=== PATIENT | female | born 1960 | race Hispanic/Latino ===

== ENCOUNTER 2016-11-29 16:30 | Emergency (ER) | payer MEDICAID ==
[2016-11-29 16:30] VITALS: BMI 45.7
[2016-11-29 16:46] VITALS: TEMP 98.2; O2SAT 97
--- NOTE | 2016-11-29 18:22 | ED PDOC ---
Lower Extremity Pain/Injury Time Seen by Provider: 11/29/16 18:03 Chief Complaint (Nursing): Lower Extremity Problem/Injury History Per: Patient Additional Complaint(s): Pt. states yesterday she attempted to get up from a low seated position when she suddenly felt her L knee "pop." Since then she's been having pain to the area. Has been taking "Motrin and Ultram" (last dose was last night). Pt. states she did not fall down as another person was able to keep her from falling. Denies previous knee problems, blunt trauma, calf pain, numbness, tingling. Past Medical History Reviewed: Historical Data, Nursing Documentation, Vital Signs Vital Signs: Last Vital Signs Temp 98.2 F 11/29/16 16:39 Pulse 74 11/29/16 16:39 Resp 18 11/29/16 16:39 BP 98/59 L 11/29/16 16:39 Pulse Ox 97 11/29/16 16:39 - Medical History PMH: Anxiety, Arthritis, Asthma, Depression, Diabetes, HTN, Hypercholesterolemia , Kidney Stones (stent placement), Pneumonia, Chronic Kidney Disease Denies: HIV - Family History Family History: States: Unknown Family Hx - Immunization History Hx Tetanus Toxoid Vaccination: No Hx Influenza Vaccination: Yes Hx Pneumococcal Vaccination: Yes - Home Medications Home Medications: Ambulatory Orders Medication Instructions Recorded Amitriptyline [Elavil] 10 mg PO BID 08/24/15 Hydrochlorothiazide 25 mg PO DAILY 08/24/15 MetFORMIN [glucoPHAGE] 1,000 mg PO BID 08/24/15 Metoprolol Tartrate 25 mg PO BID #0 tablet 08/24/15 Omeprazole 20 mg PO HS 08/24/15 Oxybutynin XL [Ditropan XL] 10 mg PO BID 08/24/15 Simvastatin 20 mg PO DAILY 08/24/15 clonazePAM [Klonopin] 0.5 mg PO HS 08/24/15 Multivit,Iron,Min 5/Folic Acid 1 tab PO DAILY 03/19/16 [Strovite Forte Caplet] Multimineral/Multivitamin 1 tab PO DAILY #0 tab 03/21/16 [Therapeutic-M Tab] Ziprasidone [Geodon] 40 mg PO HS #0 cap 03/21/16 Calcium/Vitamin D [Oyster Shell 1 tab PO BID #0 tab 03/29/16 Calcium/Vitamin D 500 mg-200 IU] Cyanocobalamin [Vitamin B12 1000 1,000 mcg PO DAILY #0 tab 03/29/16 mcg Tab] Escitalopram [Lexapro] 20 mg PO HS #0 tab 03/29/16 Gabapentin [Neurontin] 600 mg PO TID@0900,1700,2200 #0 tab 03/29/16 Losartan [Cozaar] 25 mg PO DAILY #0 tab 03/29/16 traMADol/Acetaminophen [Ultracet 1 tab PO Q6 PRN #10 tab 03/29/16 325 MG-37.5 MG] Dicyclomine [Bentyl] 20 mg PO Q6 PRN #12 tab 08/21/16 Metoclopramide [Reglan] 10 mg PO Q8 #12 tab 08/21/16 metroNIDAZOLE 0.75% [Metrogel 45 gm EXT BID #1 tube 11/10/16 Cream] traMADol [Ultram] 50 mg PO TID PRN #12 tab 11/10/16 - Allergies Allergies/Adverse Reactions: Allergies Allergy/AdvReac Type Severity Reaction Status Date / Time acetaminophen [From Percocet] Allergy RASH Verified 11/10/16 17:45 ciprofloxacin [From Cipro] Allergy RASH Verified 11/10/16 17:45 ciprofloxacin HCl Allergy RASH Verified 11/10/16 17:45 [From Cipro] hydromorphone HCl Allergy RASH Verified 11/10/16 17:45 [From Dilaudid] lisinopril Allergy RASH Verified 11/10/16 17:45 morphine Allergy ITCHING Verified 11/10/16 17:45 nitroglycerin Allergy RASH Verified 11/10/16 17:45 oxycodone HCl [From Percocet] Allergy RASH Verified 11/10/16 17:45 Penicillins Allergy RASH Verified 11/10/16 17:45 Review of Systems ROS Statement: Except As Marked, All Systems Reviewed And Found Negative Physical Exam - Physical Exam Appears: Positive for: Well, Non-toxic, No Acute Distress Skin: Positive for: Normal Color, Warm. Negative for: Rash Pulses-Dorsalis Pedis (L): 2+ Pulses-Dorsalis Pedis (R): 2+ Extremity: Positive for: Normal ROM, Capillary Refill (< 2 seconds of LLE), Other (L knee with mild anterior tenderness without deformity or swelling). Negative for: Pedal Edema, Calf Tenderness (b/l) - ECG ECG: Positive for: Interpreted By Me ECG Rhythm: Positive for: Sinus Rhythm. Negative for: ST/T Changes Rate: 90 O2 Sat by Pulse Oximetry: 97 - Radiology X-Ray: Interpreted by Me (L knee x-ray) X-Ray Interpretation: Other (moderate DJD; multiple osteophytes) - Progress ED Course And Treament: Repeat BP: 105/70 Knee x-ray ordered which showed multiple osteophytes. CT ordered. Disposition - Clinical Impression Clinical Impression: Knee pain - Patient ED Disposition Is Patient to be Admitted: Transfer of Care (Signed out to Claribel TATUM pending CT results and final disposition.) - Disposition Referrals: Fahad Montes MD [Staff Provider] - Disposition Time: 20:00 Condition: STABLE
[2016-11-29 19:25] VITALS: BP 105/70; RESP 19
[2016-11-29 19:51] VITALS: PULSE 90
--- NOTE | 2016-11-29 20:28 | CT ---
EXAM: CT Left Lower Extremity Without Intravenous Contrast, Knee CLINICAL HISTORY: 56 years old, female; Pain; Knee; Left; Additional info: Patient attempted to get up from a low seated position when she suddenly felt her left knee "pop". Since then she's been having pain. TECHNIQUE: Axial computed tomography images of the left knee without intravenous contrast. This CT exam was performed using one or more of the following dose reduction techniques: automated exposure control, adjustment of the mA and/or kV according to patient size, and/or use of iterative reconstruction technique. Coronal and sagittal reformatted images were created and reviewed. EXAM DATE/TIME: 11/29/2016 7:21 PM COMPARISON: Recent left knee radiographs 11/29/2016 6:18:25 PM FINDINGS: BONES/JOINTS: Moderate knee joint effusion is seen. This does not appear hemorrhagic or contain fat to suggest a lipohemarthrosis. Tricompartmental osteoarthritic/degenerative changes. There are moderate tricompartmental osteoarthritic changes seen--osteophyte formation, subchondral cystic changes, and subchondral sclerosis are noted. The joint spaces appear relatively preserved. No acute fractures are seen. No evidence of acute dislocation. SOFT TISSUES: 5.5 x 2.6 cm Antony's cyst noted. No evidence of soft tissue hematoma. Note that the extremity soft tissues, such as the tendons and ligaments, are suboptimally evaluated by CT compared with MRI. IMPRESSION: - No acute fractures identified. - Moderate knee joint effusion. - 5.5 cm Antony's cyst. - Osteoarthritic changes, as described. - See above for remaining findings.
--- NOTE | 2016-11-29 20:36 | ED PDOC ---
- ECG O2 Sat by Pulse Oximetry: 97 - Progress ED Course And Treament: Case endorsed to marketing underwriter from Ryley TATUM pending CT lower extremity EXAM: CT Left Lower Extremity Without Intravenous Contrast, Knee CLINICAL HISTORY: 56 years old, female; Pain; Knee; Left; Additional info: Patient attempted to get up from a low seated position when she suddenly felt her left knee "pop". Since then she's been having pain. TECHNIQUE: Axial computed tomography images of the left knee without intravenous contrast. This CT exam was performed using one or more of the following dose reduction techniques: automated exposure control, adjustment of the mA and/or kV according to patient size, and/or use of iterative reconstruction technique. Coronal and sagittal reformatted images were created and reviewed. EXAM DATE/TIME: 11/29/2016 7:21 PM COMPARISON: Recent left knee radiographs 11/29/2016 6:18:25 PM FINDINGS: BONES/JOINTS: Moderate knee joint effusion is seen. This does not appear hemorrhagic or contain fat to suggest a lipohemarthrosis. Tricompartmental osteoarthritic/degenerative changes. There are moderate tricompartmental osteoarthritic changes seen--osteophyte formation, subchondral cystic changes, and subchondral sclerosis are noted. The joint spaces appear relatively preserved. No acute fractures are seen. No evidence of acute dislocation. SOFT TISSUES: 5.5 x 2.6 cm Antony's cyst noted. No evidence of soft tissue hematoma. Note that the extremity soft tissues, such as the tendons and ligaments, are suboptimally evaluated by CT compared with MRI. IMPRESSION: - No acute fractures identified. - Moderate knee joint effusion. - 5.5 cm Antony's cyst. - Osteoarthritic changes, as described. - See above for remaining findings. Patient educated on findings, left knee wrapped in JILLIAN compression. Rx Naproxen provided. Patient educated on RICE. Patient states she has an orthopedist she would like to follow up with and has an appt with her primary care doctor next week to obtain referral. Return to ED for worsening/concerning symtoms. Disposition - Clinical Impression Clinical Impression: Knee pain, Bakers cyst - POA Present On Arrival: None - Disposition Referrals: Fahad Montes MD [Staff Provider] - Disposition: Routine/Home Disposition Time: 20:37 Condition: STABLE Prescriptions: Naproxen [Naprosyn] 500 mg PO Q12 PRN #20 tablet PRN Reason: Pain, Moderate (4-7) Instructions: Antony's Cyst (ED), Swollen Knee Joint (ED), RICE Therapy (ED)
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
== END 2016-11-29 23:47 | disposition home or self-care (01) ==
LOC: H.ER 16:30
DX: M71.22 Synovial cyst of popliteal space [Baker], left knee (principal); M17.12 Unilateral primary osteoarthritis, left knee; E11.22 Type 2 diabetes mellitus with diabetic chronic kidney disease; E78.00 Pure hypercholesterolemia, unspecified; F32.9 Major depressive disorder, single episode, unspecified; F41.9 Anxiety disorder, unspecified; I12.9 Hypertensive chronic kidney disease with stage 1 through stage 4 chronic kidney disease, or unspecified chronic kidney disease; J45.909 Unspecified asthma, uncomplicated; Z79.84 Long term (current) use of oral hypoglycemic drugs; Z88.0 Allergy status to penicillin

== ENCOUNTER 2016-12-19 10:58 | Observation (INO) | payer MEDICAID ==
[2016-12-19 10:58] VITALS: BMI 45.7
[2016-12-19 11:03] VITALS: TEMP 98
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
[2016-12-19] MEDS ORDERED: DiphenhydrAMINE 50 mg/ml Inj IVP STA (11:49)
[2016-12-19] MEDS ORDERED: Sodium Chloride 0.9% 1,000 ML IV STA ×3 (11:50→14:39)
[2016-12-19] MEDS ORDERED: DiphenhydrAMINE 50 mg/ml Inj ONE (11:53)
[2016-12-19 12:11] LABS: BASO # 0.1 K/uL (0.0-0.2); BASO % 1.3 % (0.0-2.0); EOS # 0.1 K/uL (0.0-0.7); EOS % 1.7 % (0.0-4.0); HEMOGLOBIN 11.9 g/dL (12.0-16.0); LYMPH # 2.1 K/uL (1.0-4.3); LYMPH % 26.3 % (20.0-40.0); MEAN CELL VOLUME 74.2 fl (81.0-99.0); MEAN CORPUSCULAR HEMOGLOBIN 23.8 pg (27.0-31.0); MONO # 0.5 K/uL (0.0-0.8); MONO % 6.2 % (0.0-10.0); NEUT # 5.1 K/uL (1.8-7.0); NEUT % 64.5 % (50.0-75.0); NRBC % 0.2 % (0.0-0.0); RED CELL DISTRIBUTION WIDTH 17.3 % (11.5-14.5); WHITE BLOOD COUNT 7.9 K/uL (4.8-10.8)
[2016-12-19 12:38] LABS: ALB/GLOB RATIO 1.3 (1.0-2.1); ALBUMIN 4.1 g/dL (3.5-5.0); CALCIUM 10.2 mg/dL (8.4-10.2)
--- NOTE | 2016-12-19 15:56 | CT ---
PROCEDURE: CT Abdomen and Pelvis without intravenous contrast HISTORY: r/o renal stone COMPARISON: 08/21/2016 TECHNIQUE: Technique. Unenhanced study. Neither oral nor intravenous contrast administered. Radiation dose: Total exam DLP = mGy-cm. This CT exam was performed using one or more of the following dose reduction techniques: Automated exposure control, adjustment of the mA and/or kV according to patient size, and/or use of iterative reconstruction technique. FINDINGS: LOWER THORAX: Unremarkable. LIVER: Unremarkable. No gross lesion or ductal dilatation. GALLBLADDER AND BILE DUCTS: Unremarkable. PANCREAS: Unremarkable. No gross lesion or ductal dilatation. SPLEEN: Unremarkable. ADRENALS: Unremarkable. No mass. KIDNEYS AND URETERS: Stable bilateral nonobstructing renal calculus disease. No evidence of hydroureter. Unremarkable urinary bladder is visualized. VASCULATURE: Unremarkable. No aortic aneurysm. BOWEL: Unremarkable. No obstruction. No gross mural thickening. APPENDIX: Unremarkable. Normal appendix. PERITONEUM: Unremarkable. No free fluid. No free air. LYMPH NODES: Unremarkable. No enlarged lymph nodes. BLADDER: Unremarkable. REPRODUCTIVE: Unremarkable. BONES: No acute fracture. OTHER FINDINGS: None. IMPRESSION: No significant interval change compared to the prior examination(s). Bilateral nonobstructing renal calculus disease. Largest stone in the lower pole of the right kidney measures 5 x 11 mm.
[2016-12-19 17:13] LABS: SQUAMOUS EPITHIAL 2 /hpf (0-5); URINE BILIRUBIN NEGATIVE (NEGATIVE); URINE BLOOD MODERATE (NEGATIVE); URINE CLARITY CLEAR (Clear); URINE COLOR YELLOW (YELLOW); URINE GLUCOSE (UA) NEG (Normal); URINE LEUKOCYTE ESTERASE TRACE Leu/uL (Negative); URINE NITRATE NEGATIVE (NEGATIVE); URINE PROTEIN 30 mg/dL (NEGATIVE); URINE UROBILINOGEN 0.2-1.0 mg/dL (0.2-1.0)
[2016-12-19 18:50] VITALS: BP 142/89; PULSE 72; RESP 18
[2016-12-20 16:52] VITALS: O2SAT 99
== END 2016-12-19 20:10 | disposition home or self-care (01) ==
LOC: H.ER 10:58 → H.EROBSV 16:25
PROVIDERS: ADMIT Emergency Medicine; ATTEND Emergency Medicine
DX: M54.9 Dorsalgia, unspecified (principal); E11.22 Type 2 diabetes mellitus with diabetic chronic kidney disease; J45.909 Unspecified asthma, uncomplicated; E78.00 Pure hypercholesterolemia, unspecified; I12.9 Hypertensive chronic kidney disease with stage 1 through stage 4 chronic kidney disease, or unspecified chronic kidney disease; N18.9 Chronic kidney disease, unspecified; Z87.442 Personal history of urinary calculi; F32.9 Major depressive disorder, single episode, unspecified; F41.9 Anxiety disorder, unspecified; M19.90 Unspecified osteoarthritis, unspecified site; F31.9 Bipolar disorder, unspecified; E66.9 Obesity, unspecified; G89.29 Other chronic pain; Z79.84 Long term (current) use of oral hypoglycemic drugs

== ENCOUNTER 2017-01-30 17:42 | Emergency (ER) | payer MEDICAID ==
[2017-01-30 17:43] VITALS: BMI 45.7
[2017-01-30 18:19] VITALS: BP 122/78; PULSE 92; RESP 20; TEMP 98; O2SAT 99
--- NOTE | 2017-01-30 18:32 | ED PDOC ---
Lower Extremity Pain/Injury Time Seen by Provider: 01/30/17 18:20 Chief Complaint (Nursing): Lower Extremity Problem/Injury Chief Complaint (Provider): left knee pain, right lower back pain History Per: Patient History/Exam Limitations: no limitations Onset/Duration Of Symptoms: Mins (45) Current Symptoms Are (Timing): Still Present Severity: Moderate Additional History Per: Patient Additional Complaint(s): The patient is a 56yo female, past medical history of DM, hypertension, presents to the ED for evaluation of a twisting type injury to her left knee and lower back. Patient reports she missed a step and while attempting to stop herself from falling, she heard a popping noise in her left knee followed by pain and swelling, as well as twisting her lower back resulting in pain. Patient states she has had prior "popping" injury to her left knee and currently follows up with an orthopedist; states she is scheduled for an MRI soon. She denies taking any medication for her pain, also denies numbness or tingling. She offers no additional medical complaints. PCP; Dr. Smith - Knee Description Of Injury: Twisted Past Medical History Reviewed: Historical Data, Nursing Documentation, Vital Signs Vital Signs: Last Vital Signs Temp 98.0 F 01/30/17 18:15 Pulse 92 H 01/30/17 18:15 Resp 20 01/30/17 18:15 BP 122/78 01/30/17 18:15 Pulse Ox 99 01/30/17 18:15 - Medical History PMH: Anxiety, Arthritis, Asthma, Depression, Diabetes, HTN, Hypercholesterolemia , Kidney Stones (stent placement), Pneumonia, Chronic Kidney Disease Denies: HIV - Surgical History Surgical History: No Surg Hx - Family History Family History: States: Unknown Family Hx - Immunization History Hx Tetanus Toxoid Vaccination: No Hx Influenza Vaccination: Yes Hx Pneumococcal Vaccination: Yes - Home Medications Home Medications: Ambulatory Orders Medication Instructions Recorded MetFORMIN [glucoPHAGE] 1,000 mg PO BID 08/24/15 Omeprazole 20 mg PO BID 08/24/15 Simvastatin 20 mg PO DAILY 08/24/15 clonazePAM [Klonopin] 0.5 mg PO BID 08/24/15 Cyanocobalamin [Vitamin B12 1000 1,000 mcg PO DAILY #0 tab 03/29/16 mcg Tab] Losartan [Cozaar] 25 mg PO DAILY #0 tab 03/29/16 Naproxen [Naprosyn] 500 mg PO Q12 PRN #20 tablet 11/29/16 Albuterol HFA [Ventolin HFA 90 2 puff IH Q4H PRN 12/19/16 mcg/actuation (8 g)] Aspirin [Ecotrin] 81 mg PO DAILY 12/19/16 Calcium/Vitamin D [Oyster Shell 1 tab PO DAILY 12/19/16 Calcium/Vitamin D 500 mg-200 IU] Cetirizine HCl [Wal-Zyr] 10 mg PO DAILY 12/19/16 Citalopram Hydrobromide [Celexa] 20 mg PO DAILY 12/19/16 Fluticasone Nasal [Flonase] 2 spray IBAN DAILY PRN 12/19/16 Gabapentin [Neurontin] 600 mg PO DAILY 12/19/16 Metoprolol Tartrate [Lopressor] 25 mg PO BID 12/19/16 Multivitamin [Multi-Vitamin Daily] 1 tab PO DAILY 12/19/16 Oxybutynin XL [Ditropan XL] 15 mg PO DAILY 12/19/16 Potassium Citrate [Urocit-K ER Tab] 10 meq PO TID 12/19/16 Potassium Citrate [Urocit-K] 15 meq PO BID 12/19/16 Tamsulosin [Flomax] 0.4 mg PO DAILY 12/19/16 Ziprasidone [Geodon] 40 mg PO BID 12/19/16 traZODone [Desyrel] 100 mg PO HS 12/19/16 Naproxen 500 mg PO Q12 PRN #14 ect 01/30/17 - Allergies Allergies/Adverse Reactions: Allergies Allergy/AdvReac Type Severity Reaction Status Date / Time acetaminophen [From Percocet] Allergy RASH Verified 12/19/16 11:09 ciprofloxacin [From Cipro] Allergy RASH Verified 12/19/16 11:09 ciprofloxacin HCl Allergy RASH Verified 12/19/16 11:09 [From Cipro] hydromorphone HCl Allergy RASH Verified 12/19/16 11:09 [From Dilaudid] lisinopril Allergy RASH Verified 12/19/16 11:09 morphine Allergy ITCHING Verified 12/19/16 11:09 nitroglycerin Allergy RASH Verified 12/19/16 11:09 oxycodone HCl [From Percocet] Allergy RASH Verified 07/11/17 11:09 Penicillins Allergy RASH Verified 12/19/16 11:09 Review of Systems ROS Statement: Except As Marked, All Systems Reviewed And Found Negative Musculoskeletal: Positive for: Back Pain, Leg Pain (left knee) Physical Exam - Reviewed Nursing Documentation Reviewed: Yes Vital Signs Reviewed: Yes - Physical Exam Appears: Positive for: Well, Non-toxic, No Acute Distress Head Exam: Positive for: ATRAUMATIC, NORMAL INSPECTION, NORMOCEPHALIC Skin: Positive for: Normal Color, Dry Eye Exam: Positive for: Normal appearance Neck: Positive for: Normal, Supple Cardiovascular/Chest: Positive for: Regular Rate, Rhythm Respiratory: Negative for: Respiratory Distress Pulses-Dorsalis Pedis (L): 2+ Back: Positive for: Other (right paralumbar and parathoracic tenderness). Negative for: Vertebral Tenderness Extremity: Positive for: Tenderness (medial left knee tenderness), Swelling ( mild effusion of left knee). Negative for: Normal ROM (limited ROM due to pain however patient able to fully extend and flex slowly at left knee), Deformity Neurologic/Psych: Positive for: Alert, Oriented. Negative for: Motor/Sensory Deficits - ECG O2 Sat by Pulse Oximetry: 99 (RA) Pulse Ox Interpretation: Normal - Progress ED Course And Treament: xry of knee: wnl Placed in knee immobilizer and given crutch instructions. Medical Decision Making Medical Decision Making: Time: 1829 Impression: Lower back pain and left knee pain Plan: -- Toradol 30 mg IM -- XR Left knee Reassess Scribe Attestation: Documented by Krystina Stephenson acting as a scribe for FREYA Fernandez Provider Attestation: All medical record entries made by the Scribe were at my direction and personally dictated by me. I have reviewed the chart and agree that the record accurately reflects my personal performance of the history, physical exam, medical decision making, and the department course for this patient. I have also personally directed, reviewed, and agree with the discharge instructions and disposition. Disposition - Clinical Impression Clinical Impression: Knee injury, Back strain - Patient ED Disposition Is Patient to be Admitted: No - Disposition Disposition: Routine/Home Disposition Time: 19:30 Condition: FAIR Prescriptions: Naproxen 500 mg PO Q12 PRN #14 ect PRN Reason: Pain, Moderate (4-7) Instructions: Knee Pain (ED), Thoracic Back Strain (ED) Forms: [employer] ([place])
--- NOTE | 2017-01-31 09:14 | RAD ---
PROCEDURE: Left Knee Radiographs. HISTORY: Pain. COMPARISON: 11/29/2016 FINDINGS: BONES: Normal. No fracture. JOINTS: Mild tricompartmental osteoarthritis. No articular erosions. JOINT EFFUSION: None. OTHER FINDINGS: None. IMPRESSION: Mild tricompartmental osteoarthritis. No acute fracture.
== END 2017-01-30 20:14 | disposition home or self-care (01) ==
LOC: H.ER 17:42
DX: S89.92XA Unspecified injury of left lower leg, initial encounter (principal); S39.012A Strain of muscle, fascia and tendon of lower back, initial encounter; X50.9XXA Other and unspecified overexertion or strenuous movements or postures, initial encounter; Y92.89 Other specified places as the place of occurrence of the external cause; E11.22 Type 2 diabetes mellitus with diabetic chronic kidney disease; F32.9 Major depressive disorder, single episode, unspecified; F41.9 Anxiety disorder, unspecified; Z79.82 Long term (current) use of aspirin; Z79.84 Long term (current) use of oral hypoglycemic drugs; Z88.0 Allergy status to penicillin
CPT/HCPCS: 73562; 82948; 96372; 99283; J1885

== ENCOUNTER 2017-02-18 02:38 | Emergency (ER) | payer MEDICAID ==
[2017-02-18 02:48] VITALS: BMI 44.1
--- NOTE | 2017-02-18 02:50 | ED PDOC ---
Lower Extremity Pain/Injury Time Seen by Provider: 02/18/17 02:45 Chief Complaint (Nursing): Lower Extremity Problem/Injury Chief Complaint (Provider): Knee Pain History Per: Patient Additional Complaint(s): The patient is a 56yo female, past medical history of DM, hypertension, presents to the ED for evaluation of severe left knee pain. Patient states she has had prior "popping" injury to her left knee and currently follows up with an orthopedist, scheduled to see him on Sunday. (Dr. Saleh) Pt states she is scheduled for an MRI soon. She denies taking any medication for her pain, also denies numbness or tingling. She offers no additional medical complaints. PCP; Dr. Smith Past Medical History Reviewed: Nursing Documentation, Vital Signs - Medical History PMH: Anxiety, Arthritis, Asthma, Depression, Diabetes, HTN, Hypercholesterolemia , Kidney Stones (stent placement), Pneumonia, Chronic Kidney Disease Denies: HIV - Family History Family History: States: Unknown Family Hx - Living Arrangements Living Arrangements: Alone - Social History Current smoker - smoking cessation education provided: No Alcohol: None Drugs: Denies - Immunization History Hx Tetanus Toxoid Vaccination: No Hx Influenza Vaccination: Yes Hx Pneumococcal Vaccination: Yes - Home Medications Home Medications: Ambulatory Orders Medication Instructions Recorded MetFORMIN [glucoPHAGE] 1,000 mg PO BID 08/24/15 Omeprazole 20 mg PO BID 08/24/15 Simvastatin 20 mg PO DAILY 08/24/15 clonazePAM [Klonopin] 0.5 mg PO BID 08/24/15 Cyanocobalamin [Vitamin B12 1000 1,000 mcg PO DAILY #0 tab 03/29/16 mcg Tab] Losartan [Cozaar] 25 mg PO DAILY #0 tab 03/29/16 Naproxen [Naprosyn] 500 mg PO Q12 PRN #20 tablet 11/29/16 Albuterol HFA [Ventolin HFA 90 2 puff IH Q4H PRN 12/19/16 mcg/actuation (8 g)] Aspirin [Ecotrin] 81 mg PO DAILY 12/19/16 Calcium/Vitamin D [Oyster Shell 1 tab PO DAILY 12/19/16 Calcium/Vitamin D 500 mg-200 IU] Cetirizine HCl [Wal-Zyr] 10 mg PO DAILY 12/19/16 Citalopram Hydrobromide [Celexa] 20 mg PO DAILY 12/19/16 Fluticasone Nasal [Flonase] 2 spray IBAN DAILY PRN 12/19/16 Gabapentin [Neurontin] 600 mg PO DAILY 12/19/16 Metoprolol Tartrate [Lopressor] 25 mg PO BID 12/19/16 Multivitamin [Multi-Vitamin Daily] 1 tab PO DAILY 12/19/16 Oxybutynin XL [Ditropan XL] 15 mg PO DAILY 12/19/16 Potassium Citrate [Urocit-K ER Tab] 10 meq PO TID 12/19/16 Potassium Citrate [Urocit-K] 15 meq PO BID 12/19/16 Tamsulosin [Flomax] 0.4 mg PO DAILY 12/19/16 Ziprasidone [Geodon] 40 mg PO BID 12/19/16 traZODone [Desyrel] 100 mg PO HS 12/19/16 Naproxen 500 mg PO Q12 PRN #14 ect 01/30/17 traMADol [Ultram] 50 mg PO Q6 #10 tab 02/18/17 - Allergies Allergies/Adverse Reactions: Allergies Allergy/AdvReac Type Severity Reaction Status Date / Time acetaminophen [From Percocet] Allergy RASH Verified 02/18/17 02:48 ciprofloxacin [From Cipro] Allergy RASH Verified 02/18/17 02:48 ciprofloxacin HCl Allergy RASH Verified 02/18/17 02:48 [From Cipro] hydromorphone HCl Allergy RASH Verified 02/18/17 02:48 [From Dilaudid] lisinopril Allergy RASH Verified 02/18/17 02:48 morphine Allergy ITCHING Verified 02/18/17 02:48 nitroglycerin Allergy RASH Verified 02/18/17 02:48 oxycodone HCl [From Percocet] Allergy RASH Verified 02/18/17 02:48 Penicillins Allergy RASH Verified 02/18/17 02:48 Review of Systems ROS Statement: Except As Marked, All Systems Reviewed And Found Negative Musculoskeletal: Positive for: Other (knee pain) Physical Exam - Reviewed Nursing Documentation Reviewed: Yes Vital Signs Reviewed: Yes - Physical Exam Appears: Positive for: Well, Non-toxic, No Acute Distress Head Exam: Positive for: ATRAUMATIC, NORMAL INSPECTION, NORMOCEPHALIC Skin: Positive for: Normal Color, Warm, DRY Eye Exam: Positive for: EOMI, Normal appearance, PERRL ENT: Positive for: Normal ENT Inspection Neck: Positive for: Normal, Painless ROM Cardiovascular/Chest: Positive for: Regular Rate, Rhythm Respiratory: Positive for: CNT, Normal Breath Sounds Gastrointestinal/Abdominal: Positive for: Normal Exam, Bowel Sounds, Soft Back: Positive for: Normal Inspection Extremity: Positive for: Tenderness. Negative for: Deformity, Swelling Neurologic/Psych: Positive for: Alert, Oriented Medical Decision Making Medical Decision Making: XR: Severe DJD, NAD, as read by RC XR from 01/30/17: IMPRESSION: Mild tricompartmental osteoarthritis. No acute fracture. CT IMPRESSION 11/29/16: - No acute fractures identified. - Moderate knee joint effusion. - 5.5 cm Antony's cyst. - Osteoarthritic changes, as described. - See above for remaining findings. Medicated with tramadol PO. Knee Immobilizer in place Disposition - Clinical Impression Clinical Impression: Knee pain, DJD (degenerative joint disease) - Patient ED Disposition Is Patient to be Admitted: No - Disposition Disposition: Routine/Home Disposition Time: 05:32 Condition: STABLE Prescriptions: traMADol [Ultram] 50 mg PO Q6 #10 tab Instructions: Knee Pain (ED) Forms: [employer] ([place])
[2017-02-18 02:51] VITALS: RESP 16
[2017-02-18] MEDS ORDERED: Oxycodone/Acetaminophen 5/325 mg Tab PO STA (02:59)
[2017-02-18] MEDS ORDERED: Oxycodone/Acetaminophen 5/325 mg Tab ONE (03:06)
[2017-02-18 06:09] VITALS: BP 163/98; PULSE 92; TEMP 98.8; O2SAT 98
--- NOTE | 2017-02-18 10:44 | RAD ---
PROCEDURE: Left Knee Radiographs. HISTORY: Pain. No history of recent/ related trauma provided COMPARISON: None. FINDINGS: BONES: No acute fracture. Proliferative hypertrophic changes emanating from the femoral condyle and tibial plateau JOINTS: Tricompartmental degenerative changes, mild JOINT EFFUSION: None. OTHER FINDINGS: None. IMPRESSION: No acute findings related to/accounting for the clinical presentation. No preliminary report provided by emergency department personnel.
== END 2017-02-18 06:16 | disposition home or self-care (01) ==
LOC: H.ER 02:38
DX: M25.562 Pain in left knee (principal); M17.12 Unilateral primary osteoarthritis, left knee; E11.22 Type 2 diabetes mellitus with diabetic chronic kidney disease; F32.9 Major depressive disorder, single episode, unspecified; F41.9 Anxiety disorder, unspecified; I12.9 Hypertensive chronic kidney disease with stage 1 through stage 4 chronic kidney disease, or unspecified chronic kidney disease; Z79.82 Long term (current) use of aspirin; Z79.84 Long term (current) use of oral hypoglycemic drugs; Z88.0 Allergy status to penicillin

== ENCOUNTER 2017-03-20 10:16 | Inpatient (IN) | payer MEDICAID ==
[2017-03-20 10:21] VITALS: BMI 43.8
--- NOTE | 2017-03-20 10:58 | ED PDOC ---
HPI: SOB/CHF/COPD Time Seen by Provider: 03/20/17 10:24 Chief Complaint (Nursing): Shortness Of Breath Chief Complaint (Provider): Shortness of breath History Per: Patient History/Exam Limitations: no limitations Onset/Duration Of Symptoms: Days (x1 month), Intermittent Episodes Current Symptoms Are (Timing): Better Current Respiratory Medications: Albuterol, Other (Tramadol & Percocet) Associated Symptoms: Dizziness. denies: Fever, Chest Pain, Bloody Cough, Productive Cough, Ankle/Leg Swelling Recently: Treated By A Physician ([facility]) Additional Complaint(s): Precious Lugo is a 56 year old female, with a past medical history of Hypertension, Diabetes, arthritis, asthma, pneumonia and kidney stones, who was brought to the emergency department by EMS complaining of difficulty breathing onset for 1 month. Patient was sent from the [facility]. She was seen earlier for left knee arthritis, she was noted to have increased rate of breathing. Patient reports she has been having intermittent episodes of difficulty breathing for the past month associated with dizziness and feeling like passing out. She takes albuterol pump when she feels shortness of breath because she suffers from "some mild form of asthma." She reports a syncopal episode weeks ago for a brief amount of time but denies any head injury at the time. She also reports having left knee pain and arthritis for a long time. She was recently prescribed tramadol and percocet. She has been wearing a knee immobilizer for 1 month and doesn't walk a lot during the day due to the knee problem. Patient states the symptoms have improved. She denies any chest pain, fever, cough, vomit or leg swelling. PMD: None provided. Past Medical History Reviewed: Historical Data, Nursing Documentation, Vital Signs Vital Signs: Last Vital Signs Temp 98 F 03/22/17 05:00 Pulse 74 03/22/17 05:00 Resp 18 03/22/17 05:00 BP 128/65 03/22/17 05:00 Pulse Ox 97 03/22/17 05:00 - Medical History PMH: Anxiety, Arthritis, Asthma, Depression, Diabetes, HTN, Hypercholesterolemia , Kidney Stones (stent placement), Pneumonia, Chronic Kidney Disease Denies: HIV - Family History Family History: States: Unknown Family Hx - Social History Current smoker - smoking cessation education provided: No Alcohol: None Drugs: Denies - Immunization History Hx Tetanus Toxoid Vaccination: No Hx Influenza Vaccination: Yes Hx Pneumococcal Vaccination: Yes - Home Medications Home Medications: Ambulatory Orders Medication Instructions Recorded MetFORMIN [glucoPHAGE] 1,000 mg PO BID 08/24/15 Omeprazole 20 mg PO BID 08/24/15 Simvastatin 20 mg PO QPM 08/24/15 clonazePAM [Klonopin] 1 mg PO HS 08/24/15 Losartan [Cozaar] 25 mg PO DAILY #0 tab 03/29/16 Albuterol HFA [Ventolin HFA 90 2 puff IH Q4H PRN 12/19/16 mcg/actuation (8 g)] Aspirin [Ecotrin] 81 mg PO DAILY 12/19/16 Calcium/Vitamin D [Oyster Shell 1 tab PO DAILY 12/19/16 Calcium/Vitamin D 500 mg-200 IU] Gabapentin [Neurontin] 600 mg PO HS 12/19/16 Multivitamin [Multi-Vitamin Daily] 1 tab PO DAILY 12/19/16 Oxybutynin XL [Ditropan XL] 15 mg PO Q12H 12/19/16 Potassium Citrate [Urocit-K ER Tab] 10 meq PO TID 12/19/16 Potassium Citrate [Urocit-K] 15 meq PO BID 12/19/16 Ziprasidone [Geodon] 40 mg PO BID 12/19/16 traZODone [Desyrel] 100 mg PO HS 12/19/16 Escitalopram [Lexapro] 20 mg PO HS 03/20/17 [place]-3 Fatty Acids/Fish Oil [Fish 1,000 mg PO BID 03/20/17 Oil 1,000 mg Capsule] oxyCODONE/Acetaminophen [Percocet 1 tab PO Q6H PRN 03/20/17 5/325 mg Tab] - Allergies Allergies/Adverse Reactions: Allergies Allergy/AdvReac Type Severity Reaction Status Date / Time ciprofloxacin [From Cipro] Allergy RASH Verified 02/18/17 02:48 ciprofloxacin HCl Allergy RASH Verified 02/18/17 02:48 [From Cipro] hydromorphone HCl Allergy RASH Verified 02/18/17 02:48 [From Dilaudid] lisinopril Allergy RASH Verified 02/18/17 02:48 morphine Allergy ITCHING Verified 02/18/17 02:48 nitroglycerin Allergy RASH Verified 02/18/17 02:48 Penicillins Allergy RASH Verified 02/18/17 02:48 Wells Criteria for PE - Wells Criteria for Pulmonary Embolism Clinical Signs and Symptoms of DVT: No P.E is #1 Diagnosis, or Equally Likely: No Heart Rate >100: No Immobilization at least 3 days;Surgery previous 4 weeks: No Previous, objectively diagnosed PE or DVT: No Hemoptysis: No Malignancy w/treatment within 6 months, or palliative: No Total Score: 0 Review of Systems ROS Statement: Except As Marked, All Systems Reviewed And Found Negative Constitutional: Negative for: Fever Cardiovascular: Negative for: Chest Pain Respiratory: Positive for: Shortness of Breath. Negative for: Cough Gastrointestinal: Negative for: Vomiting Musculoskeletal: Positive for: Leg Pain (left knee). Negative for: Other (leg swelling) Neurological: Positive for: Headache, Dizziness Physical Exam - Reviewed Nursing Documentation Reviewed: Yes Vital Signs Reviewed: Yes - Physical Exam Appears: Positive for: Well (comfortable), Non-toxic, No Acute Distress Head Exam: Positive for: ATRAUMATIC, NORMAL INSPECTION, NORMOCEPHALIC Skin: Positive for: Normal Color, Warm, Dry Eye Exam: Positive for: EOMI, Normal appearance, PERRL Neck: Positive for: Normal, Painless ROM, Supple Cardiovascular/Chest: Positive for: Regular Rate, Rhythm. Negative for: Murmur Respiratory: Positive for: Normal Breath Sounds. Negative for: Respiratory Distress Gastrointestinal/Abdominal: Positive for: Normal Exam, Bowel Sounds, Soft. Negative for: Tenderness, Guarding, Rebound Back: Positive for: Normal Inspection (No midline tenderness). Negative for: L CVA Tenderness, R CVA Tenderness Extremity: Positive for: Normal ROM. Negative for: Pedal Edema, Deformity, Swelling Neurologic/Psych: Positive for: Alert, Oriented. Negative for: Motor/Sensory Deficits - Laboratory Results Result Diagrams: 03/22/17 05:15 03/22/17 05:15 - ECG ECG Rhythm: Positive for: Normal QRS, Sinus Rhythm (Normal). Negative for: ST/ T Changes Rate: 86 O2 Sat by Pulse Oximetry: 96 (RA) Pulse Ox Interpretation: Normal Medical Decision Making Medical Decision Making: Initial Impression: Syncope, and dyspnea associated with dizziness. Differential includes: ACS, PE, cardiac arrhythmia, other causes of syncope. Dizziness induced by multiple medications. Initial Plan: --EKG --B-type Natriuretic Peptide --Basic Metabolic Panel --Thyroid Stimulating Hormone --Troponin I --Urine dipstick --CBC w/ differential --D Dimer --Chest one view [RAD], --reevaluation 1143 Chest x-ray FINDINGS: LUNGS: Clear. PLEURA: No pneumothorax or pleural fluid seen. CARDIOVASCULAR: Abnormal contour of right heart border caudally consistent with epicardial fat pad as demonstrated on CT angio chest 08/24/2015. Unchanged from prior chest radiograph. OSSEOUS STRUCTURES: No significant abnormalities. VISUALIZED UPPER ABDOMEN: Normal. OTHER FINDINGS: None. IMPRESSION: No active disease. Time: 14:21 --Angio Chest CT FINDINGS: PULMONARY ARTERIES: Unremarkable. No pulmonary embolism. AORTA: No acute findings. No thoracic aortic aneurysm. LUNGS: 5 mm nodule anterior basal right lower lobe, unchanged. 5 mm pleural-based nodule anterior left lung base, unchanged. No new nodule. No pulmonary infiltrate. PLEURAL SPACES: Unremarkable. No effusion or pneuomothorax. HEART: Unremarkable. No cardiomegaly. No significant pericardial effusion. LYMPH NODES: No lymphadenopathy. BONES, CHEST WALL: Unremarkable. No fracture or destructive lesion OTHER FINDINGS: Unremarkable. IMPRESSION: No evidence of pulmonary embolism. No pulmonary infiltrate. Two small pulmonary nodules unchanged from 08/24/2015 for which no follow-up evaluation is required. Scribe Attestation: Documented by Clement Vernon, acting as a scribe for Marley Day MD Provider Scribe Attestation: All medical record entries made by the Scribe were at my direction and personally dictated by me. I have reviewed the chart and agree that the record accurately reflects my personal performance of the history, physical exam, medical decision making, and the department course for this patient. I have also personally directed, reviewed, and agree with the discharge instructions and disposition. Scribe Attestation: Documented by Kaykay Ma, acting as a scribe for Marley Day MD. Provider Scribe Attestation: All medical record entries made by the Scribe were at my direction and personally dictated by me. I have reviewed the chart and agree that the record accurately reflects my personal performance of the history, physical exam, medical decision making, and the department course for this patient. I have also personally directed, reviewed, and agree with the discharge instructions and disposition. Disposition - Clinical Impression Clinical Impression: Dyspnea, Syncope - Patient ED Disposition Is Patient to be Admitted: Yes Discussed With : Kilo Guo Doctor Will See Patient In The: ED Counseled Patient/Family Regarding: Studies Performed, Diagnosis - Disposition Disposition Time: 15:00 Condition: FAIR - Pt Status Changed To: Hospital Disposition Of: Observation - POA Present On Arrival: None BRANDO Risk Score for UA/NSTEMI - BRANDO Risk Score Age > 64: NO 3 or more CAD Risk Factors: YES Known CAD (Stenosis greater than 50%): NO Aspirin use in past 7 days: NO Severe Angina: NO EKG ST changes greater than 0.5mm: NO Positive Cardiac Marker: NO BRANDO Score: 1 % risk at 14 days of: all cause mortality, new or recurrent NE, or severe recurrent ischemia requiring urgen revascularization: 5%
[2017-03-20 11:18] LABS: BASO # 0.1 K/uL (0.0-0.2); BASO % 0.9 % (0.0-2.0); EOS # 0.2 K/uL (0.0-0.7); EOS % 2.2 % (0.0-4.0); HEMATOCRIT 36.2 % (34.0-47.0); LYMPH # 1.7 K/uL (1.0-4.3); LYMPH % 21.2 % (20.0-40.0); MEAN CELL VOLUME 75.7 fl (81.0-99.0); MEAN CORPUSCULAR HEMOGLOBIN 24.6 pg (27.0-31.0); MEAN CORPUSCULAR HGB CONC 32.4 g/dL (33.0-37.0); MEAN PLATELET VOLUME 9.2 fl (7.2-11.7); MONO # 0.4 K/uL (0.0-0.8); NEUT # 5.7 K/uL (1.8-7.0); NEUT % 70.7 % (50.0-75.0); RED CELL DISTRIBUTION WIDTH 16.8 % (11.5-14.5)
[2017-03-20 11:28] LABS: BLOOD UREA NITROGEN 32 mg/dl (7-17); CALCIUM 9.7 mg/dL (8.4-10.2); CARBON DIOXIDE 20 mmol/L (22-30); CHLORIDE 108 mmol/L (98-107); GFR AFRICAN-AMERICAN > 60; GLUCOSE,RANDOM 168 mg/dL (65-105); SODIUM 143 mmol/l (132-148)
--- NOTE | 2017-03-20 11:45 | RAD ---
PROCEDURE: CHEST RADIOGRAPH, 1 VIEW HISTORY: dyspnea COMPARISON: 03/23/2016 FINDINGS: LUNGS: Clear. PLEURA: No pneumothorax or pleural fluid seen. CARDIOVASCULAR: Abnormal contour of right heart border caudally consistent with epicardial fat pad as demonstrated on CT angio chest 08/24/2015. Unchanged from prior chest radiograph. OSSEOUS STRUCTURES: No significant abnormalities. VISUALIZED UPPER ABDOMEN: Normal. OTHER FINDINGS: None. IMPRESSION: No active disease.
[2017-03-20 11:59] LABS: THYROID STIMULATING HORMONE 3.95 mIU/ML (0.46-4.68)
[2017-03-20] MEDS ORDERED: Oxycodone/Acetaminophen 5/325 mg Tab PO STA (14:19)
--- NOTE | 2017-03-20 14:22 | CT ---
PROCEDURE: CT Chest with contrast (Pulmonary Angiogram) HISTORY: chest pain COMPARISON: 08/24/2015 TECHNIQUE: Axial computed tomography images were obtained of the chest in the pulmonary arterial phase of enhancement. Coronal and sagittal reformatted images were created and reviewed. Intravenous contrast dose: 100 mL Visipaque 320 Radiation dose: Total exam DLP = 450.77 mGy-cm. This CT exam was performed using one or more of the following dose reduction techniques: Automated exposure control, adjustment of the mA and/or kV according to patient size, and/or use of iterative reconstruction technique. FINDINGS: PULMONARY ARTERIES: Unremarkable. No pulmonary embolism. AORTA: No acute findings. No thoracic aortic aneurysm. LUNGS: 5 mm nodule anterior basal right lower lobe, unchanged. 5 mm pleural-based nodule anterior left lung base, unchanged. No new nodule. No pulmonary infiltrate. PLEURAL SPACES: Unremarkable. No effusion or pneuomothorax. HEART: Unremarkable. No cardiomegaly. No significant pericardial effusion. LYMPH NODES: No lymphadenopathy. BONES, CHEST WALL: Unremarkable. No fracture or destructive lesion OTHER FINDINGS: Unremarkable. IMPRESSION: No evidence of pulmonary embolism. No pulmonary infiltrate. Two small pulmonary nodules unchanged from 08/24/2015 for which no follow-up evaluation is required.
[2017-03-20] MEDS ORDERED: Albuterol HFA 90 mcg/actuation (8 g) IH PRN (15:56)
--- NOTE | 2017-03-20 16:17 | CP.PCM.HP ---
History of Present Illness - History of Present Illness History of Present Illness: Precious Lugo is a pleasant 56 yo lady with pmhx of HTN, DM, Arthritis, Asthma, pneumonia, nephrolithiasis, incontinence, PTSD, anxiety, depression, migraines who presented to the ED after being seen in the [facility] clinic with Dr. Myers. She was sharing of presyncopal/dizziness episodes for the past month. She states that todays episode began when she was anxious about the new location of clinic and new process of registration. Episodes are intermittent, while walking or upon raising from a seated position. She shares of associated blurred vision, headaches and tachypnea (also 1 month in duration). She denies N /V/chest pain. ED course: EKG: NSR nonspecific ST and T wave abnormalities CT chest: no Pulmonary embolism or infiltrate CXR: no active disease UA: pending CBC with diff, BMP, BNP, TSH, Trop, D-dimer Percocet 5/325 given for pain. PMHx: HTN, DM, Arthritis, Asthma, pneumonia, nephrolithiasis, incontinence, PTSD , anxiety, depression, migraines PSurgHx: Hyterectomy, Lipoma, Hand, Foot PFamHx: Dad passed from [facility]; Mom passed from cerebral hemorrhage; Grandmother: stroke; PSocHx: Denies smoking or alcohol; shares of occasional Marijuana use to relax; disability for 10 years due to back pain and neuropathy; She has Aide that helps her for 2 hours a day on week days PMD: Dr. Myers ECW chart reviewed for meds. Present on Admission - Present on Admission Any Indicators Present on Admission: Yes History of Uncontrolled Diabetes: Yes Review of Systems - Constitutional Constitutional: Headache - EENT Eyes: Blurred Vision, Change in Vision - Cardiovascular Cardiovascular: absent: Chest Pain - Respiratory Additional comments: tachypnea - Gastrointestinal Gastrointestinal: absent: Nausea, Vomiting - Neurological Neurological: Dizziness - Psychiatric Psychiatric: As Per HPI, Anxiety, Depression Past Patient History - Past Medical History & Family History Past Medical History?: Yes - Past Social History Smoking Status: Never Smoked Chewing Tobacco Use: No Alcohol: None Drugs: Denies, Cannabis Home Situation {Lives}: Alone, Other (Has Aide that visits week) - CARDIAC Hx Hypercholesterolemia: Yes Hx Hypertension: Yes - PULMONARY Hx Asthma: Yes Hx Pneumonia: Yes - NEUROLOGICAL Hx Neurological Disorder: No - HEENT Hx HEENT Problems: No - RENAL Hx Chronic Kidney Disease: Yes Hx Kidney Stones: Yes (stent placement) - ENDOCRINE/METABOLIC Hx Diabetes Mellitus Type 2: Yes - HEMATOLOGICAL/ONCOLOGICAL Hx Human Immunodeficiency Virus (HIV): No - INTEGUMENTARY Hx Dermatological Problems: No - MUSCULOSKELETAL/RHEUMATOLOGICAL Hx Arthritis: Yes - GASTROINTESTINAL Hx Gastrointestinal Disorders: Yes Hx Gastroesophageal Reflux: Yes Hx Nausea: Yes Hx Vomiting: Yes - GENITOURINARY/GYNECOLOGICAL Hx Genitourinary Disorders: Yes Hx Urinary Tract Infection: Yes - PSYCHIATRIC Hx Anxiety: Yes Hx Depression: Yes - SURGICAL HISTORY Hx Surgeries: Yes Hx Hysterectomy: Yes Other/Comment: left foot surgery, left hand surgery - ANESTHESIA Hx Anesthesia: Yes Hx Anesthesia Reactions: No Hx Malignant Hyperthermia: No Meds Allergies/Adverse Reactions: Allergies Allergy/AdvReac Type Severity Reaction Status Date / Time acetaminophen [From Percocet] Allergy RASH Verified 02/18/17 02:48 ciprofloxacin [From Cipro] Allergy RASH Verified 02/18/17 02:48 ciprofloxacin HCl Allergy RASH Verified 02/18/17 02:48 [From Cipro] hydromorphone HCl Allergy RASH Verified 02/18/17 02:48 [From Dilaudid] lisinopril Allergy RASH Verified 02/18/17 02:48 morphine Allergy ITCHING Verified 02/18/17 02:48 nitroglycerin Allergy RASH Verified 02/18/17 02:48 oxycodone HCl [From Percocet] Allergy RASH Verified 02/18/17 02:48 Penicillins Allergy RASH Verified 02/18/17 02:48 Physical Exam - Eye Exam Eye Exam: EOMI, PERRL. absent: Nystagmus - Respiratory Exam Respiratory Exam: Clear to Auscultation Bilateral, NORMAL BREATHING PATTERN - Cardiovascular Exam Cardiovascular Exam: REGULAR RHYTHM, +S1, +S2 - GI/Abdominal Exam GI & Abdominal Exam: Normal Bowel Sounds, Soft - Neurological Exam Neurological exam: Alert, CN II-XII Intact, Oriented x3 Additional comments: Pt has history of R knee arthritis; Ambulates with cane or walker. Her orthopedist has recommended "knee replacement". - Psychiatric Exam Psychiatric exam: Normal Affect, Normal Mood Results - Vital Signs Recent Vital Signs: Last Vital Signs Temp 97.7 F 03/20/17 14:22 Pulse 86 03/20/17 15:26 Resp 18 03/20/17 14:22 BP 131/81 03/20/17 14:22 Pulse Ox 96 03/20/17 15:26 - Labs Result Diagrams: 03/20/17 11:06 03/20/17 11:06 Labs: Laboratory Results - last 24 hr 03/20/17 03/20/17 03/20/17 11:06 11:06 11:06 WBC 8.0 RBC 4.78 Hgb 11.7 L Hct 36.2 MCV 75.7 L MCH 24.6 L MCHC 32.4 L RDW 16.8 H Plt Count 221 MPV 9.2 Neut % (Auto) 70.7 Lymph % (Auto) 21.2 [place] % (Auto) 5.0 Eos % (Auto) 2.2 Baso % (Auto) 0.9 Neut # 5.7 Lymph # 1.7 [place] # 0.4 Eos # 0.2 Baso # 0.1 D-Dimer, Quantitative 498 H Sodium 143 Potassium 4.0 Chloride 108 H Carbon Dioxide 20 L Anion Gap 19 BUN 32 H Creatinine 1.1 Est GFR ( Amer) > 60 Est GFR (Non-Af Amer) 51 Random Glucose 168 H Calcium 9.7 Troponin I < 0.0120 NT-Pro-B Natriuret Pep 688 TSH 3rd Generation 3.95 Assessment & Plan - Assessment and Plan (Free Text) Plan: Precious Lugo is a pleasant 56 yo lady with pmhx of HTN, DM, Arthritis, Asthma, pneumonia, nephrolithiasis, incontinence, PTSD, anxiety, depression, migraines who presented to the ED with dizziness. 1) Presyncope -Dizziness for 1 month duration -r/o PE due to CT chest: negative for Pulmonary embolism or infiltrate -[facility] with EKG: NSR, nonspecific ST and T wave abnormality; Troponin I negative; -PT/OT eval for ambulation -ECHO tomorrow. -repeat labs in AM 2) Anxiety -Continue meds 3) Migraines -Continue on meds: Fiorecet 4) DM - continue meds - Monitor blood glucose 5) Neuropathy -Continue meds 6) HTN -Continue meds 7) Asthma -Continue meds 8) Depression -Continue meds 9) DVT prophylaxis -[facility]CD Fortunato Mcgovern, PGY1
[2017-03-20] MEDS ORDERED: Influenza Vaccine 18yr & older 0.5 ML/45 MCG SYR IM ONE (18:08)
[2017-03-21 05:37] LABS: ALB/GLOB RATIO 1.3 (1.0-2.1); BILIRUBIN,TOTAL 0.4 mg/dl (0.2-1.3); CALCIUM 9.5 mg/dL (8.4-10.2); POTASSIUM 4.5 MMOL/L (3.6-5.0); TOTAL PROTEIN 6.1 G/DL (6.3-8.2)
[2017-03-21 06:57] LABS: HEMATOCRIT 35.9 % (34.0-47.0); MEAN CELL VOLUME 76.2 fl (81.0-99.0); MEAN CORPUSCULAR HEMOGLOBIN 24.5 pg (27.0-31.0); MEAN CORPUSCULAR HGB CONC 32.1 g/dL (33.0-37.0); RED CELL DISTRIBUTION WIDTH 16.6 % (11.5-14.5); WHITE BLOOD COUNT 7.8 K/uL (4.8-10.8)
--- NOTE | 2017-03-21 08:46 | CP.PCM.PN ---
Subjective - Date & Time of Evaluation Date of Evaluation: 03/21/17 Time of Evaluation: 08:20 - Subjective Subjective: Pt seen and examined at bedside. She was resting comfortably. She shares of "I cant open my eyes." She explained that she has ocular burning. She shares of slight blurred vision. Denies associated headaches. Denies: N/V, abdominal pain. Pt not ambulating well due to history of L knee OA in immobilizer Objective - Vital Signs/Intake and Output Vital Signs (last 24 hours): Temp Pulse Resp BP Pulse Ox 98.3 F 80 18 143/95 H 97 03/21/17 08:00 03/21/17 08:00 03/21/17 08:00 03/21/17 08:00 03/21/17 08:00 - Medications Medications: Current Medications Albuterol (Ventolin Hfa 90 Mcg/Actuation (8 G)) 2 puff IH Q4H PRN PRN Reason: Shortness of Breath Aspirin (Ecotrin) 81 mg PO DAILY [facility] Clonazepam (Klonopin) 1 mg PO HS [facility] Last Admin: 03/20/17 21:38 Dose: 1 mg Escitalopram Oxalate (Lexapro) 20 mg PO HS [facility] Last Admin: 03/20/17 21:39 Dose: 20 mg Gabapentin (Neurontin) 600 mg PO [facility] Last Admin: 03/20/17 21:39 Dose: 600 mg Losartan Potassium (Cozaar) 25 mg PO DAILY [facility] Metformin HCl (Glucophage) 1,000 mg PO BID [facility] Last Admin: 03/20/17 18:41 Dose: 1,000 mg Oxybutynin Chloride (Ditropan Tab) 5 mg PO QID [facility] Trazodone HCl (Desyrel) 100 mg PO HS [facility] Last Admin: 03/20/17 21:39 Dose: 100 mg Ziprasidone (Geodon) 40 mg PO BID [facility] Last Admin: 03/20/17 18:40 Dose: 40 mg - Labs Labs: 03/21/17 04:20 03/21/17 04:20 - Constitutional Appears: No Acute Distress - Eye Exam Eye Exam: EOMI Additional comments: Pt able to open L eye with slightly blurred vision. No associated headaches. R eye was closed with clear lacrimal discharge. Bilateral ocular exam with no subconjunctival hemorrhage. EOMI present; negative for nystgmus. BL pupillary constriction/dilation. - ENT Exam ENT Exam: Mucous Membranes Moist - Respiratory Exam Respiratory Exam: Clear to Ausculation Bilateral, NORMAL BREATHING PATTERN - Cardiovascular Exam Cardiovascular Exam: REGULAR RHYTHM, +S1, +S2 - GI/Abdominal Exam GI & Abdominal Exam: Soft, Normal Bowel Sounds - Extremities Exam Additional comments: L calf tenderness L knee OA; knee brace; immobile - Neurological Exam Neurological Exam: Alert, Awake, Oriented x3 - Psychiatric Exam Psychiatric exam: Normal Affect, Normal Mood Assessment and Plan - Assessment and Plan (Free Text) Plan: Precious Lugo is a pleasant 56 yo lady with pmhx of L knee Osteoarthritis in knee Immobilizer, HTN, DM, Arthritis, Asthma, pneumonia, nephrolithiasis, incontinence, PTSD, anxiety, depression, migraines who presented to the ED with dizziness. 1) Ambulation -Unable to ambulate well -PT evaluation recommend for SARAH -History of R knee OA; knee immobilizer -Ortho consult 2) Presyncope -Dizziness for 1 month duration -r/o PE due to CT chest: negative for Pulmonary embolism or infiltrate -r/o [place] with EKG: NSR, nonspecific ST and T wave abnormality; Troponin I negative; -PT/OT eval for ambulation -ECHO today 3) Anxiety -Continue meds 4) Migraines -Continue on meds: Fiorecet 5) DM - continue meds - Monitor blood glucose 6) Neuropathy -Continue meds 7) HTN -Continue meds 8) Asthma -Continue meds 9) Depression -Continue meds 10) Ocular pruritis -Saline drops -monitor for vision changes 11) DVT prophylaxis -SCD -Venous doppler: negative Fortunato Mcgovern, PGY1
[2017-03-21] MEDS ORDERED: BSS 15 ML 15 ML IR ONE (08:47)
[2017-03-21] MEDS ORDERED: Lactated Ringer's 1,000 ML IV SCH (09:45)
[2017-03-21] MEDS: Artificial Tears Opht Soln OU PRN ×3 (10:30→23:15)
[2017-03-21] MEDS: Enoxaparin 40 mg Syringe SC SCH (10:30)
--- NOTE | 2017-03-21 10:37 | CARD ---
APPROVED REPORT EKG Measurement Heart [id number] <Conclusion> Normal sinus rhythm Nonspecific ST and T wave abnormality Abnormal ECG
--- NOTE | 2017-03-21 12:04 | CARD ---
APPROVED REPORT EXAM: Two-dimensional and M-mode echocardiogram with Doppler and color Doppler. Other Information Quality : AverageRhythm : NSR INDICATION Syncope 2D DIMENSIONS IVSd1.28 (0.7-1.1cm)LVDd4.54 (3.9-5.9cm) LVOT Diameter2.51 (1.8-2.4cm)PWd0.91 (0.7-1.1cm) IVSs1.39 (0.8-1.2cm)LVDs2.94 (2.5-4.0cm) FS (%) 35.3 %PWs1.49 (0.8-1.2cm) M-Mode DIMENSIONS Left Atrium (MM)3.41 (2.5-4.0cm)IVSd1.13 (0.7-1.1cm) Aortic Root3.44 (2.2-3.7cm)LVDd4.37 (4.0-5.6cm) Aortic Cusp Exc.2.32 (1.5-2.0cm)PWd1.16 (0.7-1.1cm) IVSs1.72 cmFS (%) 46 % LVDs2.35 (2.0-3.8cm)PWs1.92 cm Mitral Valve MV E Osegusux48.7cm/sMV DECEL [id number] A Rlhhxsxy39.6cm/s MV ZRC22sbQ/A ratio0.8MVA (PHT)2.47cm2 TDI Lateral E' Peak V10.84cm/sMedial E' Peak V5.54cm/sE/Lateral E'3.4 E/Medial E'6.6 LEFT VENTRICLE The left ventricle is normal size. There is normal left ventricular wall thickness. The left ventricular function is normal. The left ventricular ejection fraction is 65%. There is normal LV segmental wall motion. The left ventricular diastolic function is normal. No left ventricle thrombus noted on this study. There is no ventricular septal defect visualized. There is no left ventricular aneurysm. There is no mass noted in the left ventricle. RIGHT VENTRICLE The right ventricle is normal size. There is normal right ventricular wall thickness. The right ventricular systolic function is normal. ATRIA The left atrium size is normal. The right atrium size is normal. The interatrial septum is intact with no evidence for an atrial septal defect. AORTIC VALVE The aortic valve is normal in structure and function. No aortic regurgitation is present. There is no aortic valvular stenosis. There is no aortic valvular vegetation. MITRAL VALVE The mitral valve is normal in structure and function. There is no evidence of mitral valve prolapse. There is no mitral valve stenosis. There is no mitral valve regurgitation noted. TRICUSPID VALVE The tricuspid valve is normal in structure and function. There is no tricuspid valve regurgitation noted. There is no tricuspid valve prolapse or vegetation. There is no tricuspid valve stenosis. PULMONIC VALVE The pulmonary valve is normal in structure and function. There is no pulmonic valvular regurgitation. There is no pulmonic valvular stenosis. GREAT VESSELS The aortic root is normal in size. The ascending aorta is normal in size. The IVC is normal in size and collapses >50% with inspiration. PERICARDIAL EFFUSION The pericardium appears normal. There is no pleural effusion. <Conclusion> Normal Echocardiogram
--- NOTE | 2017-03-21 12:24 | US ---
HISTORY: L calf tenderness . PRIORS: None. FINDINGS: 2-D, color and duplex Doppler analysis of the lower extremity venous circulation using routine protocol from the femoral veins through the popliteal veins. Venous compressibility: Normal. Flow and augmentation patterns: Normal. Visualized veins upper third of calf: Normal. Antony cyst: None. IMPRESSION: No sonographic or Doppler evidence for DVT in left lower extremity.
[2017-03-21] MEDS: Oxycodone/Acetaminophen 5/325 mg Tab PO PRN ×2 (15:47→23:14)
--- NOTE | 2017-03-21 22:31 | CP.PCM.PCO ---
Addendum Addendum: 03/21/17 21:40 CC: Chest pain (paged at 2140) S: 56F c/o acute onset sharp pain "under her LEFT breast, in her ribcage" that caused her to catch her breath but denies nausea or diaphoresis. She reports that it lasted for 25 minutes. She denies any current SOB, chest pain or palpitations, denies any pain on deep inspiration. No vital signs available at time of examination GEN: NAD, resting comfortably PULM: CTAB, no distress/labored breathing, no w/r/r CVS: RRR, no JVD ABD: obese, soft, NT/ND EXT: no edema Intervention: EKG obtained prior to my arrival (no acute changes from baseline at admission). A/P: 56F with acute onset of sharp "ribcage" pain while sitting at edge of bed, character and quality most c/w MSK pain and has since resolved. Patient has already been cleared of PE, [place], and review of telemetry/EKG is unchanged from baseline. - c/w cont telemetry - no cardiac enzymes indicated at this time
[2017-03-22 06:14] LABS: HEMATOCRIT 34.6 % (34.0-47.0); MEAN CELL VOLUME 77.3 fl (81.0-99.0); MEAN CORPUSCULAR HEMOGLOBIN 24.7 pg (27.0-31.0); RED CELL DISTRIBUTION WIDTH 16.4 % (11.5-14.5); WHITE BLOOD COUNT 7.3 K/uL (4.8-10.8)
[2017-03-22 06:28] LABS: BLOOD UREA NITROGEN 28 mg/dl (7-17); CALCIUM 9.1 mg/dL (8.4-10.2); CARBON DIOXIDE 21 mmol/L (22-30); CHLORIDE 110 mmol/L (98-107); GFR AFRICAN-AMERICAN > 60; GLUCOSE,RANDOM 114 mg/dL (65-105); SODIUM 144 mmol/l (132-148)
[2017-03-22] MEDS: Oxycodone/Acetaminophen 5/325 mg Tab PO PRN ×2 (08:27→16:16)
[2017-03-22] MEDS: Enoxaparin 40 mg Syringe SC SCH (09:50)
[2017-03-22] MEDS: Artificial Tears Opht Soln OU PRN (09:51)
--- NOTE | 2017-03-22 12:03 | CP.PCM.PN ---
Subjective - Date & Time of Evaluation Date of Evaluation: 03/22/17 Time of Evaluation: 07:00 - Subjective Subjective: Pt seen and examined at bedside she shares of L knee pain. Denies: COHEN/blurred vision/N/V/CP/SOB. Pending SARAH transfer per PT recommendations Objective - Vital Signs/Intake and Output Vital Signs (last 24 hours): Temp Pulse Resp BP Pulse Ox 98.5 F 77 18 123/82 96 03/22/17 08:00 03/22/17 09:00 03/22/17 08:00 03/22/17 08:34 03/22/17 08:00 Intake and Output: 03/22/17 03/22/17 06:59 18:59 Intake Total 1999 Output Total 0 Balance 1999 - Medications Medications: Current Medications Albuterol (Ventolin Hfa 90 Mcg/Actuation (8 G)) 2 puff IH Q4H PRN PRN Reason: Shortness of Breath Artificial Tears (Artificial Tears) 2 drop OU Q4 PRN PRN Reason: Dry eyes Last Admin: 03/22/17 09:51 Dose: 2 drop Aspirin (Ecotrin) 81 mg PO DAILY [facility] Last Admin: 03/22/17 08:35 Dose: 81 mg Clonazepam (Klonopin) 1 mg PO HS [facility] Last Admin: 03/21/17 21:23 Dose: 1 mg Enoxaparin Sodium (Lovenox) 40 mg SC DAILY [facility] PRN Reason: Protocol Last Admin: 03/22/17 09:50 Dose: 40 mg Escitalopram Oxalate (Lexapro) 20 mg PO HS [facility] Last Admin: 03/21/17 21:23 Dose: 20 mg Gabapentin (Neurontin) 600 mg PO HS [facility] Last Admin: 03/21/17 21:23 Dose: 600 mg Losartan Potassium (Cozaar) 25 mg PO DAILY [facility] Last Admin: 03/22/17 08:34 Dose: 25 mg Meclizine HCl (Antivert) 25 mg PO BID PRN PRN Reason: Dizziness Last Admin: 03/22/17 09:52 Dose: 25 mg Metformin HCl (Glucophage) 1,000 mg PO BID [facility] Last Admin: 03/22/17 08:35 Dose: 1,000 mg Oxybutynin Chloride (Ditropan Tab) 5 mg PO QID [facility] Last Admin: 03/22/17 08:35 Dose: 5 mg Oxycodone/Acetaminophen (Percocet 5/325 Mg Tab) 1 tab PO Q8 PRN PRN Reason: Pain, moderate (4-7) Stop: 03/24/17 17:01 Last Admin: 03/22/17 08:27 Dose: 1 tab Trazodone HCl (Desyrel) 100 mg PO HS [facility] Last Admin: 03/21/17 21:23 Dose: 100 mg Ziprasidone (Geodon) 40 mg PO BID [facility] Last Admin: 03/22/17 08:35 Dose: 40 mg - Labs Labs: 03/22/17 05:15 03/22/17 05:15 - Eye Exam Eye Exam: EOMI, Normal appearance. absent: Nystagmus, Periorbital swelling, Scleral icterus - Respiratory Exam Respiratory Exam: Clear to Ausculation Bilateral, NORMAL BREATHING PATTERN - Cardiovascular Exam Cardiovascular Exam: REGULAR RHYTHM, +S1, +S2 - GI/Abdominal Exam GI & Abdominal Exam: Soft, Normal Bowel Sounds - Extremities Exam Extremities Exam: Tenderness Additional comments: L knee tenderness. Able to help extend and flex at knee but with some pain/ hesitancy. Assessment and Plan - Assessment and Plan (Free Text) Plan: Precious Lugo is a pleasant 56 yo lady with pmhx of L knee Osteoarthritis in knee Immobilizer, HTN, DM, Arthritis, Asthma, pneumonia, nephrolithiasis, incontinence, PTSD, anxiety, depression, migraines who presented to the ED with dizziness. 1) Ambulation -Unable to ambulate well -PT evaluation recommend for SARAH -History of R knee OA; knee immobilizer -Ortho consulted and recommended OP f/u -Social work consulted and pending SARAH possibly today. 2) Presyncope -Dizziness for 1 month duration -r/o PE due to CT chest: negative for Pulmonary embolism or infiltrate -r/o [place] with EKG: NSR, nonspecific ST and T wave abnormality; Troponin I negative; -PT/OT eval: recommend SARAH -ECHO: normal echo 03/20/2017 3) Anxiety -Continue meds 4) Migraines -Continue on meds: Fiorecet 5) DM - continue meds - Monitor blood glucose 6) Neuropathy -Continue meds 7) HTN -Continue meds 8) Asthma -Continue meds 9) Depression -Continue meds 10) Ocular pruritis -Saline drops -monitor for vision changes 11) DVT prophylaxis -SCD -Venous doppler: negative Fortunato Mcgovern, PGY1
--- NOTE | 2017-03-22 12:49 | RAD ---
PROCEDURE: Left Knee Radiographs. HISTORY: Pain. COMPARISON: Left knee radiographs 02/18/2017. FINDINGS: BONES: Advanced tricompartmental osteoarthritis is appreciated without acute fracture or dislocation appreciated this time. No destructive bony lesion appreciable. JOINTS: Marked joint space narrowing, osteophyte development and cortical sclerosis appreciated in all 3 joint compartments though joint space narrowing is least at the lateral femorotibial compartment in the images submitted. No significant interval change. JOINT EFFUSION: A small suprapatellar bursa effusions identified. OTHER FINDINGS: None. IMPRESSION: 1. No acute fracture dislocation/subluxation. 2. Advanced degenerative joint disease as discussed above within small interval suprasellar bursa effusion now identified. Exam otherwise appears stable.
--- NOTE | 2017-03-22 13:08 | CP.PCM.DIS ---
Provider - Provider Date of Admission: 03/21/17 19:46 Attending physician: Jessy Medina MD Time Spent in preparation of Discharge (in minutes): 20 Hospital Course - Lab Results Lab Results: Most Recent Lab Values WBC 7.3 K/uL (4.8-10.8) 03/22/17 05:15 RBC 4.48 Mil/uL (3.80-5.20) 03/22/17 05:15 Hgb 11.1 g/dL (12.0-16.0) L 03/22/17 05:15 Hct 34.6 % (34.0-47.0) 03/22/17 05:15 MCV 77.3 fl (81.0-99.0) L 03/22/17 05:15 MCH 24.7 pg (27.0-31.0) L 03/22/17 05:15 MCHC 32.0 g/dL (33.0-37.0) L 03/22/17 05:15 RDW 16.4 % (11.5-14.5) H 03/22/17 05:15 Plt Count 183 K/uL (130-400) 03/22/17 05:15 MPV 9.2 fl (7.2-11.7) 03/20/17 11:06 Neut % (Auto) 70.7 % (50.0-75.0) 03/20/17 11:06 Lymph % (Auto) 21.2 % (20.0-40.0) 03/20/17 11:06 [place] % (Auto) 5.0 % (0.0-10.0) 03/20/17 11:06 Eos % (Auto) 2.2 % (0.0-4.0) 03/20/17 11:06 Baso % (Auto) 0.9 % (0.0-2.0) 03/20/17 11:06 Neut # 5.7 K/uL (1.8-7.0) 03/20/17 11:06 Lymph # 1.7 K/uL (1.0-4.3) 03/20/17 11:06 [place] # 0.4 K/uL (0.0-0.8) 03/20/17 11:06 Eos # 0.2 K/uL (0.0-0.7) 03/20/17 11:06 Baso # 0.1 K/uL (0.0-0.2) 03/20/17 11:06 D-Dimer, Quantitative 498 ng/mlDDU (0-230) H 03/20/17 11:06 Sodium 144 mmol/l (132-148) 03/22/17 05:15 Potassium 4.0 MMOL/L (3.6-5.0) 03/22/17 05:15 Chloride 110 mmol/L (98-107) H 03/22/17 05:15 Carbon Dioxide 21 mmol/L (22-30) L 03/22/17 05:15 Anion Gap 17 (10-20) 03/22/17 05:15 BUN 28 mg/dl (7-17) H 03/22/17 05:15 Creatinine 1.1 mg/dL (0.7-1.2) 03/22/17 05:15 Est GFR ( Amer) > 60 03/22/17 05:15 Est GFR (Non-Af Amer) 51 03/22/17 05:15 POC Glucose (mg/dL) 117 mg/dL (65-110) H 03/22/17 06:18 Random Glucose 114 mg/dL (65-105) H 03/22/17 05:15 Calcium 9.1 mg/dL (8.4-10.2) 03/22/17 05:15 Total Bilirubin 0.4 mg/dl (0.2-1.3) 03/21/17 04:20 AST 21 U/L (14-36) 03/21/17 04:20 ALT 20 U/L (9-52) 03/21/17 04:20 Alkaline Phosphatase 58 U/L (38-126) 03/21/17 04:20 Troponin I < 0.0120 ng/mL (0.00-0.120) 03/20/17 11:06 NT-Pro-B Natriuret Pep 688 pg/ml (0-900) 03/20/17 11:06 Total Protein 6.1 G/DL (6.3-8.2) L 03/21/17 04:20 Albumin 3.4 g/dL (3.5-5.0) L 03/21/17 04:20 Globulin 2.7 gm/dL (2.2-3.9) 03/21/17 04:20 Albumin/Globulin Ratio 1.3 (1.0-2.1) 03/21/17 04:20 TSH 3rd Generation 3.95 mIU/ML (0.46-4.68) 03/20/17 11:06 - Hospital Course Hospital Course: Precious Lugo is a pleasant 56 yo lady with pmhx of L knee Osteoarthritis in knee Immobilizer, HTN, DM, Arthritis, Asthma, pneumonia, nephrolithiasis, incontinence, PTSD, anxiety, depression, migraines who presented to the ED with dizziness/tachypnia. Pulmonary Embolus r/o with CT chest, [place] r.o with ekg and neg trop; normal echo; PT/OT eval recommended SARAH due to difficulty ambulating; Discharge to home as SARAH was not approved by insurance. Discharge Exam - Head Exam Head Exam: ATRAUMATIC, NORMAL INSPECTION, NORMOCEPHALIC Discharge Plan - Discharge Medications Prescriptions: Albuterol HFA [Ventolin HFA 90 mcg/actuation (8 g)] 2 puff IH Q4H PRN #1 inhaler PRN Reason: Shortness Of Breath Aspirin [Ecotrin] 81 mg PO DAILY #1 tabec Calcium/Vitamin D [Oyster Shell Calcium/Vitamin D 500 mg-200 IU] 1 tab PO DAILY #1 tab clonazePAM [Klonopin] 1 mg PO HS #1 tab Escitalopram [Lexapro] 20 mg PO HS #1 tab Gabapentin [Neurontin] 600 mg PO HS #1 tab Losartan [Cozaar] 25 mg PO DAILY #1 tab MetFORMIN [glucoPHAGE] 1,000 mg PO BID #1 tab Multivitamin [Multi-Vitamin Daily] 1 tab PO DAILY #1 tablet [place]-3 Fatty Acids/Fish Oil [Fish Oil 1,000 mg Capsule] 1,000 mg PO BID #1 capsule Omeprazole 20 mg PO BID #1 capsule. Oxybutynin XL [Ditropan XL] 15 mg PO Q12H #[address] ter Simvastatin 20 mg PO QPM #1 tablet traZODone [Desyrel] 100 mg PO HS #1 tab Ziprasidone [Geodon] 40 mg PO BID #1 cap - Follow Up Plan Condition: FAIR Disposition: HOME/ ROUTINE Instructions: Syncope (DC) Additional Instructions: patient stable to receive further therapy in [facility].
--- NOTE | 2017-03-22 15:07 | PQF GENQUE ---
Dr. Medina, Etiology of dizziness if known? or please document etiology unknown OR: Unable to determine This form is a permanent part of the medical record Clarification of your documentation is requested to better reflect the severity of illness and intensity of treatment of your patient. Indicators present [] Specify: [] [] Specify: [] [] Specify: [] [] Specify: [] Location in the medical record that reflects the above clinical findings: [] Treatment Provided: [] PHYSICIAN'S RESPONSE Based on your medical judgment of the clinical indicators outlined above please clarify the following: [] Practitioner response [] If unable to determine, please check the box, sign and date. Present On Admission (POA) Indicator: [] Present at the time of admission [] Not present at the time of admission [] Clinically Undetermined In responding to this query, please exercise your independent professional judgment. The fact that a question is asked does not imply that any particular answer is desired or expected. Thank you for your clarification on this documentation. If you have any questions please call. * Thank you, Becca Lott RN ext. #[phone]: Palmira Barriga RN MTDD
[2017-03-22 17:52] VITALS: BP 119/71; PULSE 86; RESP 16; TEMP 97.8; O2SAT 96
== END 2017-03-22 19:50 | disposition home or self-care (01) | DRG 65 ==
LOC: H.ER 10:16 → H.ERHOLD 15:19 → H.TEL 17:18 → OBSVTOIN 03-21 19:46
PROVIDERS: ADMIT Family Medicine Geriatric Medicine; ATTEND Family Medicine Geriatric Medicine
PROC: 3E0234Z Introduction of Serum, Toxoid and Vaccine into Muscle, Percutaneous Approach (ICD-10-PCS; principal; 2017-03-21)
DX: R42 Dizziness and giddiness (principal); E11.22 Type 2 diabetes mellitus with diabetic chronic kidney disease; N18.9 Chronic kidney disease, unspecified; Z23 Encounter for immunization; Z88.3 Allergy status to other anti-infective agents; Z88.5 Allergy status to narcotic agent; I12.9 Hypertensive chronic kidney disease with stage 1 through stage 4 chronic kidney disease, or unspecified chronic kidney disease; M17.12 Unilateral primary osteoarthritis, left knee; J45.909 Unspecified asthma, uncomplicated; E78.00 Pure hypercholesterolemia, unspecified; G62.9 Polyneuropathy, unspecified; E66.9 Obesity, unspecified; Z68.41 Body mass index [BMI] 40.0-44.9, adult; G43.909 Migraine, unspecified, not intractable, without status migrainosus; F41.9 Anxiety disorder, unspecified; F32.9 Major depressive disorder, single episode, unspecified; F43.10 Post-traumatic stress disorder, unspecified; R06.00 Dyspnea, unspecified; L29.8 Other pruritus

== ENCOUNTER 2017-09-01 14:10 | Emergency (ER) | payer MEDICAID ==
[2017-09-01 14:11] VITALS: BMI 43.8
[2017-09-01 14:15] VITALS: BP 119/75; PULSE 80; RESP 18; TEMP 98; O2SAT 94
--- NOTE | 2017-09-01 14:51 | ED PDOC ---
Syncope/Near Syncope/Dizziness Time Seen by Provider: 09/01/17 14:21 Chief Complaint (Nursing): Dizziness/Lightheaded History Per: Patient History/Exam Limitations: no limitations Onset/Duration Of Symptoms: Gradual (since approx 10 am) Current Symptoms Are (Timing): Still Present Activity At Onset Of Symptoms: Change In Head Position Associated Symptoms Preceding Syncopal Episode: No Predromal Symptoms (Sudden Onset) Seizure Or Post-ictal Symptoms: None Fall Associated With With Symptoms: No Severity: Mild Additional History Per: Patient Additional Complaint(s): pt states dizziness worse with head movement started at approx 1030 am today after pt awoke at 10 am, similar to hospital admission approx 6 mo ago with a neg workup no bv/dv/n/t/w Past Medical History Reviewed: Historical Data, Nursing Documentation, Vital Signs Vital Signs: Last Vital Signs Temp 98.0 F 09/01/17 14:14 Pulse 80 09/01/17 14:14 Resp 18 09/01/17 14:14 BP 119/75 09/01/17 14:14 Pulse Ox 94 L 09/01/17 14:14 - Medical History PMH: Anxiety, Arthritis, Asthma, Depression, Diabetes, HTN, Hypercholesterolemia , Kidney Stones (stent placement), Migraine, Pneumonia, Post Traumatic Stress Disorder, Chronic Kidney Disease Denies: HIV - Family History Family History: States: Unknown Family Hx - Living Arrangements Living Arrangements: With Family - Social History Drugs: Denies - Immunization History Hx Tetanus Toxoid Vaccination: No Hx Influenza Vaccination: Yes Hx Pneumococcal Vaccination: Yes - Home Medications Home Medications: Ambulatory Orders Medication Instructions Recorded Albuterol HFA [Ventolin HFA 90 2 puff IH Q4H PRN #1 inhaler 03/22/17 mcg/actuation (8 g)] Aspirin [Ecotrin] 81 mg PO DAILY #1 tabec 03/22/17 Calcium/Vitamin D [Oyster Shell 1 tab PO DAILY #1 tab 03/22/17 Calcium/Vitamin D 500 mg-200 IU] Escitalopram [Lexapro] 20 mg PO HS #1 tab 03/22/17 Gabapentin [Neurontin] 600 mg PO HS #1 tab 03/22/17 Losartan [Cozaar] 25 mg PO DAILY #1 tab 03/22/17 MetFORMIN [glucoPHAGE] 1,000 mg PO BID #1 tab 03/22/17 Multivitamin [Multi-Vitamin Daily] 1 tab PO DAILY #1 tablet 03/22/17 [place]-3 Fatty Acids/Fish Oil [Fish 1,000 mg PO BID #1 capsule 03/22/17 Oil 1,000 mg Capsule] Omeprazole 20 mg PO BID #1 capsule. 03/22/17 Oxybutynin XL [Ditropan XL] 15 mg PO Q12H #1 ter 03/22/17 Simvastatin 20 mg PO QPM #1 tablet 03/22/17 Ziprasidone [Geodon Cap] 40 mg PO BID #1 cap 03/22/17 clonazePAM [Klonopin] 1 mg PO HS #1 tab 03/22/17 traZODone [Desyrel] 100 mg PO HS #1 tab 03/22/17 Meclizine [Meclizine*] 25 mg PO Q6 PRN #20 tab 09/01/17 - Allergies Allergies/Adverse Reactions: Allergies Allergy/AdvReac Type Severity Reaction Status Date / Time ciprofloxacin [From Cipro] Allergy RASH Verified 02/18/17 02:48 ciprofloxacin HCl Allergy RASH Verified 02/18/17 02:48 [From Cipro] hydromorphone HCl Allergy RASH Verified 02/18/17 02:48 [From Dilaudid] lisinopril Allergy RASH Verified 02/18/17 02:48 morphine Allergy ITCHING Verified 02/18/17 02:48 nitroglycerin Allergy RASH Verified 02/18/17 02:48 Penicillins Allergy RASH Verified 02/18/17 02:48 Review of Systems ROS Statement: Except As Marked, All Systems Reviewed And Found Negative Constitutional: Negative for: Fever, Chills Cardiovascular: Negative for: Chest Pain, Palpitations Respiratory: Negative for: Cough, Shortness of Breath Gastrointestinal: Negative for: Nausea, Vomiting Musculoskeletal: Negative for: Neck Pain Neurological: Positive for: Dizziness. Negative for: Weakness, Numbness, Incoordination, Change in Speech, Confusion, Seizures, Altered Mental Status, Headache Physical Exam - Reviewed Nursing Documentation Reviewed: Yes Vital Signs Reviewed: Yes - Physical Exam Appears: Positive for: Uncomfortable Head Exam: Positive for: ATRAUMATIC, NORMAL INSPECTION, NORMOCEPHALIC Eye Exam: Positive for: Normal appearance, EOMI, PERRL Neck: Positive for: Normal, Painless ROM, Supple. Negative for: Decreased ROM, Limited ROM, Trachea Midline, Pain On Movement Of Neck Cardiovascular/Chest: Positive for: Regular Rate, Rhythm. Negative for: Chest Non Tender, Edema, Gallop, Murmur, Bradycardia, Tachycardia, Irregularly Irregular Respiratory: Positive for: Normal Breath Sounds. Negative for: Decreased Breath Sounds, Accessory Muscle Use, Rales, Rhonchi, Stridor, Wheezing, Respiratory Distress Pulses-Radial (L): 2+ Pulses-Radial (R): 2+ Gastrointestinal/Abdominal: Positive for: Normal Exam, Bowel Sounds, Soft. Negative for: Tenderness Back: Positive for: Normal Inspection. Negative for: L CVA Tenderness, R CVA Tenderness, Vertebral Tenderness Extremity: Positive for: Normal ROM. Negative for: Tenderness, Pedal Edema, Calf Tenderness, Deformity, Swelling Neurologic/Psych: Positive for: Alert, counseling center director II-XII, Oriented, Mood/Affect (flat) , Cerebellar Tests (ftn nml), Other (vf intact). Negative for: Motor/Sensory Deficits, Aphasia, Facial Droop - Laboratory Results Result Diagrams: 09/01/17 15:19 09/01/17 15:19 - ECG ECG: Positive for: Interpreted By Me ECG Rhythm: Positive for: Normal QRS, Normal ST Segment, Sinus Rhythm (69). Negative for: ST/T Changes Interpretation Of Abn EKG: no evidence of ischemia O2 Sat by Pulse Oximetry: 94 Pulse Ox Interpretation: Normal - Progress ED Course And Treament: PROCEDURE: CT HEAD WITHOUT CONTRAST. HISTORY: Dizziness. COMPARISON: Comparison made with CT scan brain dated 05/21/2018. TECHNIQUE: Axial computed tomography images were obtained through the head/brain without intravenous contrast. Radiation dose: Total exam DLP = 967.54 mGy-cm. This CT exam was performed using one or more of the following dose reduction techniques: Automated exposure control, adjustment of the mA and/or kV according to patient size, and/or use of iterative reconstruction technique. FINDINGS: HEMORRHAGE: No acute parenchymal, subarachnoid nor extra-axial hemorrhage. BRAIN: Mild diffuse/ confluent chronic periventricular white matter ischemic changes seen extending peripherally into the deep and subcortical white matter both cerebral hemispheres. Mild -moderate the the the the heidy generalized volume loss VENTRICLES: No obstructive hydrocephalus. CALVARIUM: No acute calvarial fractures PARANASAL SINUSES: Unremarkable as visualized. No significant inflammatory changes. MASTOID AIR CELLS: Unremarkable as visualized. No inflammatory changes. OTHER FINDINGS: None. IMPRESSION: No acute intracranial hemorrhage. Mild chronic white matter ischemic changes. Mild moderate generalized volume loss. Re-evaluation Time: 17:27 Condition: Re-examined, Improved Medical Decision Making Medical Decision Making: sx markedly improved advise close f/u with pmd, pt tolerated po here pt has chronic right hip pain resolved with ibuprofen. pt leaves ambulatory and in steady gait. Disposition - Clinical Impression Clinical Impression: Vertigo - Patient ED Disposition Is Patient to be Admitted: No Counseled Patient/Family Regarding: Studies Performed, Diagnosis, Need For Followup, Rx Given - Disposition Referrals: [facility] [Outside] (2 to 3 days) Disposition: Routine/Home Disposition Time: 18:00 Condition: GOOD Prescriptions: Meclizine [Meclizine*] 25 mg PO Q6 PRN #20 tab PRN Reason: Dizziness Instructions: Vertigo (a Type of Dizziness) Forms: [employer] ([place]er)
[2017-09-01 15:23] LABS: BASO # 0.1 K/uL (0.0-0.2); BASO % 1.2 % (0.0-2.0); EOS # 0.4 K/uL (0.0-0.7); EOS % 4.9 % (0.0-4.0); HEMOGLOBIN 11.9 g/dL (12.0-16.0); LYMPH # 2.7 K/uL (1.0-4.3); LYMPH % 30.7 % (20.0-40.0); MEAN CELL VOLUME 75.2 fl (81.0-99.0); MEAN CORPUSCULAR HEMOGLOBIN 23.8 pg (27.0-31.0); MEAN CORPUSCULAR HGB CONC 31.7 g/dL (33.0-37.0); MEAN PLATELET VOLUME 8.9 fl (7.2-11.7); MONO # 0.6 K/uL (0.0-0.8); MONO % 6.9 % (0.0-10.0); NEUT # 4.9 K/uL (1.8-7.0); NEUT % 56.3 % (50.0-75.0); RBC 5.01 Mil/uL (3.80-5.20); RED CELL DISTRIBUTION WIDTH 17.6 % (11.5-14.5); WHITE BLOOD COUNT 8.8 K/uL (4.8-10.8)
[2017-09-01 15:36] LABS: CALCIUM 9.3 mg/dL (8.4-10.2); GFR AFRICAN-AMERICAN 56; GFR NON-AFRICAN AMERICAN 46
[2017-09-01 15:37] LABS: PROTHROMBIN TIME 10.5 Seconds (9.8-13.1)
[2017-09-01 15:46] LABS: SQUAMOUS EPITHIAL < 1 /hpf (0-5); URINE BILIRUBIN NEGATIVE (NEGATIVE); URINE BLOOD NEGATIVE (NEGATIVE); URINE CLARITY CLEAR (Clear); URINE COLOR YELLOW (YELLOW); URINE GLUCOSE (UA) NEG (Normal); URINE LEUKOCYTE ESTERASE TRACE Leu/uL (Negative); URINE PROTEIN NEGATIVE (NEGATIVE); URINE UROBILINOGEN 0.2-1.0 mg/dL (0.2-1.0)
[2017-09-01 15:54] LABS: ALBUMIN 3.5 g/dL (3.5-5.0); ALT/SGPT 22 U/L (9-52); AST/SGOT 28 U/L (14-36); BLOOD UREA NITROGEN 28 mg/dl (7-17)
--- NOTE | 2017-09-01 16:16 | CT ---
PROCEDURE: CT HEAD WITHOUT CONTRAST. HISTORY: Dizziness. COMPARISON: Comparison made with CT scan brain dated 05/21/2018. TECHNIQUE: Axial computed tomography images were obtained through the head/brain without intravenous contrast. Radiation dose: Total exam DLP = 967.54 mGy-cm. This CT exam was performed using one or more of the following dose reduction techniques: Automated exposure control, adjustment of the mA and/or kV according to patient size, and/or use of iterative reconstruction technique. FINDINGS: HEMORRHAGE: No acute parenchymal, subarachnoid nor extra-axial hemorrhage. BRAIN: Mild diffuse/ confluent chronic periventricular white matter ischemic changes seen extending peripherally into the deep and subcortical white matter both cerebral hemispheres. Mild -moderate the the the the heidy generalized volume loss VENTRICLES: No obstructive hydrocephalus. CALVARIUM: No acute calvarial fractures PARANASAL SINUSES: Unremarkable as visualized. No significant inflammatory changes. MASTOID AIR CELLS: Unremarkable as visualized. No inflammatory changes. OTHER FINDINGS: None. IMPRESSION: No acute intracranial hemorrhage. Mild chronic white matter ischemic changes. Mild moderate generalized volume loss.
[2017-09-01] MEDS ORDERED: Sodium Chloride 0.9% 500 ML IV ONE (18:05)
[2017-09-01 18:11] LABS: OPIATES, UR NEGATIVE (NEGATIVE)
[2017-09-01 18:14] LABS: BARBITURATES, UR NEGATIVE (NEGATIVE); BENZODIAZEPINES, UR NEGATIVE (NEGATIVE); PHENCYCLIDINE, UR NEGATIVE (NEGATIVE)
--- NOTE | 2017-09-02 12:46 | CARD ---
APPROVED REPORT EKG Measurement Heart [id number] [id number] <Conclusion> Normal sinus rhythm Nonspecific ST abnormality Abnormal ECG base artefact is present
== END 2017-09-01 19:30 | disposition home or self-care (01) ==
LOC: H.ER 14:10
DX: R42 Dizziness and giddiness (principal); Z86.59 Personal history of other mental and behavioral disorders; I12.9 Hypertensive chronic kidney disease with stage 1 through stage 4 chronic kidney disease, or unspecified chronic kidney disease; Z88.0 Allergy status to penicillin; Z87.442 Personal history of urinary calculi; J45.909 Unspecified asthma, uncomplicated; N18.9 Chronic kidney disease, unspecified; Z79.82 Long term (current) use of aspirin; Z79.84 Long term (current) use of oral hypoglycemic drugs
CPT/HCPCS: 70450; 80053; 80324; 80345; 80346; 80349; 80353; 80358; 80361; 81003; 83735; 83992; 84100; 84484; 85025; 85610; 85730; 93005; 99285; J7040

== ENCOUNTER 2017-09-20 20:07 | Observation (INO) | payer MEDICAID ==
[2017-09-20 20:07] VITALS: BMI 43.8
[2017-09-20] MEDS ORDERED: Naproxen 500 MG TAB PO STA (21:14)
--- NOTE | 2017-09-20 22:11 | ED PDOC ---
Upper Extremity Pain/Injury Time Seen by Provider: 09/20/17 20:57 Chief Complaint (Nursing): Finger,Hand,&Wrist Past Medical History Vital Signs: Last Vital Signs Temp 98.1 F 09/20/17 20:34 Pulse 94 H 09/20/17 20:34 Resp 16 09/20/17 20:34 BP 141/87 09/20/17 20:34 Pulse Ox 96 09/20/17 20:34 - Medical History PMH: Anxiety, Arthritis, Asthma, Depression, Diabetes, HTN, Hypercholesterolemia , Kidney Stones (stent placement), Migraine, Pneumonia, Post Traumatic Stress Disorder, Chronic Kidney Disease Denies: HIV - Family History Family History: States: Unknown Family Hx - Immunization History Hx Tetanus Toxoid Vaccination: No Hx Influenza Vaccination: Yes Hx Pneumococcal Vaccination: Yes - Home Medications Home Medications: Ambulatory Orders Medication Instructions Recorded Albuterol HFA [Ventolin HFA 90 2 puff IH Q4H PRN #1 inhaler 03/22/17 mcg/actuation (8 g)] Aspirin [Ecotrin] 81 mg PO DAILY #1 tabec 03/22/17 Calcium/Vitamin D [Oyster Shell 1 tab PO DAILY #1 tab 03/22/17 Calcium/Vitamin D 500 mg-200 IU] Escitalopram [Lexapro] 20 mg PO HS #1 tab 03/22/17 Gabapentin [Neurontin] 600 mg PO HS #1 tab 03/22/17 Losartan [Cozaar] 25 mg PO DAILY #1 tab 03/22/17 MetFORMIN [glucoPHAGE] 1,000 mg PO BID #1 tab 03/22/17 Multivitamin [Multi-Vitamin Daily] 1 tab PO DAILY #1 tablet 03/22/17 [place]-3 Fatty Acids/Fish Oil [Fish 1,000 mg PO BID #1 capsule 03/22/17 Oil 1,000 mg Capsule] Omeprazole 20 mg PO BID #1 capsule. 03/22/17 Oxybutynin XL [Ditropan XL] 15 mg PO Q12H #1 ter 03/22/17 Simvastatin 20 mg PO QPM #1 tablet 03/22/17 Ziprasidone [Geodon Cap] 40 mg PO BID #1 cap 03/22/17 clonazePAM [Klonopin] 1 mg PO HS #1 tab 03/22/17 traZODone [Desyrel] 100 mg PO HS #1 tab 03/22/17 Meclizine [Meclizine*] 25 mg PO Q6 PRN #20 tab 09/01/17 - Allergies Allergies/Adverse Reactions: Allergies Allergy/AdvReac Type Severity Reaction Status Date / Time ciprofloxacin [From Cipro] Allergy RASH Verified 02/18/17 02:48 ciprofloxacin HCl Allergy RASH Verified 02/18/17 02:48 [From Cipro] hydromorphone HCl Allergy RASH Verified 02/18/17 02:48 [From Dilaudid] lisinopril Allergy RASH Verified 02/18/17 02:48 morphine Allergy ITCHING Verified 02/18/17 02:48 nitroglycerin Allergy RASH Verified 02/18/17 02:48 Penicillins Allergy RASH Verified 02/18/17 02:48 - Laboratory Results Result Diagrams: 09/20/17 22:00 - ECG O2 Sat by Pulse Oximetry: 96 Medical Decision Making Medical Decision Makin - Pt reports nausea and dizziness. PT states she took meclizine for her vertigo 30 minutes ago. PT did not reportts dizziness on initial exam. Pt states she normally does not get nausea with her vertigo. EKG, vitals and accuCheck ordered. Shortly after patient reports sharp left sided chest pain. Labs, aspirin ordered. Phyllis, RN did not yet given naproxen. Discussed with Phyllis that is is canclled however unable to cancel in the computer. Discussed case with Supervisor [employer] Kiln Dr. Serna. Disposition - Clinical Impression Clinical Impression: Chest pain, Wrist pain - Patient ED Disposition Is Patient to be Admitted: No - Disposition Disposition: Routine/Home Disposition Time: 22:12 Condition: STABLE - Pt Status Changed To: Hospital Disposition Of: Observation - Admit Certification Admit to Inpatient:: Telemetry - POA Present On Arrival: None
[2017-09-20 22:40] LABS: BASO # 0.1 K/uL (0.0-0.2); BASO % 0.7 % (0.0-2.0); EOS # 0.4 K/uL (0.0-0.7); HEMOGLOBIN 11.7 g/dL (12.0-16.0); LYMPH # 2.7 K/uL (1.0-4.3); LYMPH % 25.8 % (20.0-40.0); MEAN CELL VOLUME 74.1 fl (81.0-99.0); MEAN CORPUSCULAR HEMOGLOBIN 24.3 pg (27.0-31.0); MEAN CORPUSCULAR HGB CONC 32.7 g/dL (33.0-37.0); MONO # 0.7 K/uL (0.0-0.8); MONO % 6.3 % (0.0-10.0); NEUT # 6.5 K/uL (1.8-7.0); NEUT % 63.2 % (50.0-75.0); NRBC % 0.1 % (0.0-0.0); RBC 4.83 Mil/uL (3.80-5.20); RED CELL DISTRIBUTION WIDTH 17.7 % (11.5-14.5); WHITE BLOOD COUNT 10.3 K/uL (4.8-10.8)
[2017-09-20 22:52] LABS: ALB/GLOB RATIO 1.3 (1.0-2.1); ALBUMIN 3.7 g/dL (3.5-5.0); ALT/SGPT 33 U/L (9-52); AST/SGOT 25 U/L (14-36); BLOOD UREA NITROGEN 35 mg/dl (7-17); CALCIUM 9.9 mg/dL (8.4-10.2); GFR AFRICAN-AMERICAN > 60; GFR NON-AFRICAN AMERICAN 51
[2017-09-20 23:04] LABS: PARTIAL THROMBOPLASTIN TIME 30.1 Seconds (25.6-37.1)
[2017-09-20 23:14] LABS: INR 0.9 (0.9-1.2); PROTHROMBIN TIME 10.3 Seconds (9.8-13.1)
[2017-09-20] MEDS ORDERED: Albuterol HFA 90 mcg/actuation (8 g) IH PRN (23:21)
[2017-09-20] MEDS ORDERED: Omega-3-Acid Ethyl Esters 1 GM Cap PO SCH (23:30)
[2017-09-20] MEDS ORDERED: Dextrose 50% SYRINGE Inj (50 ml) IV PRN (23:38)
[2017-09-20] MEDS ORDERED: Glucagon Recombinant 1 mg Inj IM PRN (23:38)
[2017-09-20] MEDS ORDERED: Sodium Chloride 0.9% 500 ML IV SCH (23:45)
--- NOTE | 2017-09-20 23:55 | CP.PCM.HP ---
History of Present Illness - History of Present Illness History of Present Illness: 56 yo female with extensive PMHx including HTN, DM type 2, Arthritis, Asthma, nephrolithiasis, urinary incontinence, PTSD, anxiety, depression, migraines who presented to the ED complaining of right wrist pain since yesterday morning ( ), constant, radiating to her shoulder, increasing in intensity , associated with swelling, and numbness sensation of her wrist. Patient was in ER being evaluated for her wrist pain when she started feeling dizzy, nauseated , and complaining of a left sided chest pain, the pain started suddenly behind her shoulder blade, and radiating to her rib cage, below her left breast, described as sharp-pressure like pain, lasted x almost one minute, resolved without intervention. Patient reports 3 episodes of almost 1 minute duration each of them before she took aspirin 325 mg PO once in ER. When patient was seen in ER was pain free, but after she walked back from the restroom she was c/ o similar chest pain, and was aggravated with movements and palpation. PMD: Dr. Myers Full Code Allerg: multiple allergies recorded in [facility] PMHx: HTN, DM, Arthritis, Asthma, pneumonia, nephrolithiasis, incontinence, PTSD , anxiety, depression, migraines PSurgHx: Hyterectomy, Lipoma, Hand, Foot surgeries FHx: Father passed from AL; Mother passed from cerebral hemorrhage; Grandmother : stroke; PSocHx: Denies smoking, alcohol and illicit drugs Meds: as per [facility] records ER course: VS: unremarkable on admission PE: tenderness to palpation of left rib cage below left breast. Right wrist: mild swelling, and tender to palpation. Labs: CBC, CMP, coag panel reviewed EKG : NSR, no acute ST-T waves changes noted when compared with prior EKGs right wrist x ray Tx: Aspirin 325 mg PO Present on Admission - Present on Admission Any Indicators Present on Admission: No History of DVT/PE: No History of Uncontrolled Diabetes: No Urinary Catheter: No Decubitus Ulcer Present: No Review of Systems - Review of Systems All systems: reviewed and no additional remarkable complaints except (as per HPI ) Past Patient History - Infectious Disease Hx of Infectious Diseases: None - Past Medical History & Family History Past Medical History?: Yes - Past Social History Smoking Status: Never Smoked - CARDIAC Hx Hypercholesterolemia: Yes Hx Hypertension: Yes - PULMONARY Hx Asthma: Yes Hx Pneumonia: Yes - NEUROLOGICAL Hx Migraine: Yes - HEENT Hx HEENT Problems: No - RENAL Hx Chronic Kidney Disease: Yes Hx Kidney Stones: Yes (stent placement) - ENDOCRINE/METABOLIC Hx Diabetes Mellitus Type 2: Yes - HEMATOLOGICAL/ONCOLOGICAL Hx Human Immunodeficiency Virus (HIV): No - INTEGUMENTARY Hx Dermatological Problems: No - MUSCULOSKELETAL/RHEUMATOLOGICAL Hx Arthritis: Yes - GASTROINTESTINAL Hx Gastrointestinal Disorders: Yes Hx Gastroesophageal Reflux: Yes Hx Nausea: Yes Hx Vomiting: Yes - GENITOURINARY/GYNECOLOGICAL Hx Genitourinary Disorders: Yes Hx Incontinence: Yes Hx Urinary Tract Infection: Yes - PSYCHIATRIC Hx Anxiety: Yes Hx Depression: Yes Hx Post Traumatic Stress Disorder: Yes - SURGICAL HISTORY Hx Surgeries: Yes Hx Hysterectomy: Yes Other/Comment: left foot surgery, left hand surgery - ANESTHESIA Hx Anesthesia: Yes Hx Anesthesia Reactions: No Hx Malignant Hyperthermia: No Meds Allergies/Adverse Reactions: Allergies Allergy/AdvReac Type Severity Reaction Status Date / Time ciprofloxacin [From Cipro] Allergy RASH Verified 02/18/17 02:48 ciprofloxacin HCl Allergy RASH Verified 02/18/17 02:48 [From Cipro] hydromorphone HCl Allergy RASH Verified 02/18/17 02:48 [From Dilaudid] lisinopril Allergy RASH Verified 02/18/17 02:48 morphine Allergy ITCHING Verified 02/18/17 02:48 nitroglycerin Allergy RASH Verified 02/18/17 02:48 Penicillins Allergy RASH Verified 02/18/17 02:48 Physical Exam - Constitutional Appears: Non-toxic, No Acute Distress - ENT Exam ENT Exam: Mucous Membranes Moist - Respiratory Exam Respiratory Exam: Chest Wall Tenderness (tenderness to palpation of left rib cage below left breast. ), Clear to Auscultation Bilateral, NORMAL BREATHING PATTERN. absent: Decreased Breath Sounds, Rales, Rhonchi, Wheezes, Respiratory Distress, Stridor - Cardiovascular Exam Cardiovascular Exam: REGULAR RHYTHM, RRR, +S1, +S2. absent: Bradycardia, Tachycardia - GI/Abdominal Exam GI & Abdominal Exam: Normal Bowel Sounds, Soft. absent: Guarding, Rebound, Rigid, Tenderness - Extremities Exam Extremities exam: Positive for: normal inspection. Negative for: calf tenderness, pedal edema Additional comments: Right wrist: mild swelling, and tender to palpation. - Back Exam Back exam: NORMAL INSPECTION. absent: CVA tenderness (L), CVA tenderness (R) - Neurological Exam Neurological exam: Alert, Oriented x3 - Skin Skin Exam: Dry, Intact, Normal Color Results - Vital Signs Recent Vital Signs: Last Vital Signs Temp 98.0 F 09/20/17 23:16 Pulse 86 09/20/17 23:16 Resp 18 09/20/17 23:16 BP 136/82 09/20/17 23:16 Pulse Ox 98 09/20/17 23:16 - Labs Result Diagrams: 09/20/17 22:00 09/20/17 22:00 Labs: Laboratory Results - last 24 hr 09/20/17 09/20/17 09/20/17 22:00 22:00 22:00 WBC 10.3 RBC 4.83 Hgb 11.7 L Hct 35.8 MCV 74.1 L MCH 24.3 L MCHC 32.7 L RDW 17.7 H Plt Count 257 MPV 9.0 Neut % (Auto) 63.2 Lymph % (Auto) 25.8 [place] % (Auto) 6.3 Eos % (Auto) 4.0 Baso % (Auto) 0.7 Neut # (Auto) 6.5 Lymph # (Auto) 2.7 [place] # (Auto) 0.7 Eos # (Auto) 0.4 Baso # (Auto) 0.1 PT 10.3 INR 0.9 APTT 30.1 Sodium 143 Potassium 4.2 Chloride 107 Carbon Dioxide 17 L Anion Gap 23 H BUN 35 H Creatinine 1.1 Est GFR ( Amer) > 60 Est GFR (Non-Af Amer) 51 POC Glucose (mg/dL) Random Glucose 141 H Calcium 9.9 Total Bilirubin 0.5 AST 25 ALT 33 Alkaline Phosphatase 65 Troponin I < 0.0120 Total Protein 6.7 Albumin 3.7 Globulin 3.0 Albumin/Globulin Ratio 1.3 09/20/17 22:08 WBC RBC Hgb Hct MCV MCH MCHC RDW Plt Count MPV Neut % (Auto) Lymph % (Auto) [place] % (Auto) Eos % (Auto) Baso % (Auto) Neut # (Auto) Lymph # (Auto) [place] # (Auto) Eos # (Auto) Baso # (Auto) PT INR APTT Sodium Potassium Chloride Carbon Dioxide Anion Gap BUN Creatinine Est GFR ( Amer) Est GFR (Non-Af Amer) POC Glucose (mg/dL) 148 H Random Glucose Calcium Total Bilirubin AST ALT Alkaline Phosphatase Troponin I Total Protein Albumin Globulin Albumin/Globulin Ratio Assessment & Plan - Assessment and Plan (Free Text) Assessment: 56 yo female with extensive PMHx including HTN, DM type 2, Arthritis, Asthma admitted with chest pain to r/o ACS. Plan: Chest Pain -Telemetry -most likely musculoskeletal etiology, reproducible and aggravated with movements and palpation, but because patient has multiple risk factors, we need to r/o ACS -EKG : NSR, no acute ST-T waves changes noted when compared with prior EKGs -repeat EKG in am -troponin I x 1 neg -f/u troponin I x 2 -s/p aspirin 325 mg po once -c/w home aspirin 81 mg Right wrist pain -could be 2/2 Arthritis vs Carpal Tunnel Syndrome -atraumatic, associated with numbness -wrist splint -pain control with Acetaminophen -X ray: read by me, no gross evidence of fracture, pending official report Hypertension -controlled -c/w home meds Diabetes Mellitus type 2 -accucheck -c/w home meds -diabetic diet -hypoglycemic protocol Asthma -c/w home meds Anxiety -c/w home meds Peripheral Neuropathy -c/w home meds Depression -c/w home meds DVT prophylaxis -SCDs heparin SC - Date & Time Date: 09/21/17 Time: 00:45
[2017-09-21] MEDS ORDERED: Oxycodone/Acetaminophen 5/325 mg Tab PO ONE (02:00)
[2017-09-21 06:41] LABS: BLOOD UREA NITROGEN 35 mg/dl (7-17); CALCIUM 9.4 mg/dL (8.4-10.2); GFR AFRICAN-AMERICAN > 60; GFR NON-AFRICAN AMERICAN 51
--- NOTE | 2017-09-21 07:54 | CP.PCM.PN ---
Subjective - Date & Time of Evaluation Date of Evaluation: 09/21/17 Time of Evaluation: 08:00 Objective - Vital Signs/Intake and Output Vital Signs (last 24 hours): Temp Pulse Resp BP Pulse Ox 98.3 F 73 16 113/75 94 L 09/21/17 05:00 09/21/17 05:00 09/21/17 05:00 09/21/17 05:00 09/21/17 05:00 - Medications Medications: Current Medications Acetaminophen (Tylenol 325mg Tab) 650 mg PO Q4 PRN PRN Reason: Pain, moderate (4-7) Albuterol (Ventolin Hfa 90 Mcg/Actuation (8 G)) 2 puff IH Q4H PRN PRN Reason: Shortness of Breath Aspirin (Ecotrin) 81 mg PO DAILY [facility] Atorvastatin Calcium (Lipitor) 10 mg PO QPM [facility] Last Admin: 09/21/17 00:51 Dose: 10 mg Calcium/Vitamin D (Oyster Shell Calcium/Vitamin D 500 Mg-200 Iu) 1 tab PO DAILY [facility] Clonazepam (Klonopin) 1 mg PO HS [facility] Dextrose (Dextrose 50% Inj) 0 ml IV STAT PRN; Protocol PRN Reason: Hypoglycemia Protocol Dextrose (Glutose 15) 0 gm PO ONCE PRN; Protocol PRN Reason: Hypoglycemia Protocol Escitalopram Oxalate (Lexapro) 20 mg PO HS [facility] Last Admin: 09/21/17 00:51 Dose: 20 mg Gabapentin (Neurontin) 600 mg PO HS [facility] Last Admin: 09/21/17 00:50 Dose: 600 mg Glucagon (Glucagen Diagnostic Kit) 0 mg IM STAT PRN; Protocol PRN Reason: Hypoglycemia Protocol Heparin Sodium (Porcine) (Heparin) 5,000 units SC Q8 [place] PRN Reason: Protocol Sodium Chloride (Sodium Chloride 0.9%) 500 mls @ 100 mls/hr IV .Q5H [facility] Last Admin: 09/21/17 00:49 Dose: 100 mls/hr Losartan Potassium (Cozaar) 25 mg PO DAILY [facility] Meclizine HCl (Antivert) 25 mg PO Q6 PRN PRN Reason: Dizziness Metformin HCl (Glucophage) 1,000 mg PO BID [facility] Last Admin: 09/21/17 00:50 Dose: 1,000 mg Multivitamins/Minerals (Therapeutic-M Tab) 1 tab PO DAILY [facility] Istve-1-Grwf Ethyl Esters (Lovaza) 1 gm PO BID [facility] Oxybutynin Chloride (Ditropan Tab) 5 mg PO TID [facility] Last Admin: 09/21/17 01:05 Dose: 5 mg Pantoprazole Sodium (Protonix Ec Tab) 40 mg PO DAILY [facility] Trazodone HCl (Desyrel) 100 mg PO HS [facility] Last Admin: 09/21/17 00:51 Dose: 100 mg Ziprasidone (Geodon Cap) 40 mg PO BID [facility] Last Admin: 09/21/17 00:50 Dose: 40 mg - Labs Labs: 09/20/17 22:00 09/21/17 05:56 PT 10.3 Seconds (9.8-13.1) 09/20/17 22:00 INR 0.9 (0.9-1.2) 09/20/17 22:00 APTT 30.1 Seconds (25.6-37.1) 09/20/17 22:00
[2017-09-21 08:02] VITALS: O2SAT 97
--- NOTE | 2017-09-21 08:11 | RAD ---
PROCEDURE: Right Wrist Radiographs. HISTORY: pain, no trauma COMPARISON: None. FINDINGS: BONES: No acute fracture or destructive bony lesion identified. JOINTS: Normal. No dislocation. SOFT TISSUES: Normal. OTHER FINDINGS: None. IMPRESSION: No acute fracture or dislocation identified in right wrist radiographs.
--- NOTE | 2017-09-21 08:23 | RAD ---
HISTORY: Chest pain COMPARISON: Portable chest 03/20/2017. FINDINGS: LUNGS: No definite infiltrate is appreciate bilaterally. Patient rotated toward the left accentuating the right hilar vascular markings somewhat. PLEURA: No significant pleural effusion identified, no pneumothorax apparent. CARDIOVASCULAR: Normal. OSSEOUS STRUCTURES: No significant abnormalities. VISUALIZED UPPER ABDOMEN: Normal. OTHER FINDINGS: None. IMPRESSION: No definite interval acute cardiopulmonary disease appreciable at this time. Follow-up chest radiography is available should symptoms persist or worsen.
[2017-09-21] MEDS ORDERED: Calcium-Vit D 500 mg-200 Units Tab UD PO SCH (09:00)
[2017-09-21] MEDS ORDERED: Patient's Own Med (Multivitamin [Multi-Vitamin Daily] 1 TAB) PO SCH (09:00)
[2017-09-21] MEDS ORDERED: Enoxaparin 40 mg Syringe SC SCH (09:00)
[2017-09-21] MEDS ORDERED: Multivitamin With Minerals Tab PO SCH (09:00)
[2017-09-21] MEDS ORDERED: Pantoprazole 40 mg EC Tab PO SCH (09:00)
--- NOTE | 2017-09-21 11:19 | CARD ---
APPROVED REPORT EKG Measurement Heart [id number] NM [id number] <Conclusion> Normal sinus rhythm Nonspecific ST abnormality Abnormal ECG
[2017-09-21 15:35] VITALS: BP 125/84; PULSE 68; RESP 20; TEMP 97.3
--- NOTE | 2017-09-21 16:14 | CP.PCM.DIS ---
Provider - Provider Date of Admission: 09/20/17 22:17 Attending physician: Jessy Medina MD Time Spent in preparation of Discharge (in minutes): 20 Diagnosis - Discharge Diagnosis (1) Chest pain Status: Acute (2) Wrist pain Status: Acute Hospital Course - Lab Results Lab Results: Most Recent Lab Values WBC 10.3 K/uL (4.8-10.8) 09/20/17 22:00 RBC 4.83 Mil/uL (3.80-5.20) 09/20/17 22:00 Hgb 11.7 g/dL (12.0-16.0) L 09/20/17 22:00 Hct 35.8 % (34.0-47.0) 09/20/17 22:00 MCV 74.1 fl (81.0-99.0) L 09/20/17 22:00 MCH 24.3 pg (27.0-31.0) L 09/20/17 22:00 MCHC 32.7 g/dL (33.0-37.0) L 09/20/17 22:00 RDW 17.7 % (11.5-14.5) H 09/20/17 22:00 Plt Count 257 K/uL (130-400) 09/20/17 22:00 MPV 9.0 fl (7.2-11.7) 09/20/17 22:00 Neut % (Auto) 63.2 % (50.0-75.0) 09/20/17 22:00 Lymph % (Auto) 25.8 % (20.0-40.0) 09/20/17 22:00 [place] % (Auto) 6.3 % (0.0-10.0) 09/20/17 22:00 Eos % (Auto) 4.0 % (0.0-4.0) 09/20/17 22:00 Baso % (Auto) 0.7 % (0.0-2.0) 09/20/17 22:00 Neut # (Auto) 6.5 K/uL (1.8-7.0) 09/20/17 22:00 Lymph # (Auto) 2.7 K/uL (1.0-4.3) 09/20/17 22:00 [place] # (Auto) 0.7 K/uL (0.0-0.8) 09/20/17 22:00 Eos # (Auto) 0.4 K/uL (0.0-0.7) 09/20/17 22:00 Baso # (Auto) 0.1 K/uL (0.0-0.2) 09/20/17 22:00 PT 10.3 Seconds (9.8-13.1) 09/20/17 22:00 INR 0.9 (0.9-1.2) 09/20/17 22:00 APTT 30.1 Seconds (25.6-37.1) 09/20/17 22:00 Sodium 143 mmol/l (132-148) 09/21/17 05:56 Potassium 4.0 MMOL/L (3.6-5.0) 09/21/17 05:56 Chloride 108 mmol/L (98-107) H 09/21/17 05:56 Carbon Dioxide 20 mmol/L (22-30) L 09/21/17 05:56 Anion Gap 19 (10-20) 09/21/17 05:56 BUN 35 mg/dl (7-17) H 09/21/17 05:56 Creatinine 1.1 mg/dl (0.7-1.2) 09/21/17 05:56 Est GFR ( Amer) > 60 09/21/17 05:56 Est GFR (Non-Af Amer) 51 09/21/17 05:56 POC Glucose (mg/dL) 100 mg/dL (65-110) 09/21/17 11:12 Random Glucose 101 mg/dL (65-105) 09/21/17 05:56 Calcium 9.4 mg/dL (8.4-10.2) 09/21/17 05:56 Total Bilirubin 0.5 mg/dl (0.2-1.3) 09/20/17 22:00 AST 25 U/L (14-36) 09/20/17 22:00 ALT 33 U/L (9-52) 09/20/17 22:00 Alkaline Phosphatase 65 U/L (38-126) 09/20/17 22:00 Troponin I < 0.0120 ng/mL (0.00-0.120) 09/21/17 14:01 Total Protein 6.7 G/DL (6.3-8.2) 09/20/17 22:00 Albumin 3.7 g/dL (3.5-5.0) 09/20/17 22:00 Globulin 3.0 gm/dL (2.2-3.9) 09/20/17 22:00 Albumin/Globulin Ratio 1.3 (1.0-2.1) 09/20/17 22:00 - Hospital Course Hospital Course: 56 yo female with extensive PMHx including HTN, DM type 2, Arthritis, Asthma admitted with chest pain. R/o ACS: EKG; troponin negative x 3. R wrist in splint , with XR: no fractures. stable for discharge to home. Will follow up with Dr. Smith. Discharge Exam - Eye Exam Eye Exam: EOMI - Respiratory Exam Respiratory Exam: Clear to PA & Lateral, UNREMARKABLE. absent: Wheezes - Cardiovascular Exam Cardiovascular Exam: REGULAR RHYTHM, +S1, +S2 - GI/Abdominal Exam GI & Abdominal Exam: Normal Bowel Sounds, Soft. absent: Tenderness - Neurological Exam Neurological exam: Alert, CN II-XII Intact, Normal Gait, Oriented x3 - Psychiatric Exam Psychiatric exam: Normal Affect, Normal Mood Discharge Plan - Discharge Medications Prescriptions: Albuterol HFA [Ventolin HFA 90 mcg/actuation (8 g)] 2 puff IH Q4H PRN #1 inhaler PRN Reason: Shortness Of Breath Aspirin [Ecotrin] 81 mg PO DAILY #1 tabec Calcium/Vitamin D [Oyster Shell Calcium/Vitamin D 500 mg-200 IU] 1 tab PO DAILY #1 tab clonazePAM [Klonopin] 1 mg PO HS #1 tab Escitalopram [Lexapro] 20 mg PO HS #1 tab Gabapentin [Neurontin] 600 mg PO HS #1 tab Losartan [Cozaar] 25 mg PO DAILY #1 tab Meclizine [Meclizine*] 25 mg PO Q6 PRN #20 tab PRN Reason: Dizziness MetFORMIN [glucoPHAGE] 1,000 mg PO BID #1 tab Multivitamin [Multi-Vitamin Daily] 1 tab PO DAILY #1 tablet [place]-3 Fatty Acids/Fish Oil [Fish Oil 1,000 mg Capsule] 1,000 mg PO BID #1 capsule Omeprazole 20 mg PO BID #1 capsule. Oxybutynin XL [Ditropan XL] 15 mg PO Q12H #1 ter Simvastatin 20 mg PO QPM #1 tablet traZODone [Desyrel] 100 mg PO HS #1 tab Ziprasidone [Geodon Cap] 40 mg PO BID #1 cap - Follow Up Plan Condition: STABLE Disposition: HOME/ ROUTINE Instructions: Chest Pain Referrals: Provider TBD, [Non-Staff] -
--- NOTE | 2017-09-22 08:43 | CARD ---
APPROVED REPORT EKG Measurement Heart [id number] <Conclusion> Normal sinus rhythm Nonspecific ST abnormality Abnormal ECG
== END 2017-09-21 17:20 | disposition home or self-care (01) ==
LOC: H.ER 20:07 → SUPCPDRO 20:07 → H.ERHOLD 22:17 → H.TEL 23:55
PROVIDERS: ADMIT Family Medicine Geriatric Medicine; ATTEND Family Medicine Geriatric Medicine
DX: R07.89 Other chest pain (principal); M25.531 Pain in right wrist; E11.22 Type 2 diabetes mellitus with diabetic chronic kidney disease; E78.00 Pure hypercholesterolemia, unspecified; I12.9 Hypertensive chronic kidney disease with stage 1 through stage 4 chronic kidney disease, or unspecified chronic kidney disease; N18.9 Chronic kidney disease, unspecified; K21.9 Gastro-esophageal reflux disease without esophagitis; J45.909 Unspecified asthma, uncomplicated; Z79.82 Long term (current) use of aspirin; Z87.01 Personal history of pneumonia (recurrent); Z87.440 Personal history of urinary (tract) infections; Z87.442 Personal history of urinary calculi; F41.9 Anxiety disorder, unspecified; Z79.84 Long term (current) use of oral hypoglycemic drugs; Z88.6 Allergy status to analgesic agent; Z88.1 Allergy status to other antibiotic agents
CPT/HCPCS: 36415; 71045; 73110; 80048; 80053; 82948; 84484; 85025; 85610; 85730; 93005; 96374; 99283; G0378; J1644; J1885; J7040

== ENCOUNTER 2017-11-07 15:31 | Emergency (ER) | payer MEDICAID ==
[2017-11-07 15:31] VITALS: BMI 43.8
[2017-11-07 15:45] VITALS: TEMP 98.4; O2SAT 98
[2017-11-07] MEDS ORDERED: Oxycodone/Acetaminophen 5/325 mg Tab PO ONE (16:06)
--- NOTE | 2017-11-07 16:11 | ED PDOC ---
HPI: Trauma/Fall - HPI Time Seen by Provider: 11/07/17 15:51 Chief Complaint (Nursing): Hip Pain Chief Complaint (Provider): Fall History Per: Patient History/Exam Limitations: no limitations Onset/Duration Of Symptoms: Days (Sunday11/05/17) Additional Complaint(s): Pt. had an accidentally fall when walking as her knee has trouble moving well from missing cartiliage. She fell backward and hit the right hip, low back, and back of her head on the ground. ? LOC. EMS helped her back to bed and pt. has been dealing with the pain. Has been walking around with her cane and saw her pain management doctor today. He sent her to the ER for imaging of her hip. Pt. denies any numbness, tingles, weakness, abd pain, chest pain, dyspnea , weakness, dizziness. No incontinence or constipation. Ambulates and puts weight on both legs. Ran out of percocet and tramadol. Past Medical History Reviewed: Nursing Documentation, Vital Signs Vital Signs: Last Vital Signs Temp 98.4 F 11/07/17 15:41 Pulse 76 11/07/17 16:26 Resp 22 11/07/17 16:26 BP 160/77 H 11/07/17 16:26 Pulse Ox 98 11/07/17 16:26 - Medical History PMH: Anxiety, Arthritis, Asthma, Bipolar Disorder, Depression, Diabetes, HTN, Hypercholesterolemia, Kidney Stones (stent placement), Migraine, Pneumonia, Post Traumatic Stress Disorder Denies: HIV - Family History Family History: States: Unknown Family Hx - Immunization History Hx Tetanus Toxoid Vaccination: No Hx Influenza Vaccination: Yes Hx Pneumococcal Vaccination: Yes - Home Medications Home Medications: Ambulatory Orders Medication Instructions Recorded Albuterol HFA [Ventolin HFA 90 2 puff IH Q4H PRN #1 inhaler 09/21/17 mcg/actuation (8 g)] Aspirin [Ecotrin] 81 mg PO DAILY #1 tabec 09/21/17 Calcium/Vitamin D [Oyster Shell 1 tab PO DAILY #1 tab 09/21/17 Calcium/Vitamin D 500 mg-200 IU] Escitalopram [Lexapro] 20 mg PO HS #1 tab 09/21/17 Gabapentin [Neurontin] 600 mg PO HS #1 tab 09/21/17 Losartan [Cozaar] 25 mg PO DAILY #1 tab 09/21/17 Meclizine [Meclizine*] 25 mg PO Q6 PRN #20 tab 09/21/17 MetFORMIN [glucoPHAGE] 1,000 mg PO BID #1 tab 09/21/17 Multimineral/Multivitamin 1 tab PO DAILY tab 09/21/17 [Therapeutic-M Tab] Multivitamin [Multi-Vitamin Daily] 1 tab PO DAILY #1 tablet 09/21/17 [place]-3 Fatty Acids/Fish Oil [Fish 1,000 mg PO BID #1 capsule 09/21/17 Oil 1,000 mg Capsule] Omeprazole 20 mg PO BID #1 capsule. 09/21/17 Oxybutynin XL [Ditropan XL] 15 mg PO Q12H #1 ter 09/21/17 Simvastatin 20 mg PO QPM #1 tablet 09/21/17 Ziprasidone [Geodon Cap] 40 mg PO BID #1 cap 09/21/17 clonazePAM [Klonopin] 1 mg PO HS #1 tab 09/21/17 traZODone [Desyrel] 100 mg PO HS #1 tab 09/21/17 traMADol [Ultram] 50 mg PO BID PRN 3 Days tab 11/07/17 - Allergies Allergies/Adverse Reactions: Allergies Allergy/AdvReac Type Severity Reaction Status Date / Time ciprofloxacin [From Cipro] Allergy RASH Verified 11/07/17 15:40 ciprofloxacin HCl Allergy RASH Verified 11/07/17 15:40 [From Cipro] hydromorphone HCl Allergy RASH Verified 11/07/17 15:40 [From Dilaudid] lisinopril Allergy RASH Verified 11/07/17 15:40 morphine Allergy ITCHING Verified 11/07/17 15:40 nitroglycerin Allergy RASH Verified 11/07/17 15:40 Penicillins Allergy RASH Verified 11/07/17 15:40 Review of Systems ROS Statement: Except As Marked, All Systems Reviewed And Found Negative Constitutional: Negative for: Weakness ENT: Negative for: Throat Pain Cardiovascular: Negative for: Chest Pain Respiratory: Negative for: Cough, Shortness of Breath Gastrointestinal: Negative for: Nausea, Vomiting, Abdominal Pain Musculoskeletal: Positive for: Back Pain, Leg Pain Neurological: Positive for: Headache. Negative for: Weakness, Numbness, Incoordination, Change in Speech, Confusion, Seizures, Dizziness Physical Exam - Reviewed Nursing Documentation Reviewed: Yes Vital Signs Reviewed: Yes - Physical Exam Appears: Positive for: Non-toxic, No Acute Distress Head Exam: Negative for: NORMAL INSPECTION (mild diffuse tender posterior head with no hematoma or gross swelling) Skin: Positive for: Normal Color, Warm, DRY Eye Exam: Positive for: EOMI, Normal appearance, PERRL ENT: Positive for: Normal ENT Inspection. Negative for: Nasal Congestion, Pharyngeal Erythema Neck: Positive for: Supple. Negative for: Normal (mild tender right lateral neck with no echymosis or erythema/swelling), Decreased ROM Cardiovascular/Chest: Positive for: Regular Rate, Rhythm Respiratory: Positive for: Normal Breath Sounds. Negative for: Decreased Breath Sounds, Accessory Muscle Use Gastrointestinal/Abdominal: Positive for: Normal Exam, Soft. Negative for: Tenderness Back: Positive for: Other (mild tender right lower back with no gross erythema or echymosis). Negative for: L CVA Tenderness, R CVA Tenderness Extremity: Positive for: Normal ROM, Tenderness (mild right hip with no echymosis). Negative for: Pedal Edema Neurologic/Psych: Positive for: Alert, insurance claims specialist II-XII, Oriented, Other (straight leg neg b/l). Negative for: Motor/Sensory Deficits - ECG ECG: Positive for: Interpreted By Me, Viewed By Me ECG Rhythm: Positive for: Normal QRS, Normal ST Segment, Sinus Rhythm O2 Sat by Pulse Oximetry: 98 Pulse Ox Interpretation: Normal - Radiology X-Ray: Read By Radiologist X-Ray Interpretation: No Acute Disease - CT Scan/US ct Other Rad Studies (CT/US): Read By Radiologist Other Rad Interpretation: no acute - Progress ED Course And Treament: 1800: Stable. AAOx3. Tolerated po. Ambulated with no issues. Fu with pain management and pcp. Has chronic knee and back pain issues. Disposition - Clinical Impression Clinical Impression: Hip pain, Head injury, Back pain - Patient ED Disposition Is Patient to be Admitted: No Counseled Patient/Family Regarding: Studies Performed, Diagnosis, Need For Followup, Rx Given - Disposition Referrals: [facility] [Outside] - 11/08/17 Disposition: Routine/Home Disposition Time: 17:30 Condition: FAIR Additional Instructions: Return if not better in 3 days. Prescriptions: traMADol [Ultram] 50 mg PO BID PRN 3 Days tab PRN Reason: Pain, Severe (8-10) Instructions: Closed Head Injury, Hip Pain (DC), Low Back Pain in Adults Forms: [facility] ED School/Work Excuse
[2017-11-07] MEDS ORDERED: Oxycodone/Acetaminophen 5/325 mg Tab ONE (16:12)
[2017-11-07 16:27] VITALS: BP 160/77; PULSE 76; RESP 22
--- NOTE | 2017-11-07 17:02 | RAD ---
PROCEDURE: Radiographs of the Lumbar Spine. HISTORY: Pain. No history of recent/ related trauma provided COMPARISON: 10/22/2014 FINDINGS: BONES: No acute fractures. Stable non marginal osteophyte formation. DISC SPACES: No significant changes. OTHER FINDINGS: None. IMPRESSION: No significant or acute findings to account for/ related to the clinical presentation. No significant interval change compared to the prior examination(s).
--- NOTE | 2017-11-07 17:03 | RAD ---
PROCEDURE: Pelvis and right hip HISTORY: Back Pain. No history of recent/ related trauma provided COMPARISON: None TECHNIQUE: Standard protocol for this study/examination. FINDINGS: There are no osseous abnormalities to suggest fracture. The pelvic ring is intact. Preserved femoral-acetabular relationship. Negative study for protrusio, subluxation or dislocation. Degenerative changes: Moderate in degree slightly asymmetric right more severe than left. IMPRESSION: No acute findings related to/accounting for the clinical presentation.
--- NOTE | 2017-11-07 17:51 | CT ---
PROCEDURE: CT HEAD WITHOUT CONTRAST. HISTORY: headache COMPARISON: Noncontrast head CT 09/01/2017. TECHNIQUE: Axial computed tomography images were obtained through the head/brain without intravenous contrast. Radiation dose: Total exam DLP = 1291.42 mGy-cm. This CT exam was performed using one or more of the following dose reduction techniques: Automated exposure control, adjustment of the mA and/or kV according to patient size, and/or use of iterative reconstruction technique. FINDINGS: HEMORRHAGE: No intracranial hemorrhage. BRAIN: Good corticomedullary differentiation is seen. Minimal but diffuse expansion of the ventriculosulcal and cisternal spaces is appreciated with trace periventricular white matter lucency compatible with diffuse cerebral atrophy and chronic microangiopathy. No suspicious extra-axial fluid collection is identified and the midline brain anatomy appears grossly nonfocal as imaged. There is no mass effect throughout. VENTRICLES: Unremarkable. No hydrocephalus. CALVARIUM: No destructive bony lesion or displaced fracture identified including through the skullbase. PARANASAL SINUSES: Unremarkable as visualized. No significant inflammatory changes. MASTOID AIR CELLS: Unremarkable as visualized. No inflammatory changes. OTHER FINDINGS: None. IMPRESSION: Unremarkable noncontrast head CT with no significant interval change from prior CT dated 09/01/2017.
--- NOTE | 2017-11-07 17:57 | CT ---
PROCEDURE: CT Cervical Spine without contrast HISTORY: neck pain COMPARISON: 09/19/2018. CT cervical spine TECHNIQUE: Axial computed tomography images were obtained of the cervical spine without the use of intravenous contrast. Coronal and sagittal reformatted images were created and reviewed. Radiation dose: Total exam DLP = 1130.18 mGy-cm. This CT exam was performed using one or more of the following dose reduction techniques: Automated exposure control, adjustment of the mA and/or kV according to patient size, and/or use of iterative reconstruction technique. FINDINGS: VERTEBRAE: Reversal of the anatomic lordosis with kyphosis. Degree: Mild. DISCS/SPINAL CANAL/NEURAL FORAMINA: Progressive degenerative changes primarily mid and lower cervical spine consisting of disc space narrowing, non marginal osteophyte formation, PARASPINAL SOFT TISSUES: Unremarkable. OTHER FINDINGS: None. IMPRESSION: No acute findings related to/accounting for the clinical presentation. Progressive degenerative changes compared to the prior study.
--- NOTE | 2017-11-08 12:01 | CARD ---
APPROVED REPORT EKG Measurement Heart [id number] <Conclusion> Normal sinus rhythm Normal ECG
== END 2017-11-07 18:59 | disposition home or self-care (01) ==
LOC: H.ER 15:31
DX: S09.90XA Unspecified injury of head, initial encounter (principal); M54.9 Dorsalgia, unspecified; M25.551 Pain in right hip; W19.XXXA Unspecified fall, initial encounter; Y92.89 Other specified places as the place of occurrence of the external cause; E11.9 Type 2 diabetes mellitus without complications; E78.00 Pure hypercholesterolemia, unspecified; F31.9 Bipolar disorder, unspecified; F43.10 Post-traumatic stress disorder, unspecified; I10 Essential (primary) hypertension; J45.909 Unspecified asthma, uncomplicated; Z79.82 Long term (current) use of aspirin; Z79.84 Long term (current) use of oral hypoglycemic drugs; Z88.0 Allergy status to penicillin

== ENCOUNTER 2018-02-23 09:45 | Emergency (ER) | payer MEDICAID ==
[2018-02-23 09:47] VITALS: BMI 43.0
--- NOTE | 2018-02-23 10:24 | ED PDOC ---
HPI: Trauma/Fall - HPI Time Seen by Provider: 02/23/18 09:52 Chief Complaint (Nursing): Trauma Chief Complaint (Provider): Fall History Per: Patient History/Exam Limitations: no limitations Onset/Duration Of Symptoms: Hrs Injury Occurred (Timing): Just Before Arrival Description Of Injury (Context): Fell of her bed Location Of Injury: Right: Hip, Neck, Left: Hand, Knee, Wrist, Anterior: Face ( Nose), Head, Posterior: Neck Associated Symptoms: Dazed Additional Complaint(s): Pt is a 57 yo F here for pain after falling out of her bed this morning. Pt states she usually uses a step stool to get into bed, she tried to throw something out in the garbage missed it and tried to pick it up, she fell on her outstretched left hand, left knee, and nose. It took pt 45 minutes to get up off the floor due to the pain, she states she needs a R hip replacement and L knee replacement which contributed to her difficulty standing. Pt denies, syncope, or bloody nose. Pt states she has a headache, pain in the back of her neck, nose, left wrist, right hip and left knee pain. - Fall Fall:Prior To Injury: Other (Fell out of bed) Past Medical History Vital Signs: Last Vital Signs Temp 99.1 F 02/23/18 09:47 Pulse 88 02/23/18 09:47 Resp 17 02/23/18 09:47 BP 138/92 H 02/23/18 09:47 Pulse Ox 94 L 02/23/18 09:47 - Medical History PMH: Anxiety, Arthritis, Asthma, Bipolar Disorder, Depression, Diabetes, HTN, Hypercholesterolemia, Kidney Stones (stent placement), Migraine, Pneumonia, Post Traumatic Stress Disorder, Chronic Kidney Disease Denies: HIV Other PMH: Neuropathy - Surgical History Other surgeries: Hysterectomy-2010, Lipoma, Hand surgery, Left foot titanium arch - Family History Family History: States: Unknown Family Hx - Social History Current smoker - smoking cessation education provided: No Alcohol: None Drugs: Cannabis - Immunization History Hx Tetanus Toxoid Vaccination: No Hx Influenza Vaccination: Yes Hx Pneumococcal Vaccination: Yes - Home Medications Home Medications: Ambulatory Orders Medication Instructions Recorded Albuterol HFA [Ventolin HFA 90 2 puff IH Q4H PRN #1 inhaler 09/21/17 mcg/actuation (8 g)] Aspirin [Ecotrin] 81 mg PO DAILY #1 tabec 09/21/17 Calcium/Vitamin D [Oyster Shell 1 tab PO DAILY #1 tab 09/21/17 Calcium/Vitamin D 500 mg-200 IU] Escitalopram [Lexapro] 20 mg PO HS #1 tab 09/21/17 Gabapentin [Neurontin] 600 mg PO HS #1 tab 09/21/17 Losartan [Cozaar] 25 mg PO DAILY #1 tab 09/21/17 Meclizine [Meclizine*] 25 mg PO Q6 PRN #20 tab 09/21/17 MetFORMIN [glucoPHAGE] 1,000 mg PO BID #1 tab 09/21/17 Multimineral/Multivitamin 1 tab PO DAILY tab 09/21/17 [Therapeutic-M Tab] Multivitamin [Multi-Vitamin Daily] 1 tab PO DAILY #1 tablet 09/21/17 [place]-3 Fatty Acids/Fish Oil [Fish 1,000 mg PO BID #1 capsule 09/21/17 Oil 1,000 mg Capsule] Omeprazole 20 mg PO BID #1 capsule. 09/21/17 Oxybutynin XL [Ditropan XL] 15 mg PO Q12H #1 ter 09/21/17 Simvastatin 20 mg PO QPM #1 tablet 09/21/17 Ziprasidone [Geodon Cap] 40 mg PO BID #1 cap 09/21/17 clonazePAM [Klonopin] 1 mg PO HS #1 tab 09/21/17 traZODone [Desyrel] 100 mg PO HS #1 tab 09/21/17 traMADol [Ultram] 50 mg PO BID PRN 3 Days tab 11/07/17 Nitrofurantoin Macrocrystals 100 mg PO BID #13 cap 02/23/18 [Macrobid] - Allergies Allergies/Adverse Reactions: Allergies Allergy/AdvReac Type Severity Reaction Status Date / Time ciprofloxacin [From Cipro] Allergy RASH Verified 11/07/17 15:40 ciprofloxacin HCl Allergy RASH Verified 11/07/17 15:40 [From Cipro] hydromorphone HCl Allergy RASH Verified 11/07/17 15:40 [From Dilaudid] lisinopril Allergy RASH Verified 11/07/17 15:40 morphine Allergy ITCHING Verified 11/07/17 15:40 nitroglycerin Allergy RASH Verified 11/07/17 15:40 Penicillins Allergy RASH Verified 11/07/17 15:40 Review of Systems ENT: Positive for: Nose Pain Genitourinary Female: Positive for: Dysuria, Incontinence Musculoskeletal: Positive for: Neck Pain, Hand Pain, Leg Pain Neurological: Positive for: Headache Physical Exam - Physical Exam Appears: Positive for: Well, Non-toxic, No Acute Distress Head Exam: Positive for: ATRAUMATIC, NORMAL INSPECTION, NORMOCEPHALIC Skin: Positive for: Normal Color Eye Exam: Positive for: Normal appearance, EOMI ENT: Positive for: Other (Nose pain) Neck: Positive for: Pain On Movement Of Neck (Hurts to move to Right ) Cardiovascular/Chest: Positive for: Regular Rate, Rhythm Respiratory: Positive for: Normal Breath Sounds Gastrointestinal/Abdominal: Positive for: Normal Exam Extremity: Positive for: Other (left knee erythema and swelling, no lacerations or bruises) Neurologic/Psych: Positive for: Alert, Oriented - ECG O2 Sat by Pulse Oximetry: 94 - Progress ED Course And Treament: Pt is a 57 yo F here due to multisystem trauma after fall -Head CT w/out Contrast -Maxillofacial CT w/out Contrast -C spine CT w/out Contrast -Xray of L wrist -Xray of R hip and pelvis -Xray of L knee -Urine Dip -Tylenol 650mg Once -Clonazepam 0.5mg Once -Macrobid 100mg Once Condition: Re-examined, Improving,but remains with symptoms (Patient has improving ROM of neck, Pain located on lateral side of neck not midline , no C spine tenderness) Disposition - Clinical Impression Clinical Impression: Head injury, Knee injury, DJD (degenerative joint disease), UTI (urinary tract infection) - Disposition Referrals: [facility] [place] [facility] [Outside] Disposition: Routine/Home Disposition Time: 13:54 Condition: FAIR Prescriptions: Nitrofurantoin Macrocrystals [Macrobid] 100 mg PO BID #13 cap Instructions: Osteoarthritis, Urinary Tract Infection, Adult (DC), Minor Head Injury (DC) Forms: [employer] ([place])
--- NOTE | 2018-02-23 11:45 | CT ---
Date of service: 02/23/2018 PROCEDURE: CT HEAD WITHOUT CONTRAST. HISTORY: Head injury COMPARISON: 11/07/2017 TECHNIQUE: Axial computed tomography images were obtained through the head/brain without intravenous contrast. Radiation dose: Total exam DLP = 864 mGy-cm. This CT exam was performed using one or more of the following dose reduction techniques: Automated exposure control, adjustment of the mA and/or kV according to patient size, and/or use of iterative reconstruction technique. FINDINGS: HEMORRHAGE: No intracranial hemorrhage. BRAIN: No mass effect or edema. Mild cerebral cortical atrophy is noted. No cortical effacement is seen. Minor small vessel changes are seen in the white matter tracts. VENTRICLES: Unremarkable. No hydrocephalus. CALVARIUM: Unremarkable. PARANASAL SINUSES: Unremarkable as visualized. No significant inflammatory changes. MASTOID AIR CELLS: Unremarkable as visualized. No inflammatory changes. OTHER FINDINGS: None. IMPRESSION: No evidence of intracranial hemorrhage or recent infarct. Mild cerebral atrophy. This is slightly greater than expected for the patient's age.
--- NOTE | 2018-02-23 11:51 | CT ---
Date of service: 02/23/2018 PROCEDURE: CT MAXILLOFACIAL BONES WITHOUT CONTRAST HISTORY: Fall COMPARISON: None available. TECHNIQUE: Contiguous axial CT images of the maxillofacial bones were obtained. Coronal and sagittal reformats were generated. Radiation dose: Total exam DLP = eight hundred sixty-four mGy-cm. This CT exam was performed using one or more of the following dose reduction techniques: Automated exposure control, adjustment of the mA and/or kV according to patient size, and/or use of iterative reconstruction technique. FINDINGS: NASAL BONES: Unremarkable. ORBITS: Unremarkable. PARANASAL SINUSES/ MASTOIDS: Minimal mucosal thickening is seen in the sinuses. Mastoid air cells are well aerated. No fluid levels are seen. Ostiomeatal complexes are patent. MAXILLA: Unremarkable. MANDIBLE/ TEMPOROMANDIBULAR JOINTS: Unremarkable. SKULL BASE: Unremarkable. TEMPORAL BONES: Middle ears and mastoid grossly unremarkable. OTHER FINDINGS: No nasal cavity masses are seen. Nasal septum is slightly deviated to the right. Mandibles are intact. Visualized spine is intact. IMPRESSION: No CT scan evidence of fracture. No evidence of sinusitis.
--- NOTE | 2018-02-23 12:18 | CT ---
Date of service: 02/23/2018 PROCEDURE: CT Cervical Spine without contrast HISTORY: Fall COMPARISON: 11/07/2017 TECHNIQUE: Axial computed tomography images were obtained of the cervical spine without the use of intravenous contrast. Coronal and sagittal reformatted images were created and reviewed. Radiation dose: Total exam DLP = 570 mGy-cm. This CT exam was performed using one or more of the following dose reduction techniques: Automated exposure control, adjustment of the mA and/or kV according to patient size, and/or use of iterative reconstruction technique. FINDINGS: VERTEBRAE: Motion artifact limits examination especially in the lower cervical and upper thoracic spine region. Underlying fracture in these regions cannot be excluded on this examination. No appreciable fracture is noted. No prevertebral soft tissue swelling is seen. DISCS/SPINAL CANAL/NEURAL FORAMINA: Multilevel degenerative disc disease is noted. No central canal epidural collections are appreciated. There is no interval change in the disc osteophyte complexes. No jumped facets are identified. C1-C2 articulation is within normal limits. PARASPINAL SOFT TISSUES: No prevertebral soft tissue swelling seen. Posterior soft tissues are unremarkable. Thoracic inlet is within normal limits. OTHER FINDINGS: Lung apices are within normal limits an unchanged with chronic emphysematous changes noted. IMPRESSION: Limited examination due to motion artifact. Fracture in the lower cervical and upper thoracic spine region cannot be excluded on this exam although no appreciable fractures or new area of malalignment are noted when compared to prior study dated 11/07/2017. Correlation for symptoms is suggested.
--- NOTE | 2018-02-23 12:30 | RAD ---
PROCEDURE: Right Hip Radiographs. HISTORY: Fall COMPARISON: None. FINDINGS: BONES: Frontal and frogleg views of the right hip and frontal view of the pelvis were performed for trauma. Moderate degenerative changes of the right hip and left hip are noted. No fracture is seen. No lytic process is noted. Pubic rami are intact. No sacroiliac joint widening is seen. No femoral head flattening is noted. There is intact trochanters identified. JOINTS: See above. SOFT TISSUES: No soft tissue mass is seen. OTHER FINDINGS: None. IMPRESSION: Moderate DJD right hip. No appreciable fracture.
--- NOTE | 2018-02-23 12:31 | RAD ---
Date of service: 02/23/2018 PROCEDURE: Left Knee Radiographs. HISTORY: Pain. COMPARISON: None. FINDINGS: BONES: Three views of the left knee were performed for left knee pain. Moderate degenerative changes are seen. No fracture is seen. Small joint effusion is noted. JOINTS: DJD. JOINT EFFUSION: Small joint effusion. OTHER FINDINGS: None. IMPRESSION: No fracture. DJD left knee
--- NOTE | 2018-02-23 12:32 | RAD ---
Date of service: 02/23/2018 PROCEDURE: Left Wrist Radiographs. HISTORY: Fall COMPARISON: None. FINDINGS: BONES: Three views of the left wrist were performed for left wrist pain and trauma. No fracture is seen. No carpal bone widening is noted. Navicular bone appears to be intact. Mild soft tissue swelling is identified. Distal radius and ulna are intact as well as the visualized metacarpals. JOINTS: See above SOFT TISSUES: See above OTHER FINDINGS: None. IMPRESSION: No fracture.
[2018-02-23 13:08] VITALS: PULSE 80; RESP 19
[2018-02-23 13:46] VITALS: BP 130/78; TEMP 97
[2018-02-23 13:54] VITALS: O2SAT 94
== END 2018-02-23 14:12 | disposition home or self-care (01) ==
LOC: H.ER 09:45
DX: S09.90XA Unspecified injury of head, initial encounter (principal); M19.90 Unspecified osteoarthritis, unspecified site; N39.0 Urinary tract infection, site not specified; S89.90XA Unspecified injury of unspecified lower leg, initial encounter; W06.XXXA Fall from bed, initial encounter; Z87.442 Personal history of urinary calculi; Z88.0 Allergy status to penicillin; N18.9 Chronic kidney disease, unspecified; I12.9 Hypertensive chronic kidney disease with stage 1 through stage 4 chronic kidney disease, or unspecified chronic kidney disease; J45.909 Unspecified asthma, uncomplicated; Z86.59 Personal history of other mental and behavioral disorders; F43.10 Post-traumatic stress disorder, unspecified

== ENCOUNTER 2018-04-10 12:53 | Emergency (ER) | payer MEDICAID ==
[2018-04-10 12:53] VITALS: BMI 42.3
[2018-04-10 12:58] VITALS: BP 147/75; PULSE 71; RESP 20; TEMP 97.7; O2SAT 99
--- NOTE | 2018-04-10 13:40 | ED PDOC ---
Lower Extremity Pain/Injury Time Seen by Provider: 04/10/18 13:04 Chief Complaint (Nursing): Lower Extremity Problem/Injury Chief Complaint (Provider): Hip Pain History Per: Patient History/Exam Limitations: no limitations Additional Complaint(s): Precious Lugo is a 57 year old female with a past medical history of anxiety, hypertension, diabetes, and hypercholesterolemia who is presenting to the ED for evaluation of acute on chronic right hip pain. Patient states that she has had right hip pain for the past year and is under pain management with Dr. Waters. She states that she saw the pain management doctor last night who gave her an injection for hip pain with significant temporary relief thought the night and this morning. Patient states that she cant recall the name of the medication. She reports that after she got home from her stress test this morning, she was climbing the stairs when she felt sudden onset sharp right hip pain. Patient states that she couldnt walk so she called ems and denies taking any pain medications today. She states this is her typical pain just magnified and denies any falls or trauma. She does admit that she has a history of arthritis in that hip but states that she has not had any recent imagining in the past year. Patient offers no other medical complaints at this time. PMD: Fahad Montes Past Medical History Reviewed: Historical Data, Nursing Documentation, Vital Signs Vital Signs: Last Vital Signs Temp 97.7 F 04/10/18 12:54 Pulse 71 04/10/18 12:54 Resp 20 04/10/18 12:54 BP 147/75 04/10/18 12:54 Pulse Ox 99 04/10/18 12:54 - Medical History PMH: Anxiety, Arthritis, Asthma, Bipolar Disorder, Depression, Diabetes, HTN, Hypercholesterolemia, Kidney Stones (stent placement), Migraine, Pneumonia, Post Traumatic Stress Disorder, Chronic Kidney Disease - Surgical History Other surgeries: procedure to left foot, multiple lipomas, hysterectomy - Family History Family History: States: Unknown Family Hx - Social History Current smoker - smoking cessation education provided: No Alcohol: None Drugs: Denies - Home Medications Home Medications: Ambulatory Orders Medication Instructions Recorded RX: Albuterol HFA [Ventolin HFA 90 2 puff IH Q4H PRN #1 inhaler 09/21/17 mcg/actuation (8 g)] RX: Aspirin [Ecotrin] 81 mg PO DAILY #1 tabec 09/21/17 RX: Calcium/Vitamin D [Oyster 1 tab PO DAILY #1 tab 09/21/17 Shell Calcium/Vitamin D 500 mg-200 IU] RX: Escitalopram [Lexapro] 20 mg PO HS #1 tab 09/21/17 RX: Gabapentin [Neurontin] 600 mg PO HS #1 tab 09/21/17 RX: Losartan [Cozaar] 25 mg PO DAILY #1 tab 09/21/17 RX: Meclizine [Meclizine*] 25 mg PO Q6 PRN #20 tab 09/21/17 RX: MetFORMIN [glucoPHAGE] 1,000 mg PO BID #1 tab 09/21/17 RX: Multimineral/Multivitamin 1 tab PO DAILY tab 09/21/17 [Therapeutic-M Tab] RX: Multivitamin [Multi-Vitamin 1 tab PO DAILY #1 tablet 09/21/17 Daily] RX: [place]-3 Fatty Acids/Fish Oil 1,000 mg PO BID #1 capsule 09/21/17 [Fish Oil 1,000 mg Capsule] RX: Omeprazole 20 mg PO BID #1 capsule.dr 09/21/17 RX: Oxybutynin XL [Ditropan XL] 15 mg PO Q12H #1 ter 09/21/17 RX: Simvastatin 20 mg PO QPM #1 tablet 09/21/17 RX: Ziprasidone [Geodon Cap] 40 mg PO BID #1 cap 09/21/17 RX: clonazePAM [Klonopin] 1 mg PO HS #1 tab 09/21/17 RX: traZODone [Desyrel] 100 mg PO HS #1 tab 09/21/17 RX: traMADol [Ultram] 50 mg PO BID PRN 3 Days tab 11/07/17 Nitrofurantoin Macrocrystals 100 mg PO BID #13 cap 02/23/18 [Macrobid] Meloxicam [Mobic] 15 mg PO DAILY #14 tab 04/10/18 - Allergies Allergies/Adverse Reactions: Allergies Allergy/AdvReac Type Severity Reaction Status Date / Time ciprofloxacin [From Cipro] Allergy RASH Verified 04/10/18 12:59 ciprofloxacin HCl Allergy RASH Verified 04/10/18 12:59 [From Cipro] hydromorphone HCl Allergy RASH Verified 04/10/18 12:59 [From Dilaudid] lisinopril Allergy RASH Verified 04/10/18 12:59 morphine Allergy ITCHING Verified 04/10/18 12:59 nitroglycerin Allergy RASH Verified 04/10/18 12:59 Penicillins Allergy RASH Verified 04/10/18 12:59 Review of Systems ROS Statement: Except As Marked, All Systems Reviewed And Found Negative Musculoskeletal: Positive for: Other (right hip pain) Physical Exam - Reviewed Nursing Documentation Reviewed: Yes Vital Signs Reviewed: Yes - Physical Exam Comments: GENERAL APPEARANCE: Patient is awake, alert, oriented x 3, in no acute distress but appears uncomfortable. SKIN: Warm, dry; (-) cyanosis. NECK: Supple, FROM CHEST AND RESPIRATORY: (-) rales, (-) rhonchi, (-) wheezes; breath sounds equal bilaterally. Respirations even and nonlabored. HEART AND CARDIOVASCULAR: (-) irregularity ABDOMEN AND GI: Soft (-) distention (-) tenderness. EXTREMITIES: (+) diffuse tenderness to right hip, no ROM of hip secondary to pain, unable to ambulate (-) palpable deformity, (-) edema, (-) shortening or rotation (+) distal pulses and sensation. Knee, calf, and foot non-tender with full ROM. NEURO AND PSYCH: Mental status as above; (-) focal findings. Gait: steady. Speech: clear. - ECG O2 Sat by Pulse Oximetry: 99 (RA) Pulse Ox Interpretation: Normal Medical Decision Making Medical Decision Making: Time: 13:22 Impression: Acute on Chronic Hip Pain Plan: -- Toradol 30 mg IM --Ultram 100 mg PO (Not driving home) --X-Ray Hip 1420 Patient unable to go to XR at this time. Reports no improvement of pain and unable to lie down. Morphine 4mg IM and Benadryl 50mg IM ordered. Patient states that she can take morphine despite documented allergy of rash - as long as she is given it with Benadryl she claims she does not have a reaction. Hip Xray: FINDINGS: Bilateral axial joint space narrowing with diffuse femoral head and diffuse acetabular spurring. Joint space narrowing more advanced on right side. Sclerotic and subchondral cystic changes most pronounced right superolateral acetabulum. No fracture dislocation or lytic lesion. Bilateral femoral acetabular impingement concomitant morphology possible. Inferior lumbar spondylosis and facet hypertrophic arthrosis especially left L5- S1 facet similar. Sacroiliac and pubic symphyseal joints unremarkable. Bilateral hemipelvic phleboliths-similar. IMPRESSION: No interval fracture or subluxation. Bilateral advanced osteoarthrosis -as referenced above. Findings more accentuated on the right Other findings as above. 15:45 Patient is sleeping comfortably. 1615 Results discussed with patient with understanding. Patient reports she has an upcoming ortho appointment, however can recall the doctor's name or when. Patient able to ambulate in ED with cane. Patient states she is able to take a taxi home with her home improvement contractor at bedside. On re-evaluation, patient reports improvement of symptoms. On exam, patient remains AAOx3, in no acute distress. Lungs clear to auscultation, cardiac RRR, repeat neuro exam shows no focal findings. Vitals stable. Lab/Diagnostic results d/w the patient in great detail. Diagnosis of acute on chronic hip pain d/w the patient. Based on history, exam and diagnostic results, plan will be for outpatient follow up with pmd/pain management/ortho. Patient instructed to follow-up with pmd / referral provided / the clinic in 1- 2 days without fail. Advised to take medication as prescribed. Return to the emergency room at any time for any new or worsening symptoms. Patient states she fully agrees with and understands discharge instructions. States that she agrees with the plan and disposition. Verbalized and repeated discharge instructions and plan. I have given the patient opportunity to ask any additional questions. Scribe Attestation: Documented by Nicole Monzon, acting as a scribe for Kenia Spring PA-C. Provider Scribe Attestation: All medical record entries made by the Scribe were at my direction and personally dictated by me. I have reviewed the chart and agree that the record accurately reflects my personal performance of the history, physical exam, medical decision making, and the department course for this patient. I have also personally directed, reviewed, and agree with the discharge instructions and disposition. Disposition - Clinical Impression Clinical Impression: Chronic hip pain - Patient ED Disposition Is Patient to be Admitted: No Counseled Patient/Family Regarding: Studies Performed, Diagnosis, Need For Followup, Rx Given - Disposition Referrals: Joseph Campbell III, MD [Staff Provider] - Pablo Waters MD [Medical Doctor] - Disposition: Routine/Home Disposition Time: 16:20 Condition: STABLE Additional Instructions: The emergency medical care you received today was directed at your acute symptoms. If you were prescribed any medication, please fill it and take as directed. It may take several days for your symptoms to resolve. Return to the Emergency Department if your symptoms worsen, do not improve, or if you have any other problems. Please contact your doctor in 2 days for re-evaluation and follow up / or call one of the physicians/clinics you have been referred to that are listed on the Patient Visit Information form that is included in your discharge packet. Bring any paperwork you were given at discharge with you along with any medications you are taking to your follow up visit. Our treatment cannot replace ongoing medical care by a primary care provider (PCP) outside of the emergency department. Prescriptions: Meloxicam [Mobic] 15 mg PO DAILY #14 tab Instructions: Chronic Pain, Hip Pain Forms: [employer] (Yi) Print Language: [place] CITIZEN - POA Present On Arrival: None
[2018-04-10] MEDS ORDERED: Morphine 4 MG/ML VIAL IM STA (14:22)
[2018-04-10] MEDS ORDERED: DiphenhydrAMINE 50 mg/ml Inj IM STA (14:22)
[2018-04-10] MEDS ORDERED: DiphenhydrAMINE 50 mg/ml Inj ONE (14:27)
[2018-04-10] MEDS ORDERED: Morphine 4 MG/ML VIAL ONE (14:27)
--- NOTE | 2018-04-10 15:22 | RAD ---
Date of service: 04/10/2018 PROCEDURE: HISTORY: r/o fracture COMPARISON: 02/23/2018 TECHNIQUE: AP pelvis and frog's leg view. FINDINGS: Bilateral axial joint space narrowing with diffuse femoral head and diffuse acetabular spurring. Joint space narrowing more advanced on right side. Sclerotic and subchondral cystic changes most pronounced right superolateral acetabulum. No fracture dislocation or lytic lesion. Bilateral femoral acetabular impingement concomitant morphology possible. Inferior lumbar spondylosis and facet hypertrophic arthrosis especially left L5-S1 facet similar. Sacroiliac and pubic symphyseal joints unremarkable. Bilateral hemipelvic phleboliths-similar. IMPRESSION: No interval fracture or subluxation. Bilateral advanced osteoarthrosis -as referenced above. Findings more accentuated on the right Other findings as above.
== END 2018-04-10 16:40 | disposition home or self-care (01) ==
LOC: H.ER 12:53
DX: M25.551 Pain in right hip (principal); G89.29 Other chronic pain
CPT/HCPCS: 73503; 96372; 99283; J1200; J1885; J2270

== ENCOUNTER 2018-09-16 16:55 | Emergency (ER) | payer MEDICAID ==
[2018-09-16 16:55] VITALS: BMI 42.3
[2018-09-16 16:58] VITALS: BP 143/75; PULSE 87; RESP 16; TEMP 98; O2SAT 94
--- NOTE | 2018-09-16 17:26 | ED PDOC ---
Arrival/HPI - General Chief Complaint: Hip Pain Time Seen by Provider: 09/16/18 17:12 Past Medical History - Infectious Disease Hx of Infectious Diseases: None - Cardiac Hx Hypertension: Yes - Pulmonary Hx Asthma: Yes Hx Pneumonia: Yes - Neurological Hx Migraine: Yes - HEENT Hx HEENT Disorder: No - Renal Hx Renal Disorder: Yes Hx Kidney Stones: Yes (stent placement) - Endocrine/Metabolic Hx Diabetes Mellitus Type 2: Yes - Hematological/Oncological Hx Blood Disorders: No - Integumentary Hx Dermatological Disorder: No - Musculoskeletal/Rheumatological Hx Arthritis: Yes - Gastrointestinal Hx Gastrointestinal Disorders: Yes Hx Gastroesophageal Reflux: Yes Hx Nausea: Yes Hx Vomiting: Yes - Genitourinary/Gynecological Hx Genitourinary Disorders: Yes Hx Incontinence: Yes Hx Urinary Tract Infection: Yes - Psychiatric Hx Anxiety: Yes Hx Bipolar Disorder: Yes Hx Depression: Yes Hx Post Traumatic Stress Disorder: Yes Hx Substance Use: Yes (marijuana) - Surgical History Hx Hysterectomy: Yes Other/Comment: left foot surgery, left hand surgery - Anesthesia Hx Anesthesia: Yes Hx Anesthesia Reactions: No Hx Malignant Hyperthermia: No - Suicidal Assessment Feels Threatened In Home Enviroment: No Family/Social History Smoking Status: Never Smoked Hx Alcohol Use: No Hx Substance Use: Yes (marijuana) Allergies/Home Meds Allergies/Adverse Reactions: Allergies ciprofloxacin [From Cipro] Allergy (Verified 09/16/18 16:59) RASH ciprofloxacin HCl [From Cipro] Allergy (Verified 09/16/18 16:59) RASH hydromorphone HCl [From Dilaudid] Allergy (Verified 09/16/18 16:59) RASH lisinopril Allergy (Verified 09/16/18 16:59) RASH morphine Allergy (Verified 09/16/18 16:59) ITCHING nitroglycerin Allergy (Verified 09/16/18 16:59) RASH Penicillins Allergy (Verified 09/16/18 16:59) RASH Physical Exam Vital Signs Temp Pulse Resp BP Pulse Ox 09/16/18 16:57 98.0 F 87 16 143/75 94 L Disposition/Present on Arrival - Present on Arrival History of DVT/PE: No History of Uncontrolled Diabetes: No Urinary Catheter: No - Disposition
--- NOTE | 2018-09-16 17:29 | ED PDOC ---
Lower Extremity Pain/Injury Additional Complaint(s): 57 yo female patient with PMH of HTN, DM presents to the ED c/o R hip and L knee pain, patient is s/p fall last night. Patient fell from her bed, she endorses was trying get out of bed and tripped with sheets and fell over her R side hitting her R hip, she was able to get up with cane assistance and then hit her L knee, patient endorses she is supposed to get surgery for replacement on these both joints. Describes pain as 10/10, radiated to R leg and R back. Associated L knee swelling. She denies hit her head, no LOC, also denies tingling, numbness or weakness on legs bilaterally. No urinary sx or changes in BM. She was given morphine and tramadol w/o pain relief. PMD: Dr Fahad Montes <Beth Brock - Last Filed: 09/16/18 18:30> <Ivanna Venegas - Last Filed: 09/21/18 10:34> Time Seen by Provider: 09/16/18 17:12 Chief Complaint (Nursing): Hip Pain Past Medical History Vital Signs: Last Vital Signs Temp 98.0 F 09/16/18 16:57 Pulse 87 09/16/18 16:57 Resp 16 09/16/18 16:57 BP 143/75 09/16/18 16:57 Pulse Ox 94 L 09/16/18 16:57 - Medical History PMH: Anxiety, Arthritis, Asthma, Bipolar Disorder, Depression, Diabetes, HTN, Hypercholesterolemia, Kidney Stones (stent placement), Migraine, Pneumonia, Post Traumatic Stress Disorder, Chronic Kidney Disease Denies: HIV - Family History Family History: States: Unknown Family Hx - Immunization History Hx Tetanus Toxoid Vaccination: No Hx Influenza Vaccination: Yes Hx Pneumococcal Vaccination: Yes <Beth Brock - Last Filed: 09/16/18 18:30> Vital Signs: Last Vital Signs Temp 98.0 F 09/16/18 16:57 Pulse 87 09/16/18 16:57 Resp 16 09/16/18 16:57 BP 143/75 09/16/18 16:57 Pulse Ox 94 L 09/16/18 18:30 <Ivanna Venegas - Last Filed: 09/21/18 10:34> - Home Medications Home Medications: Ambulatory Orders Medication Instructions Recorded Albuterol HFA [Ventolin HFA 90 2 puff IH Q4H PRN #1 inhaler 09/21/17 mcg/actuation (8 g)] Aspirin [Ecotrin] 81 mg PO DAILY #1 tabec 09/21/17 Calcium/Vitamin D [Oyster Shell 1 tab PO DAILY #1 tab 09/21/17 Calcium/Vitamin D 500 mg-200 IU] Escitalopram [Lexapro] 20 mg PO HS #1 tab 09/21/17 Gabapentin [Neurontin] 600 mg PO HS #1 tab 09/21/17 Losartan [Cozaar] 25 mg PO DAILY #1 tab 09/21/17 Meclizine [Meclizine*] 25 mg PO Q6 PRN #20 tab 09/21/17 MetFORMIN [glucoPHAGE] 1,000 mg PO BID #1 tab 09/21/17 Multimineral/Multivitamin 1 tab PO DAILY tab 09/21/17 [Therapeutic-M Tab] Multivitamin [Multi-Vitamin Daily] 1 tab PO DAILY #1 tablet 09/21/17 [place]-3 Fatty Acids/Fish Oil [Fish 1,000 mg PO BID #1 capsule 09/21/17 Oil 1,000 mg Capsule] Omeprazole 20 mg PO BID #1 capsule. 09/21/17 Oxybutynin XL [Ditropan XL] 15 mg PO Q12H #1 ter 09/21/17 Simvastatin 20 mg PO QPM #1 tablet 09/21/17 Ziprasidone [Geodon Cap] 40 mg PO BID #1 cap 09/21/17 clonazePAM [Klonopin] 1 mg PO HS #1 tab 09/21/17 traZODone [Desyrel] 100 mg PO HS #1 tab 09/21/17 traMADol [Ultram] 50 mg PO BID PRN 3 Days tab 11/07/17 Nitrofurantoin Macrocrystals 100 mg PO BID #13 cap 02/23/18 [Macrobid] Meloxicam [Mobic] 15 mg PO DAILY #14 tab 04/10/18 Lidocaine 5% [Lidoderm] 1 ea TD DAILY PRN #30 patch 09/16/18 Naproxen [Naprosyn] 1 tab PO BID PRN #30 tab 09/16/18 traMADol [Ultram] 50 mg PO TID #15 tab 09/16/18 - Allergies Allergies/Adverse Reactions: Allergies Allergy/AdvReac Type Severity Reaction Status Date / Time ciprofloxacin [From Cipro] Allergy RASH Verified 09/16/18 16:59 ciprofloxacin HCl Allergy RASH Verified 09/16/18 16:59 [From Cipro] hydromorphone HCl Allergy RASH Verified 09/16/18 16:59 [From Dilaudid] lisinopril Allergy RASH Verified 09/16/18 16:59 morphine Allergy ITCHING Verified 09/16/18 16:59 nitroglycerin Allergy RASH Verified 09/16/18 16:59 Penicillins Allergy RASH Verified 09/16/18 16:59 Review of Systems Constitutional: Negative for: Fever, Chills Cardiovascular: Negative for: Chest Pain, Palpitations Respiratory: Negative for: Cough, Shortness of Breath Gastrointestinal: Negative for: Vomiting, Abdominal Pain, Diarrhea, Constipation Genitourinary Female: Negative for: Dysuria, Frequency, Incontinence Musculoskeletal: Positive for: Back Pain, Other (Hip pain and Knee pain). Negative for: Neck Pain, Shoulder Pain <Beth Brock - Last Filed: 09/16/18 18:30> Physical Exam - Reviewed Nursing Documentation Reviewed: Yes Vital Signs Reviewed: Yes - Physical Exam Appears: Positive for: In Acute Distress (due to pain) Head Exam: Positive for: NORMAL INSPECTION Skin: Positive for: Warm, Dry. Negative for: Rash Eye Exam: Negative for: EOMI, PERRL Neck: Positive for: Painless ROM, Supple Cardiovascular/Chest: Positive for: Regular Rate, Rhythm. Negative for: Murmur, Tachycardia Respiratory: Positive for: Normal Breath Sounds. Negative for: Crackles, Rhonchi, Wheezing Gastrointestinal/Abdominal: Positive for: Bowel Sounds, Soft. Negative for: Tenderness, Distended Back: Positive for: Decreased ROM. Negative for: Vertebral Tenderness Extremity: Positive for: Other (R hip tenderness, no bruises or deformity noted, no external or internal leg rotation, leg rolling positive. 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 <Beth Brock - Last Filed: 09/16/18 18:30> - ECG O2 Sat by Pulse Oximetry: 94 <Beth Brock - Last Filed: 09/16/18 18:30> Medical Decision Making Medical Decision Making: Initial Plan: -- Hip and Knee X rays -- morphine IM once -- Toradol IM once -- Re eval 1814: awaiting on x rays Case endorsed to Dr Venegas <Beth Brock - Last Filed: 09/16/18 18:30> Disposition - Patient ED Disposition Is Patient to be Admitted: Transfer of Care - Disposition Disposition Time: 19:00 <Beth Brock - Last Filed: 09/16/18 18:30> Counseled Patient/Family Regarding: Studies Performed, Diagnosis, Need For Followup - Disposition Disposition: Routine/Home <Ivanna Venegas - Last Filed: 09/21/18 10:34> - Clinical Impression Clinical Impression: Hip pain, Knee pain, left, Degenerative joint disease (DJD) of hip, DJD (degenerative joint disease) of knee - Disposition Condition: STABLE Additional Instructions: FOLLOWUP WITH YOUR PMD AND ORTHOPEDIST SOON POSSIBLE FOR FURTHER MANAGEMENT USE KNEE IMMOBILIZER SOON YOU GET HOME TO PROTECT YOUR KNEE Prescriptions: Lidocaine 5% [Lidoderm] 1 ea TD DAILY PRN #30 patch PRN Reason: PAIN Naproxen [Naprosyn] 1 tab PO BID PRN #30 tab PRN Reason: Pain traMADol [Ultram] 50 mg PO TID #15 tab Instructions: Osteoarthritis (DC), Chronic Knee Pain (DC), Hip Pain in Older People - 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 (Correction: Pt was under my care during entire ER stay and was not transferred to me by the resident) <Ivanna Venegas - Last Filed: 09/21/18 10:34>
[2018-09-16] MEDS ORDERED: Morphine 4 MG/ML VIAL ONE (18:07)
[2018-09-16] MEDS ORDERED: Morphine 4 MG/ML VIAL IM STA (18:15)
--- NOTE | 2018-09-17 08:30 | RAD ---
Date of service: 09/16/2018 PROCEDURE: Left Knee Radiographs. HISTORY: Pain. COMPARISON: None. TECHNIQUE: 2 views obtained. FINDINGS: BONES: No acute fracture or destructive bony lesion identified. JOINTS: No subluxation or dislocation. Gross joint space narrowing, articular cortical sclerosis and osteophyte development are appreciate the patellofemoral and lateral greater than medial femorotibial compartments compatible with advanced osteoarthritis. JOINT EFFUSION: None. OTHER FINDINGS: None. IMPRESSION: Advanced osteoarthritis, tricompartmental. No acute fracture or dislocation left knee.
--- NOTE | 2018-09-17 08:34 | RAD ---
Date of service: 09/16/2018 PROCEDURE: RIGHT HIP WITH PELVIS RADIOGRAPHS HISTORY: RIGHT hip pain s/p fall COMPARISON: Right hip with pelvis radiographs 04/10/2018. TECHNIQUE: Four views submitted. FINDINGS: No acute fracture dislocation is appreciate the right hip joint and there is no fracture through the pelvic ring either. The examination appears stable in the interval with advanced osteoarthritis identified at the bilateral hip joints and moderate osteoarthritis at the bilateral sacroiliac joints. Osteoarthritis has developed greater the right than left hip joints. Increased osteophyte development is seen related to the bilateral acetabular components of both hips. Pubic symphysis is intact as well as remaining pubic bony anatomy. Iliac bones are stable. Midline and left sacrum unremarkable the right somewhat obscured by overlying bowel. Incidental advanced inferior lumbar facet joint degenerative arthropathy noted. Soft tissues are remarkable for multiple small phlebolith like calcifications scattered throughout the inferior pelvis soft tissues once again. IMPRESSION: No interval acute fracture or dislocation right hip joint. Pelvic ring remains intact with no fracture appreciated overall. Advanced osteoarthritis is appreciated greater the right than left hip joints. Moderate bilateral sacroiliac joint degenerative changes noted.
== END 2018-09-16 20:08 | disposition home or self-care (01) ==
LOC: H.ER 16:55
DX: M25.552 Pain in left hip (principal); M25.562 Pain in left knee; M16.12 Unilateral primary osteoarthritis, left hip; M17.12 Unilateral primary osteoarthritis, left knee; E78.00 Pure hypercholesterolemia, unspecified; F31.9 Bipolar disorder, unspecified; F43.10 Post-traumatic stress disorder, unspecified; I12.9 Hypertensive chronic kidney disease with stage 1 through stage 4 chronic kidney disease, or unspecified chronic kidney disease; Z79.84 Long term (current) use of oral hypoglycemic drugs; Z88.0 Allergy status to penicillin; Z88.5 Allergy status to narcotic agent
CPT/HCPCS: 73502; 73562; 82948; 96372; 99284; J1885; J2270

== ENCOUNTER 2018-11-05 11:31 | Observation (INO) | payer MEDICAID ==
[2018-11-05 11:37] VITALS: BMI 39.0
--- NOTE | 2018-11-05 13:39 | RAD ---
Date of service: 11/05/2018 HISTORY: SOB COMPARISON: 09/20/2017 TECHNIQUE: 1 view obtained. FINDINGS: LUNGS: No active pulmonary disease. PLEURA: No significant pleural effusion identified, no pneumothorax apparent. CARDIOVASCULAR: No aortic atherosclerotic calcification present. Normal cardiac size. No pulmonary vascular congestion. OSSEOUS STRUCTURES: No significant abnormalities. VISUALIZED UPPER ABDOMEN: Normal. OTHER FINDINGS: The asymmetrical elevation the right hemidiaphragm is stable appearing IMPRESSION: No active disease. No interval pathology noted.
[2018-11-05 14:17] LABS: BASO # 0.1 K/uL (0.0-0.2); BASO % 0.9 % (0.0-2.0); EOS # 0.2 K/uL (0.0-0.7); EOS % 2.1 % (0.0-4.0); HEMOGLOBIN 12.2 g/dL (12.0-16.0); LYMPH # 1.9 K/uL (1.0-4.3); LYMPH % 26.4 % (20.0-40.0); MEAN CELL VOLUME 75.3 fl (81.0-99.0); MEAN CORPUSCULAR HEMOGLOBIN 23.9 pg (27.0-31.0); MEAN CORPUSCULAR HGB CONC 31.8 g/dL (33.0-37.0); MEAN PLATELET VOLUME 9.3 fl (7.2-11.7); MONO # 0.4 K/uL (0.0-0.8); MONO % 5.3 % (0.0-10.0); NEUT # 4.8 K/uL (1.8-7.0); NEUT % 65.3 % (50.0-75.0); RBC 5.1 Mil/uL (3.80-5.20); RED CELL DISTRIBUTION WIDTH 19.2 % (11.5-14.5); WHITE BLOOD COUNT 7.3 K/uL (4.8-10.8)
[2018-11-05 14:44] LABS: ALB/GLOB RATIO 1.3 (1.0-2.1); ALT/SGPT 21 U/L (9-52); AST/SGOT 21 U/L (14-36); BLOOD UREA NITROGEN 28 mg/dl (7-17); CALCIUM 9.8 mg/dL (8.4-10.2); GFR NON-AFRICAN AMERICAN 51
[2018-11-05 14:56] LABS: B-TYPE NATRIURETIC PEPTIDE 258 pg/ml (0-900)
[2018-11-05] MEDS ORDERED: Sodium Chloride 0.9% 1,000 ML IV STA (16:33)
--- NOTE | 2018-11-05 16:41 | ED PDOC ---
HPI: Chest Pain Time Seen by Provider: 11/05/18 12:11 Chief Complaint (Nursing): Chest Pain Chief Complaint (Provider): chest pain History Per: Patient Quality: Sharp Modifying Factors: None Exacerbating Factors: None Additional History Per: Patient, Prior Records Additional Complaint(s): 58yo female c/o chest pain started at rest while watching TV. Denies fever, cough, SOB, sweating or syncope. Has multiple medical problems, reports compliance w medications. States had cardiac cath late [address] Garvin, takes ASA daily but not plavix or other blood thinners. She does not believe she had any stents. Past Medical History Reviewed: Historical Data, Nursing Documentation, Vital Signs Vital Signs: Last Vital Signs Temp 98.2 F 11/05/18 11:37 Pulse 90 11/05/18 11:37 Resp 17 11/05/18 11:37 BP 101/63 11/05/18 11:37 Pulse Ox 98 11/05/18 11:37 Primary Care Provider: Doctor,Conversion - Medical History PMH: Anxiety, Arthritis, Asthma, Bipolar Disorder, Depression, Diabetes, HTN, Hypercholesterolemia, Kidney Stones (stent placement), Migraine, Pneumonia, Post Traumatic Stress Disorder, Chronic Kidney Disease Denies: HIV - Family History Family History: States: Unknown Family Hx - Social History Current smoker - smoking cessation education provided: No - Immunization History Hx Tetanus Toxoid Vaccination: No Hx Influenza Vaccination: Yes Hx Pneumococcal Vaccination: Yes - Home Medications Home Medications: Ambulatory Orders Medication Instructions Recorded Escitalopram [Lexapro] 20 mg PO HS #1 tab 09/21/17 Gabapentin [Neurontin] 600 mg PO HS #1 tab 09/21/17 MetFORMIN [glucoPHAGE] 1,000 mg PO BID #1 tab 09/21/17 Simvastatin 20 mg PO QPM #1 tablet 09/21/17 clonazePAM [Klonopin] 1 mg PO HS #1 tab 09/21/17 traZODone [Desyrel] 100 mg PO HS #1 tab 09/21/17 Oxybutynin Chloride [Oxybutynin 2 tab PO DAILY 11/05/18 Chloride ER] Potassium Gluconate [Potassium] 11/05/18 Albuterol HFA [Ventolin HFA 90 2 puff IH Q4H PRN inhaler 11/06/18 mcg/actuation (8 g)] Calcium/Vitamin D [Oyster Shell 1 tab PO DAILY tab 11/06/18 Calcium/Vitamin D 500 mg-200 IU] Clopidogrel [Plavix] 75 mg PO DAILY tab 11/06/18 Multimineral/Multivitamin 1 tab PO DAILY tab 11/06/18 [Therapeutic-M Tab] Olmesartan Medoxomil [Benicar] 5 mg PO DAILY 11/06/18 [place]-3 Fatty Acids/Fish Oil [Fish 1 cap PO HS 11/06/18 Oil 1,000 mg Capsule] [id number] Ethyl Esters 1 GM 1 gm PO BID sgl 11/06/18 [Lovaza] Omeprazole Magnesium [Prilosec] 4 tab PO DAILY 11/06/18 Oxybutynin [Ditropan Tab] 5 mg PO QID tab 11/06/18 Topiramate [Topamax] 50 mg PO DAILY 11/06/18 Ziprasidone HCl 60 mg PO BID 11/06/18 Ziprasidone [Geodon Cap] 40 mg PO BID cap 11/06/18 - Allergies Allergies/Adverse Reactions: Allergies Allergy/AdvReac Type Severity Reaction Status Date / Time ciprofloxacin [From Cipro] Allergy RASH Verified 09/16/18 16:59 ciprofloxacin HCl Allergy RASH Verified 09/16/18 16:59 [From Cipro] hydromorphone HCl Allergy RASH Verified 09/16/18 16:59 [From Dilaudid] lisinopril Allergy RASH Verified 09/16/18 16:59 morphine Allergy ITCHING Verified 09/16/18 16:59 nitroglycerin Allergy RASH Verified 09/16/18 16:59 Penicillins Allergy RASH Verified 09/16/18 16:59 Review of Systems Constitutional: Negative for: Fever Cardiovascular: Positive for: Chest Pain, Palpitations Respiratory: Positive for: Shortness of Breath Genitourinary Female: Negative for: Frequency Musculoskeletal: Positive for: Back Pain. Negative for: Neck Pain Skin: Negative for: Rash Neurological: Negative for: Weakness, Numbness Psych: Negative for: Psychosis, Suicidal ideation Physical Exam - Reviewed Nursing Documentation Reviewed: Yes Vital Signs Reviewed: Yes - Physical Exam Appears: Positive for: Non-toxic, No Acute Distress Head Exam: Positive for: ATRAUMATIC, NORMAL INSPECTION, NORMOCEPHALIC Skin: Positive for: Normal Color, Warm, DRY Eye Exam: Positive for: EOMI, Normal appearance, PERRL ENT: Positive for: Normal ENT Inspection Neck: Positive for: Normal, Painless ROM Cardiovascular/Chest: Positive for: Regular Rate, Rhythm Respiratory: Positive for: CNT, Normal Breath Sounds Gastrointestinal/Abdominal: Positive for: Soft. Negative for: Tenderness Back: Positive for: Normal Inspection Extremity: Positive for: Normal ROM Neurological/Psych: Positive for: Awake, Alert, Normal Tone, Symmetric/Intact Strength - Laboratory Results Result Diagrams: 11/05/18 14:00 11/06/18 05:40 Lab Results: Troponin I < 0.0120 ng/mL (0.00-0.120) 11/05/18 14:00 NT-Pro-B Natriuret Pep 258 pg/ml (0-900) 11/05/18 14:00 Total Bilirubin 0.4 mg/dl (0.2-1.3) 11/05/18 14:00 AST 21 U/L (14-36) 11/05/18 14:00 ALT 21 U/L (9-52) 11/05/18 14:00 Alkaline Phosphatase 76 U/L (38-126) 11/05/18 14:00 Total Protein 7.0 G/DL (6.3-8.2) 11/05/18 14:00 Albumin 4.0 g/dL (3.5-5.0) 11/05/18 14:00 Globulin 3.0 gm/dL (2.2-3.9) 11/05/18 14:00 Albumin/Globulin Ratio 1.3 (1.0-2.1) 11/05/18 14:00 - ECG ECG: Positive for: Interpreted By Fl ECG Rhythm: Positive for: Sinus Rhythm, ST/T Changes (compared to prior EKG +anterior lateral changes) Rate: 94 O2 Sat by Pulse Oximetry: 98 Pulse Ox Interpretation: Normal - Radiology X-Ray: Read By Radiologist X-Ray Interpretation: No Acute Disease Medical Decision Making Medical Decision Making: discussed case w/ Dr Garvin who states cath was normal in May however unclear why EKG changes have developed Admit Obs to hospitalist for r/o ACS. PMD TXC Disposition - Clinical Impression Clinical Impression: Acute chest pain, Acute electrocardiogram changes - Patient ED Disposition Is Patient to be Admitted: Yes - Disposition Disposition Time: 15:00 Condition: GOOD - Pt Status Changed To: Hospital Disposition Of: Observation
[2018-11-05 17:03] LABS: BARBITURATES, UR NEGATIVE (NEGATIVE); BENZODIAZEPINES, UR NEGATIVE (NEGATIVE); OPIATES, UR NEGATIVE (NEGATIVE); PHENCYCLIDINE, UR NEGATIVE (NEGATIVE)
--- NOTE | 2018-11-05 17:30 | CARD ---
APPROVED REPORT Date of service: 11/05/2018 EKG Measurement Heart [id number] <Conclusion> Normal sinus rhythm ST & T wave abnormality, consider anterolateral ischemia Abnormal ECG
[2018-11-05] MEDS ORDERED: Albuterol HFA 90 mcg/actuation (8 g) IH PRN (19:10)
[2018-11-05] MEDS ORDERED: Lidocaine 5% Patch TD PRN (19:10)
[2018-11-05] MEDS ORDERED: Sodium Chloride 0.9% 1,000 ML IV SCH (19:15)
[2018-11-05] MEDS ORDERED: Dextrose 50% SYRINGE Inj (50 ml) IV PRN (19:32)
[2018-11-05] MEDS ORDERED: Glucagon Recombinant 1 mg Inj IM PRN (19:32)
--- NOTE | 2018-11-05 19:38 | CP.PCM.HP ---
History of Present Illness - History of Present Illness History of Present Illness: CC: chest pain HPI: HTN, NIDDM, asthma, incontinence, PTSD, anxiety, depression presented to the ED for chest pain. Patient states that she was at home sitting down when all of a sudden she started having left sided chest pain. Pain radiated to the L arm, associated with dizziness and mild dyspnea. She states that the pain was pressure like in nature, and has had similar pain in the past during an anxiety episode, but this was somewhat different. Denies palpitations, abdominal pain, n/v, weight changes. Of note, patient had a cardiac cath 05/[address] Garvin with normal vasculature in prep for gastric bypass 09/2018: gastric bypass PMD: Dr. Claros, [place] PMHx: HTN, DM, Arthritis, Asthma, incontinence, PTSD, anxiety, depression, renal stones SurgHx: gastric bypass, Hyterectomy, Lipoma in thighs, Hand, Foot FHx: Dad passed from [place]; Mom passed from cerebral hemorrhage; Grandmother: stroke; SHx: Denies smoking or alcohol; endorsing occasional Marijuana use Allergies: cirprofloxacin, morphine, dilaudid, lisinopril--generalized itching ECW chart reviewed for meds, Uses [facility] Present on Admission - Present on Admission Any Indicators Present on Admission: No Review of Systems - Constitutional Constitutional: absent: Chills, Fever - Cardiovascular Cardiovascular: Chest Pain, Dyspnea. absent: Palpitations - Respiratory Respiratory: absent: Cough, Dyspnea - Gastrointestinal Gastrointestinal: absent: Abdominal Pain - Genitourinary Genitourinary: absent: Dysuria - Neurological Neurological: Dizziness Past Patient History - Infectious Disease Hx of Infectious Diseases: None - Past Medical History & Family History Past Medical History?: Yes - Past Social History Smoking Status: Never Smoked Alcohol: None Drugs: Cannabis - CARDIAC Hx Hypercholesterolemia: Yes Hx Hypertension: Yes - PULMONARY Hx Asthma: Yes Hx Pneumonia: Yes - NEUROLOGICAL Hx Migraine: Yes - HEENT Hx HEENT Problems: No - RENAL Hx Chronic Kidney Disease: Yes Hx Kidney Stones: Yes (stent placement) - ENDOCRINE/METABOLIC Hx Endocrine Disorders: Yes Hx Diabetes Mellitus Type 2: Yes - HEMATOLOGICAL/ONCOLOGICAL Hx Human Immunodeficiency Virus (HIV): No - INTEGUMENTARY Hx Dermatological Problems: No - MUSCULOSKELETAL/RHEUMATOLOGICAL Hx Arthritis: Yes - GASTROINTESTINAL Hx Gastrointestinal Disorders: Yes Hx Gastroesophageal Reflux: Yes Hx Nausea: Yes Hx Vomiting: Yes - GENITOURINARY/GYNECOLOGICAL Hx Genitourinary Disorders: Yes Hx Incontinence: Yes Hx Urinary Tract Infection: Yes - PSYCHIATRIC Hx Anxiety: Yes Hx Bipolar Disorder: Yes Hx Depression: Yes Hx Post Traumatic Stress Disorder: Yes - SURGICAL HISTORY Hx Surgeries: Yes Hx Hysterectomy: Yes Other/Comment: left foot surgery, left hand surgery - ANESTHESIA Hx Anesthesia: Yes Hx Anesthesia Reactions: No Hx Malignant Hyperthermia: No Meds Allergies/Adverse Reactions: Allergies Allergy/AdvReac Type Severity Reaction Status Date / Time ciprofloxacin [From Cipro] Allergy RASH Verified 09/16/18 16:59 ciprofloxacin HCl Allergy RASH Verified 09/16/18 16:59 [From Cipro] hydromorphone HCl Allergy RASH Verified 09/16/18 16:59 [From Dilaudid] lisinopril Allergy RASH Verified 09/16/18 16:59 morphine Allergy ITCHING Verified 09/16/18 16:59 nitroglycerin Allergy RASH Verified 09/16/18 16:59 Penicillins Allergy RASH Verified 09/16/18 16:59 Results - Vital Signs Recent Vital Signs: Last Vital Signs Temp 98.2 F 11/05/18 11:37 Pulse 90 11/05/18 11:37 Resp 17 11/05/18 11:37 BP 101/63 11/05/18 11:37 Pulse Ox 98 11/05/18 16:40 - Labs Result Diagrams: 11/05/18 14:00 11/05/18 14:00 Labs: Laboratory Results - last 24 hr 11/05/18 11/05/18 11/05/18 14:00 14:00 16:25 WBC 7.3 RBC 5.10 Hgb 12.2 Hct 38.4 MCV 75.3 L MCH 23.9 L MCHC 31.8 L RDW 19.2 H Plt Count 235 MPV 9.3 Neut % (Auto) 65.3 Lymph % (Auto) 26.4 [place] % (Auto) 5.3 Eos % (Auto) 2.1 Baso % (Auto) 0.9 Neut # (Auto) 4.8 Lymph # (Auto) 1.9 [place] # (Auto) 0.4 Eos # (Auto) 0.2 Baso # (Auto) 0.1 Sodium 141 Potassium 4.0 Chloride 112 H Carbon Dioxide 17 L Anion Gap 16 BUN 28 H Creatinine 1.1 Est GFR ( Amer) > 60 Est GFR (Non-Af Amer) 51 Random Glucose 95 Calcium 9.8 Total Bilirubin 0.4 AST 21 ALT 21 Alkaline Phosphatase 76 Troponin I < 0.0120 NT-Pro-B Natriuret Pep 258 Total Protein 7.0 Albumin 4.0 Globulin 3.0 Albumin/Globulin Ratio 1.3 Urine Opiates Screen Negative Urine Methadone Screen Negative Ur Barbiturates Screen Negative Ur Phencyclidine Scrn Negative Ur Amphetamines Screen Negative U Benzodiazepines Scrn Negative U Oth Cocaine Metabols Negative U Cannabinoids Screen Negative Assessment & Plan - Assessment and Plan (Free Text) Assessment: Assessment/Plan: 58 YO Female with PMHx HTN, NIDDM, asthma, incontinence, PTSD, anxiety, depression is admitted for chest pain, r/o ACS. Chest pain -given recent cardiac cath with no findings less likely to be cardiac but cannot rule out -EKG with new ST and T wave changes in the anterolateral leads when compared to previous EKG 01/2018. -trop x 1 neg -cardaic cath 05/2018; no acute findings -echo 03/2017; normal echo with EF 65% -c/t to follow trops, repeat EKG in AM -c/w asa and statin -pain management as needed Dehydration -elevated BUN -c.w IV fluids -encourage PO hydration -follow up in AM HTN -chronic -c.w home meds NIDDM -hbA1c 6.2 (11/2017) -c/w metformin -insulin/hypoglycemia protocol Asthma -controlled, c.w home meds PTSD/Anxiety/Depression -c.w home meds DVT prolx -Lovenox SC
[2018-11-05] MEDS: Insulin Regular 100 units/ml SC SCH (23:07)
[2018-11-06 06:16] LABS: BLOOD UREA NITROGEN 27 mg/dl (7-17); CALCIUM 9.3 mg/dL (8.4-10.2); GFR NON-AFRICAN AMERICAN 57
[2018-11-06 08:35] VITALS: RESP 18
[2018-11-06] MEDS: Insulin Regular 100 units/ml SC SCH (08:55)
[2018-11-06] MEDS ORDERED: Pantoprazole 40 mg EC Tab PO SCH (09:00)
[2018-11-06] MEDS ORDERED: Calcium-Vit D 500 mg-200 Units Tab UD PO SCH (09:00)
[2018-11-06] MEDS ORDERED: Omega-3-Acid Ethyl Esters 1 GM Cap PO SCH (09:00)
[2018-11-06] MEDS ORDERED: Patient's Own Med (Multivitamin [Multi-Vitamin Daily] 1 TAB) PO SCH (09:00)
[2018-11-06] MEDS ORDERED: Multivitamin With Minerals Tab PO SCH (09:00)
[2018-11-06] MEDS ORDERED: Enoxaparin 40 mg Syringe SC SCH (09:00)
--- NOTE | 2018-11-06 09:59 | CP.PCM.DIS ---
<Linda Mendez - Last Filed: 11/06/18 11:04> Provider - Provider Date of Admission: 11/05/18 17:10 Attending physician: Fausto Brantley MD Time Spent in preparation of Discharge (in minutes): 30 Diagnosis - Discharge Diagnosis (1) Chest pain at rest Status: Acute Hospital Course - Lab Results Lab Results: Most Recent Lab Values WBC 7.3 K/uL (4.8-10.8) 11/05/18 14:00 RBC 5.10 Mil/uL (3.80-5.20) 11/05/18 14:00 Hgb 12.2 g/dL (12.0-16.0) 11/05/18 14:00 Hct 38.4 % (34.0-47.0) 11/05/18 14:00 MCV 75.3 fl (81.0-99.0) L 11/05/18 14:00 MCH 23.9 pg (27.0-31.0) L 11/05/18 14:00 MCHC 31.8 g/dL (33.0-37.0) L 11/05/18 14:00 RDW 19.2 % (11.5-14.5) H 11/05/18 14:00 Plt Count 235 K/uL (130-400) 11/05/18 14:00 MPV 9.3 fl (7.2-11.7) 11/05/18 14:00 Neut % (Auto) 65.3 % (50.0-75.0) 11/05/18 14:00 Lymph % (Auto) 26.4 % (20.0-40.0) 11/05/18 14:00 [place] % (Auto) 5.3 % (0.0-10.0) 11/05/18 14:00 Eos % (Auto) 2.1 % (0.0-4.0) 11/05/18 14:00 Baso % (Auto) 0.9 % (0.0-2.0) 11/05/18 14:00 Neut # (Auto) 4.8 K/uL (1.8-7.0) 11/05/18 14:00 Lymph # (Auto) 1.9 K/uL (1.0-4.3) 11/05/18 14:00 [place] # (Auto) 0.4 K/uL (0.0-0.8) 11/05/18 14:00 Eos # (Auto) 0.2 K/uL (0.0-0.7) 11/05/18 14:00 Baso # (Auto) 0.1 K/uL (0.0-0.2) 11/05/18 14:00 Sodium 140 mmol/l (132-148) 11/06/18 05:40 Potassium 3.6 MMOL/L (3.6-5.0) 11/06/18 05:40 Chloride 110 mmol/L (98-107) H 11/06/18 05:40 Carbon Dioxide 19 mmol/L (22-30) L 11/06/18 05:40 Anion Gap 15 (10-20) 11/06/18 05:40 BUN 27 mg/dl (7-17) H 11/06/18 05:40 Creatinine 1.0 mg/dl (0.7-1.2) 11/06/18 05:40 Est GFR ( Amer) > 60 11/06/18 05:40 Est GFR (Non-Af Amer) 57 11/06/18 05:40 POC Glucose (mg/dL) 89 mg/dL (65-110) 11/06/18 05:34 Random Glucose 85 mg/dL (65-105) 11/06/18 05:40 Calcium 9.3 mg/dL (8.4-10.2) 11/06/18 05:40 Total Bilirubin 0.4 mg/dl (0.2-1.3) 11/05/18 14:00 AST 21 U/L (14-36) 11/05/18 14:00 ALT 21 U/L (9-52) 11/05/18 14:00 Alkaline Phosphatase 76 U/L (38-126) 11/05/18 14:00 Troponin I < 0.0120 ng/mL (0.00-0.120) 11/06/18 05:00 NT-Pro-B Natriuret Pep 258 pg/ml (0-900) 11/05/18 14:00 Total Protein 7.0 G/DL (6.3-8.2) 11/05/18 14:00 Albumin 4.0 g/dL (3.5-5.0) 11/05/18 14:00 Globulin 3.0 gm/dL (2.2-3.9) 11/05/18 14:00 Albumin/Globulin Ratio 1.3 (1.0-2.1) 11/05/18 14:00 Urine Opiates Screen Negative (NEGATIVE) 11/05/18 16:25 Urine Methadone Screen Negative (NEGATIVE) 11/05/18 16:25 Ur Barbiturates Screen Negative (NEGATIVE) 11/05/18 16:25 Ur Phencyclidine Scrn Negative (NEGATIVE) 11/05/18 16:25 Ur Amphetamines Screen Negative (NEGATIVE) 11/05/18 16:25 U Benzodiazepines Scrn Negative (NEGATIVE) 11/05/18 16:25 U Oth Cocaine Metabols Negative (NEGATIVE) 11/05/18 16:25 U Cannabinoids Screen Negative (NEGATIVE) 11/05/18 16:25 - Hospital Course Hospital Course: 58 yo female with history of HTN, DM type II, dyslipidemia, anxiety, depression, PTSD , obesity BMI 39 s/p gastric Bypass surgery on September presented to ER for left sided pressure like chest pain radiating to left arm admitted for rule out ACS. EKG demonstrated new ST wave inversions on shailesh lateral leads. EKG repeated next day demonstrated next day. Troponins x3 negative. Dr. Garvin , her delimer were informed of the findings. Patient is to follow up with him outpatient after discharge. Cardiac Cath in April demonstrated normal coronaries. Patient started on statin and Asa and to continue as outpatient. Discharge Exam - Eye Exam Eye Exam: Normal appearance - ENT Exam ENT Exam: Mucous Membranes Moist - Respiratory Exam Respiratory Exam: Clear to PA & Lateral, NORMAL BREATHING PATTERN, UNREMARKABLE. absent: Accessory Muscle Use, Chest Wall Tenderness, Decreased Breath Sounds, Prolonged Expiratory Phase, Rales, Rhonchi, Wheezes, Respiratory Distress, Stridor - Cardiovascular Exam Cardiovascular Exam: +S1, +S2 - GI/Abdominal Exam GI & Abdominal Exam: Normal Bowel Sounds, Soft, Unremarkable. absent: Diminished Bowel Sounds, Distended, Firm, Rebound, Rigid, Tenderness - Extremities Exam Extremities exam: normal capillary refill, normal inspection, pedal pulses present - Neurological Exam Neurological exam: Alert, Oriented x3 - Psychiatric Exam Psychiatric exam: Normal Affect, Normal Mood - Skin Skin Exam: Dry, Intact, Normal Color, Warm Discharge Plan - Follow Up Plan Condition: GOOD Disposition: HOME/ ROUTINE Patient education suggested?: Yes Instructions: Chest Pain (DC) Additional Instructions: Follow up with Dr. Garvin outpatient Follow up with on sun11/13/18 1:40pm Referrals: [facility] [Outside] Rosmery Garvin MD [Staff Provider] - <Michaela De Jesus - Last Filed: 11/06/18 15:21> Provider - Provider Date of Admission: 11/05/18 17:10 Attending physician: Fausto Brantley MD Hospital Course - Lab Results Lab Results: Most Recent Lab Values WBC 7.3 K/uL (4.8-10.8) 11/05/18 14:00 RBC 5.10 Mil/uL (3.80-5.20) 11/05/18 14:00 Hgb 12.2 g/dL (12.0-16.0) 11/05/18 14:00 Hct 38.4 % (34.0-47.0) 11/05/18 14:00 MCV 75.3 fl (81.0-99.0) L 11/05/18 14:00 MCH 23.9 pg (27.0-31.0) L 11/05/18 14:00 MCHC 31.8 g/dL (33.0-37.0) L 11/05/18 14:00 RDW 19.2 % (11.5-14.5) H 11/05/18 14:00 Plt Count 235 K/uL (130-400) 11/05/18 14:00 MPV 9.3 fl (7.2-11.7) 11/05/18 14:00 Neut % (Auto) 65.3 % (50.0-75.0) 11/05/18 14:00 Lymph % (Auto) 26.4 % (20.0-40.0) 11/05/18 14:00 [place] % (Auto) 5.3 % (0.0-10.0) 11/05/18 14:00 Eos % (Auto) 2.1 % (0.0-4.0) 11/05/18 14:00 Baso % (Auto) 0.9 % (0.0-2.0) 11/05/18 14:00 Neut # (Auto) 4.8 K/uL (1.8-7.0) 11/05/18 14:00 Lymph # (Auto) 1.9 K/uL (1.0-4.3) 11/05/18 14:00 [place] # (Auto) 0.4 K/uL (0.0-0.8) 11/05/18 14:00 Eos # (Auto) 0.2 K/uL (0.0-0.7) 11/05/18 14:00 Baso # (Auto) 0.1 K/uL (0.0-0.2) 11/05/18 14:00 Sodium 140 mmol/l (132-148) 11/06/18 05:40 Potassium 3.6 MMOL/L (3.6-5.0) 11/06/18 05:40 Chloride 110 mmol/L (98-107) H 11/06/18 05:40 Carbon Dioxide 19 mmol/L (22-30) L 11/06/18 05:40 Anion Gap 15 (10-20) 11/06/18 05:40 BUN 27 mg/dl (7-17) H 11/06/18 05:40 Creatinine 1.0 mg/dl (0.7-1.2) 11/06/18 05:40 Est GFR ( Amer) > 60 11/06/18 05:40 Est GFR (Non-Af Amer) 57 11/06/18 05:40 POC Glucose (mg/dL) 161 mg/dL (65-110) H 11/06/18 11:15 Random Glucose 85 mg/dL (65-105) 11/06/18 05:40 Calcium 9.3 mg/dL (8.4-10.2) 11/06/18 05:40 Total Bilirubin 0.4 mg/dl (0.2-1.3) 11/05/18 14:00 AST 21 U/L (14-36) 11/05/18 14:00 ALT 21 U/L (9-52) 11/05/18 14:00 Alkaline Phosphatase 76 U/L (38-126) 11/05/18 14:00 Troponin I < 0.0120 ng/mL (0.00-0.120) 11/06/18 05:00 NT-Pro-B Natriuret Pep 258 pg/ml (0-900) 11/05/18 14:00 Total Protein 7.0 G/DL (6.3-8.2) 11/05/18 14:00 Albumin 4.0 g/dL (3.5-5.0) 11/05/18 14:00 Globulin 3.0 gm/dL (2.2-3.9) 11/05/18 14:00 Albumin/Globulin Ratio 1.3 (1.0-2.1) 11/05/18 14:00 Urine Opiates Screen Negative (NEGATIVE) 11/05/18 16:25 Urine Methadone Screen Negative (NEGATIVE) 11/05/18 16:25 Ur Barbiturates Screen Negative (NEGATIVE) 11/05/18 16:25 Ur Phencyclidine Scrn Negative (NEGATIVE) 11/05/18 16:25 Ur Amphetamines Screen Negative (NEGATIVE) 11/05/18 16:25 U Benzodiazepines Scrn Negative (NEGATIVE) 11/05/18 16:25 U Oth Cocaine Metabols Negative (NEGATIVE) 11/05/18 16:25 U Cannabinoids Screen Negative (NEGATIVE) 11/05/18 16:25 Attending/Attestation - Attestation I have personally seen and examined this patient.: Yes I have fully participated in the care of the patient.: Yes I have reviewed all pertinent clinical information, including history, physical exam and plan: Yes Notes (Text): Atypical Chest Pain, ACS ruled out Pain prob referred pain, pt had recent Bariatic Surgery DM type II HTN Anxiety/Depression Obesity BMI 39 s/p Bariatric Surgery Troponin x [address] Pt[address] Card[address] Dr Garvin consulted - discussed event , test results - accdg to DR Garvin , pt had recent Cardiac cath and this was negative, pt to ff up with Dr Garvin as outpt cont home meds ff up [facility] in 1 wk ff up with Bariatric Surgeon at [facility] in [facility]
[2018-11-06] MEDS ORDERED: Sucralfate 1 gm/10 ml Oral Susp UD PO SCH (10:00)
[2018-11-06] MEDS ORDERED: Famotidine 40 MG/5 ML PO SCH (10:00)
--- NOTE | 2018-11-06 10:38 | CARD ---
APPROVED REPORT Date of service: 11/05/2018 EKG Measurement Heart [id number] <Conclusion> Normal sinus rhythm Nonspecific ST and T wave abnormality Abnormal ECG
[2018-11-06 12:28] VITALS: BP 130/88; TEMP 97.4
[2018-11-07 16:45] VITALS: O2SAT 98
[2018-11-07 16:47] VITALS: PULSE 94
== END 2018-11-06 15:00 | disposition home or self-care (01) ==
LOC: H.ER 11:31 → H.ERHOLD 17:10 → H.TEL 11-06 00:15
PROVIDERS: ADMIT Hospitalist; ATTEND Hospitalist
DX: R07.89 Other chest pain (principal); E11.22 Type 2 diabetes mellitus with diabetic chronic kidney disease; E66.9 Obesity, unspecified; Z68.39 Body mass index [BMI] 39.0-39.9, adult; I12.9 Hypertensive chronic kidney disease with stage 1 through stage 4 chronic kidney disease, or unspecified chronic kidney disease; N18.9 Chronic kidney disease, unspecified; F43.10 Post-traumatic stress disorder, unspecified; J45.909 Unspecified asthma, uncomplicated; K21.9 Gastro-esophageal reflux disease without esophagitis; R32 Unspecified urinary incontinence; Z79.02 Long term (current) use of antithrombotics/antiplatelets; Z79.82 Long term (current) use of aspirin; F31.9 Bipolar disorder, unspecified; E78.00 Pure hypercholesterolemia, unspecified; E78.5 Hyperlipidemia, unspecified; E86.0 Dehydration; Z79.84 Long term (current) use of oral hypoglycemic drugs; Z82.3 Family history of stroke; Z87.01 Personal history of pneumonia (recurrent); Z87.440 Personal history of urinary (tract) infections; Z87.442 Personal history of urinary calculi; Z90.710 Acquired absence of both cervix and uterus; Z98.84 Bariatric surgery status
CPT/HCPCS: 36415; 71045; 80048; 80053; 80324; 80345; 80346; 80349; 80353; 80358; 80361; 82948; 83880; 83992; 84484; 85025; 93005; 96372; 99285; G0378; J1650; J7030